=== PATIENT | female | born 1980 | race Hispanic/Latino ===

== ENCOUNTER 2022-03-22 00:36 | Day surgery (SDC) | payer OTHER, SELFPAY ==
[2022-03-19 12:06] VITALS: BMI 30.2
--- NOTE | 2022-03-19 12:12 | PC.NURSE ---
Report to the Outpatient Waiting Room, entrance under the green pavilion located off [facility], at time 1200 on date 03/22/22. OR Time: 1400. - You and your visitor will be asked to self-screen and do not enter if you have any COVID symptoms. - Only one visitor and NO children visitors are allowed at this time. - The patient visitor is requested to leave or wait in car when not with patient due to restrictions. - A mask is required within the hospital. Patients may have clear liquids (water, carbonated beverages, clear teas, apple juice) until 3 hours prior to surgery with a maximum of 20 ounces. - No food from midnight until time of surgery Take the following medications with a SIP of water the morning of surgery: ANTIBIOTIC Medications to discontinue per physician: N/A Date to take last dose: N/A Please no make-up, nail belarusian, hairspray, perfume, deodorant, or body powder the day of surgery. No jewelry (including any body piercings) or valuables the day of surgery, leave them at home. Please take a shower or bath the night before, or the morning of, surgery with an antibacterial soap. Wear comfortable, loose fitting clothing. - Jewelry must be removed prior to entering the operating room. Rings and piercings that are not removed may be cut off. - The hospital will not accept responsibility for valuables. - Please leave all valuables, including medications, at home the day of surgery. If you are going home after surgery, a licensed sales driver must drive you home. - NO public transportation without another adult. - We recommend that an adult stay with you for 24 hours following discharge. - We also recommend that you do not drive, make important decision, drink alcoholic beverages, or take any drugs that were not prescribed by your health care provider for at least 24 hours after your discharge time. Follow any additional instructions given to you from your surgeon. If you or anyone in your household have experienced Covid symptoms in the past week, please notify your surgeon or the nurse liaison at the phone number below for possible testing. Telephone instructions given to CARLOTA NEELY and asked if any additional questions and then verbalized understanding. Patient advised to call surgeon office or pre surgery nurse liaison [phone] if any additional questions.
--- NOTE | 2022-03-21 17:23 | PM.IMHP ---
H&P: HPI History of Present Illness Date/Time: 03/21/22 17:23 Chief Complaint: vaginal abscess Narrative: Rebekah is a 42yo who presents for vaginal abscess. She has had the same abscess incised and drained at least twice. She developed this abscess again on 03/18/22 and has been taking bactrim. She denies fever, chills. Review of Systems Review of Systems: All systems reviewed & are unremarkable except as noted in HPI and below PMFSH Past Medical History Medical History Factor V Leiden mutation affecting Family History Family History Mother Patient's mother is in good health Father Patient's father is in good health Sibling Patient's sister is in good health Patient's brother is in good health Social History Social History Smoking status: Never smoker Second hand tobacco smoke exposure: No Alcohol intake: current Alcohol use details: 2/MONTH Substance use: never Substance use type: does not use Living arrangements: with family Additional living arrangements comments: CHILDREN Spiritual care concerns: No Meds Home Medications and Allergies Home Medications Medication Instructions Recorded Confirmed Type sulfamethoxazole 800 1 tablet PO BID 7 days #14 tabs 03/18/22 03/19/22 Rx mg-trimethoprim 160 mg tablet (Bactrim DS) Allergies Allergy/AdvReac Type Severity Reaction Status Date / Time ciprofloxacin Allergy Unknown Rash Verified 03/19/22 12:04 Exam Const: General: cooperative, healthy appearing, comfortable and no acute distress Resp: Effort & Inspection: normal respiratory effort Cardio: Rate: regular rate GI: Inspection: normal to inspection GI Palp: No abdominal tenderness and Yes Soft to palpation : Other: deferred to OR Skin: General skin exam: normal color Neuro: General: patient oriented x3 Psych: Appearance: grossly normal Affect: normal affect Attitude: cooperative Assessment and Plan Assessment and plan (1) Abscess of vagina: Code(s): N76.0 - Acute vaginitis Status: Acute Plan - Pt has undergo incision and drainage in the office with antibiotic therapy at least twice - proceed with vaginal gland marsupialization, possible gland removal - risks and benefits explained in detail
--- NOTE | 2022-03-22 11:55 | WPDHPUPDATE1 ---
History and Physical Update Update Date/Time: 03/22/22 11:55 History and Physical has been reviewed, including an updated exam of the patient. There are NO changes in the patient's condition. Risks, benefits, and alternatives have been discussed and questions answered. Patient agrees to proceed with procedure.
[2022-03-22 12:00] VITALS: BP 144/84; PULSE 68; RESP 16; TEMP 36.2; O2SAT 100; BMI 29.9
[2022-03-22] MEDS: LACTATED RINGERS 1,000 ML 30 ML IV CONT (12:55)
--- NOTE | 2022-03-22 13:11 | P.PNAN_ITS ---
Anes - Initial Pre Proc Eval Procedure: Operation Date: 03/22/22 14:00 Proposed Procedures p Marsupialization Bartholin's Gland Cyst - Pat Gonsalez MD Date/Time: 03/22/22 13:11 Surgeon: Pat Gonsalez MD Pre Op Diagnosis: Bartholin Gland Cyst Patient Data Age: 42 Gender: F Height: 1.55 m Weight: 71.85 kg Allergies Allergy/AdvReac Type Severity Reaction Status Date / Time ciprofloxacin Allergy Unknown Rash Verified 03/22/22 12:41 Home Medications Medication Instructions Recorded Confirmed Type sulfamethoxazole 800 1 tablet PO BID 7 days #14 tabs 03/18/22 03/22/22 Rx mg-trimethoprim 160 mg tablet (Bactrim DS) Patient hx anesthesia problems: none Family hx anesthesia problems: none Results Review: All pre-operative results and documents have been reviewed as part of the pre- operative evaluation. [facility] Past Medical History Medical History Factor V Leiden mutation affecting Family History Family History Mother Patient's mother is in good health Father Patient's father is in good health Sibling Patient's sister is in good health Patient's brother is in good health Social History Social History Smoking status: Never smoker Second hand tobacco smoke exposure: No Alcohol intake: current Alcohol use details: 2/MONTH Substance use: never Substance use type: does not use Living arrangements: with family Additional living arrangements comments: CHILDREN Spiritual care concerns: No Anes - Eval Final PreProcedure Day of Procedure 03/22/22 13:11 Patient weight: overweight Heart: regular rate and rhythm Lungs: clear to auscultation Airway: Mallampati scale class II Neurological: alert and oriented Last oral intake: >/= 8 hours ASA classification: II Emergent: no Anesthetic plan: proceed Anesthesia type and monitoring: general GIVS and standard monitoring Results Review: All pre-operative results and documents have been reviewed as part of the pre- operative evaluation. Informed Consent: The patient's anesthetic plan and its attendant risks and benefits were discussed with the patient/family/POA. Questions were solicited and answers provided to the satisfaction of the patient/family/POA.
[2022-03-22] MEDS: ceFAZolin 2 GM/D5W 50 ML 2 GM/50 ML BAG IVPB (13:20)
[2022-03-22 14:22] VITALS: BP 106/70; PULSE 65; RESP 16; O2SAT 96
--- NOTE | 2022-03-22 14:23 | W.PM.PROC2 ---
Procedure Note - Detailed Date of Procedure 03/22/22 Pre-op Diagnosis Recurrent Seligman's Gland Abscess Post-op Diagnosis Same Procedure Performed Seligman's gland removal Surgeon Pat Gonsalez MD Anesthesia MAC and Local (8cc of lidocaine w/ epi used) Indications Recurrent skene's gland abscess s/p I&D and even word catheter placement with recurrence. Findings skenes gland abscess almost fully drained; only small punctate area draining a small amount of blood; skene's gland measured ~ 1x1cm; removed in almost entirety. Good hemostasis at end of case. Description of Procedure Rebekah was taken to the operating room where she was placed under MAC sedation. She was then prepped and draped in the usual sterile fashion in the dorsal lithotomy position with her legs in low Dipak stirrups. A time-out was performed and she received 2 g Ancef. Attention was turned down below where a [place]spana catheter was placed under aseptic technique. The left Seligman's gland abscess was noted to be mostly drained, but a small punctate area of bleeding/drainage was noted. The surrounding tissues were infiltrated with lidocaine with epinephrine. Using Metzenbaum scissors that punctate incision was extended to reveal the inside of the Seligman's gland. I attempted to perform a marsupialization, however it was unsuccessful and the opening was too small to allow for proper drainage. I then proceeded to perform a Seligman's gland removal. Using Metzenbaum scissors and the Bovie cautery the gland was almost completely excised without complications. I paid close attention on the urethral side to not damage the urethra (which is also why a Espana catheter was in place.) Pressure was applied to the area to decrease bleeding. A 3-0 Vicryl was used to reapproximate the deeper segment of the tissue and good hemostasis was noted. The overlying mucosa was then reapproximated using 3-0 Vicryl in a running subcuticular fashion. Good hemostasis was noted. The incision site was once again infiltrated with lidocaine for better pain control. The [place] catheter was removed. Sponge, lap, instrument, and needle counts were correct at the end the procedure. Patient was awoken from anesthesia and taken to recovery in a stable condition with plans of same-day discharge home. She will be provided a Zoe bottle. Estimated Blood Loss 20 IV Fluids 800 Packing No Pathology Yes (skene's gland abscess removal) Complications No immediate complications Condition Stable Disposition Same day [facility] Billing Surgery - Charge Forward: Surgery Billing
[2022-03-22] MEDS: LIDO 1%/EPINEPHRINE 1:100,000 50 ML VIAL INFILTRATE (14:25)
[2022-03-22 14:49] VITALS: BP 122/77; PULSE 54; RESP 16
--- NOTE | 2022-03-22 15:08 | SUR.PHASEII ---
1500 - ambulated to bathroom. gait steady. bret rogers on pt.
[2022-03-22 15:14] VITALS: BP 121/86; PULSE 55; RESP 16
[2022-03-22 15:35] VITALS: BP 108/80; PULSE 55; RESP 16
== END 2022-03-22 15:30 | disposition home or self-care (01) ==
PROVIDERS: PCP Internal Medicine; Visit Provider Obstetrics & Gynecology
PROC: (CPT 56440; principal; 2022-03-22 14:00)
DX: N34.0 Urethral abscess (principal); D68.51 Activated protein C resistance
CPT/HCPCS: 53270; 88305; J0690; J2250; J2270; J2704; J7120

== ENCOUNTER 2022-10-29 09:16 | Outpatient (CLI) | payer OTHER, SELFPAY ==
[2022-10-29 19:11] LABS: Basophils Absolute Auto 0.1 K/mm3 (0.0-0.1); Basophils Percent Auto 0.9 % (0.2-1.2); Eosinophils Absolute Auto 0.2 K/mm3 (0-0.3); Eosinophils Percent Auto 2.6 % (0-4.4); Hematocrit 42.3 % (37.0-47.0); Hemoglobin 13.7 g/dL (12.0-15.0); Immature Granulocyte Absolute 0.01 K/mm3 (0.00-0.031); Immature Granulocyte Percent A 0.2 % (0-0.5); Lymphocytes Absolute Auto 2.16 K/mm3 (0.9-3.2); Lymphocytes Percent Auto 33.1 % (18.3-44.2); Mean Corpuscular HGB Conc 32.4 g/dl (32-36); Mean Corpuscular Hemoglobin 31.2 pg (26-34); Mean Corpuscular Volume 96.4 fl (80-100); Mean Platelet Volume 11.5 fl (7.4-10.4); Monocytes Absolute Auto 0.5 K/mm3 (0.1-0.6); Monocytes Percent Auto 7.1 % (2.6-8.5); Neutrophils Absolute Auto 3.7 K/mm3 (1.3-6.7); Neutrophils Percent Auto 56.1 % (45.5-73.1); Platelet Count Result 310 k/mm3 (150-375); Red Blood Count 4.39 M/mm3 (4.2-5.4); Red Cell Distribution Width 13.2 % (11.5-14.5); White Blood Count 6.5 K/mm3 (4.5-10.0)
[2022-10-29 19:17] LABS: Alanine Aminotransferase 21 U/L (6-35); Albumin Level 4.4 g/dL (3.5-5.1); Alkaline Phosphatase 74 U/L (38-126); Anion Gap 4 mmol/L (8-16); Aspartate Amino Transferase 29 U/L (14-36); Bilirubin,Total 0.4 mg/dL (0.2-1.3); Blood Urea Nitrogen 9 mg/dL (7-17); Calcium 8.8 mg/dL (8.4-10.2); Carbon Dioxide 29 mmol/L (22-30); Chloride 105 mmol/L (98-107); Cholesterol 200 mg/dL (0-200); Estimated Glomerular Filt Rate > 60; Glucose 102 mg/dL (65-110); HDL Direct 53 mg/dL; Potassium 4.4 mmol/L (3.4-5.0); Sodium 138 mmol/L (137-145); Triglycerides 107 mg/dL (<150)
[2022-10-29 19:29] LABS: LDL Cholesterol Direct 111 mg/dL
[2022-10-29 19:51] LABS: Vitamin D 25 Hydroxy 33.1 ng/mL
== END 2022-10-29 09:17 | disposition home or self-care (01) ==
LOC: ANHGOSHLAB 09:17
PROVIDERS: PCP Family Medicine; Visit Provider Family Medicine
DX: E78.5 Hyperlipidemia, unspecified (principal); R53.83 Other fatigue; Z13.228 Encounter for screening for other metabolic disorders; Z13.29 Encounter for screening for other suspected endocrine disorder; E55.9 Vitamin D deficiency, unspecified
CPT/HCPCS: 36415; 80053; 80061; 82306; 84443; 85025

== ENCOUNTER 2024-01-30 11:00 | Outpatient (CLI) | payer OTHER, SELFPAY ==
[2024-01-30 14:23] LABS: Basophils Percent Auto 0.6 % (0.2-1.2); Eosinophils Absolute Auto 0.3 K/mm3 (0-0.3); Eosinophils Percent Auto 4.1 % (0-4.4); Hematocrit 42.4 % (37.0-47.0); Hemoglobin 13.9 g/dL (12.0-15.0); Immature Granulocyte Absolute 0.01 K/mm3 (0.00-0.031); Immature Granulocyte Percent A 0.1 % (0-0.5); Lymphocytes Absolute Auto 1.96 K/mm3 (0.9-3.2); Lymphocytes Percent Auto 28.9 % (18.3-44.2); Mean Corpuscular HGB Conc 32.8 g/dl (32-36); Mean Corpuscular Hemoglobin 30.4 pg (26-34); Mean Corpuscular Volume 92.8 fl (80-100); Mean Platelet Volume 10.5 fl (7.4-10.4); Monocytes Absolute Auto 0.5 K/mm3 (0.1-0.6); Monocytes Percent Auto 6.6 % (2.6-8.5); Neutrophils Absolute Auto 4.1 K/mm3 (1.3-6.7); Neutrophils Percent Auto 59.7 % (45.5-73.1); Platelet Count Result 328 k/mm3 (150-375); Red Blood Count 4.57 M/mm3 (4.2-5.4); Red Cell Distribution Width 13.5 % (11.5-14.5); White Blood Count 6.8 K/mm3 (4.5-10.0)
[2024-01-30 14:51] LABS: LDL Cholesterol Direct 131 mg/dL
[2024-01-30 14:55] LABS: Alanine Aminotransferase 19 U/L (6-35); Albumin Level 4.2 g/dL (3.5-5.1); Alkaline Phosphatase 70 U/L (38-126); Anion Gap 9 mmol/L (4-12); Aspartate Amino Transferase 39 U/L (14-36); Bilirubin,Total 0.6 mg/dL (0.2-1.3); Blood Urea Nitrogen 11 mg/dL (7-17); Calcium 8.9 mg/dL (8.4-10.2); Carbon Dioxide 26 mmol/L (22-30); Chloride 104 mmol/L (98-107); Cholesterol 205 mg/dL (0-200); Estimated Glomerular Filt Rate > 60; Glucose 88 mg/dL (65-110); HDL Direct 52 mg/dL; Sodium 139 mmol/L (137-145); Triglycerides 77 mg/dL (<150)
[2024-01-30 15:02] LABS: Free T4 Free Thyroxine 1.38 ng/mL (0.78-2.19)
== END 2024-01-30 11:01 | disposition home or self-care (01) ==
LOC: ANHGOSHLAB 11:01
PROVIDERS: PCP Family Medicine; Visit Provider Family Medicine
DX: Z13.220 Encounter for screening for lipoid disorders (principal); R53.83 Other fatigue; Z13.228 Encounter for screening for other metabolic disorders; Z13.29 Encounter for screening for other suspected endocrine disorder; D68.51 Activated protein C resistance
CPT/HCPCS: 36415; 80053; 80061; 84439; 84443; 85025

== ENCOUNTER 2024-06-08 12:53 | Outpatient (CLI) | payer OTHER, SELFPAY | END 2024-06-08 12:54 | disposition home or self-care (01) | PROVIDERS: PCP Family Medicine; Visit Provider Obstetrics & Gynecology | DX: N93.9 Abnormal uterine and vaginal bleeding, unspecified (principal) | CPT/HCPCS: 36415; 86850; 86900; 86901 ==

== ENCOUNTER 2024-06-14 00:09 | Day surgery (SDC) | payer OTHER, SELFPAY ==
[2024-06-08 08:33] VITALS: BMI 30.1
--- NOTE | 2024-06-08 08:34 | PC.NURSE ---
Report to the Outpatient Waiting Room, entrance under the green pavilion located off [facility], at time _0630_ on date _[id number]_. Planned Procedure Time: _0830_.? Time changes happen often and if your time is changed the preop area will call you the afternoon before. - You and your visitor will be asked to self-screen and do not enter if you have any COVID symptoms. Please call surgeon if you need to reschedule. - A mask is optional within the hospital at this time. Patients may have clear liquids (water, carbonated beverages, clear teas, apple juice) until 3 hours prior to surgery with a maximum of 20 ounces. - No food from midnight until time of surgery and no smoking. This includes no chewing gum, candy or mints. Take only the following medications with a SIP of water on the morning of surgery: ___None___ DO NOT STOP ANY OF YOUR OTHER PRESCRIPTION MEDICATIONS PRIOR TO SURGERY EXCEPT THE FOLLOWING Medications to discontinue per physician __None Please no make-up, nail south african, hairspray, perfume, deodorant, or body powder the day of surgery.? No jewelry (including any body piercings) or valuables the day of surgery, leave them at home.? Please take a shower or bath the night before, or the morning of, surgery with an antibacterial soap.? Wear comfortable, loose fitting clothing.? - Jewelry must be removed prior to entering the operating room.? Rings and piercings that are not removed may be cut off. - The hospital will not accept responsibility for valuables.? - Please leave all valuables, including medications, at home the day of surgery. If you are going home after surgery, a licensed cdl flatbed truck driver must drive you home.? - NO public transportation without another adult if you receive anesthesia. - We recommend that an adult stay with you for 24 hours following discharge. - We also recommend that you do not drive, make important decision, drink alcoholic beverages, or take any drugs that were not prescribed by your health care provider for at least 24 hours after your discharge time. Follow any additional instructions given to you from your surgeon. Telephone instructions given to _Irma_and asked if any additional questions and then verbalized understanding. Patient advised to call surgeon office or pre surgery nurse liaison [phone] if any additional questions.
--- NOTE | 2024-06-13 13:47 | P.HP_ITS ---
H&P: HPI History of Present Illness Date/Time: 06/13/24 13:47 Chief Complaint: AUB, fibroid uterus Narrative: Rebekah is a 44yo [id number] who presents for surgical management for AUB/fibroid uterus. For the last two years, she has reported that her menses now last 7 day but has heavy bleeding and cramping x2 days. She has to use pads and tampons at the same time and change them frequently and is passing large clots those first two days. She had blood work recently with her PCP and had normal blood counts and TSH. She has Factor V Leiden. She had a DOWNSTAIRS MAID US 01/2023 showing 4cm fibroid; possibly type 2 submucosal. She had a normal EMB 04/2024 and normal pap smear 12/2022. She has a h/o s/p skene's gland removal 03/2022 and denies any issues with abscesses anymore. Review of Systems Constitutional: Constitutional: Denies chills, Denies fever(s) and Denies headache(s) Eyes: Eyes: Denies change in vision ENT: Denies dizziness and Denies headache(s) Cardiovascular: Cardiovascular: Denies chest pain and Denies dyspnea Respiratory: Respiratory: Denies cough and Denies dyspnea Gastrointestinal: Gastrointestinal: Denies abdominal pain and Denies change in stool character Genitourinary: Genitourinary: Reports abnormal menses, Reports menorrhagia, Reports dysmenorrhea, Denies pelvic pain, Denies vaginal discharge, Denies vaginal odor and Denies vaginal pruritus Neurologic: Denies dizziness and Denies headache(s) Psychiatric: Psychiatric: Denies anxiety and Denies depression [facility] Past Medical History Medical History Factor V Leiden mutation affecting Gestational diabetes Surgical History Surgical History Delivery by section (01/16/06) repeat c/s Delivery by section (07/21/99) primary c/s failure to dilate H/O abdominoplasty (08/12/19) H/O rhinoplasty (08/12/19) H/O tubal ligation (01/16/06) History of gynecological procedure (01/23/11) cryo History of gynecological procedure (03/22/22) [place]'s gland removal History of hysteroscopy suction D&C missed AB History of hysteroscopy (06/18/21) hysteroscopic D&C , myomectomy / Fibroid Hx of breast implants, bilateral (08/12/19) Family History Family History Mother Patient's mother is in good health Father Patient's father is in good health Hypertension Sibling Patient's sister is in good health Patient's brother is in good health Social History Social History Smoking status: Never smoker Second hand tobacco smoke exposure: No Alcohol intake: current Alcohol use details: social Substance use: never Substance use type: does not use Do You Feel Safe in your Home?: Yes Lack of Transportation: No Lack of Food: Never True Current Housing: I Have Housing Concerned About Future Housing: No Difficulty Paying Gas/Electric Bills: No Difficulty Paying for Meds: No Currently Unemployed: No Education: High School Diploma/GED Difficulty w/ Childcare or Family Care: No Living arrangements: with family Occupation/Education: occupation Gender identity (if verbalized by the patient): Female Sexual Orientation (if Verbalized by the Patient): Straight or Heterosexual Spiritual care concerns: No Agree to blood products: Yes Meds Home Medications and Allergies Home Medications Medication Instructions Recorded Confirmed Type No Home Medications 01/30/24 06/08/24 History Allergies Allergy/AdvReac Type Severity Reaction Status Date / Time ciprofloxacin Allergy Unknown Rash Verified 06/08/24 08:27 Exam Const: General: cooperative, healthy appearing, comfortable and no acute distress Orientation/consciousness: patient oriented x3 Resp: Effort & Inspection: normal respiratory effort Cardio: Rate: regular rate GI: Inspection: normal to inspection GI Palp: No abdominal tenderness and Yes Soft to palpation : Other: deferred to OR Skin: General skin exam: normal color Neuro: General: patient oriented x3 Extrem: General: normal to inspection Psych: Appearance: grossly normal Affect: normal affect Attitude: cooperative Assessment and Plan Assessment and plan (1) Fibroid uterus: Code(s): D25.9 - Leiomyoma of uterus, unspecified Status: Acute (2) Menorrhagia: Code(s): N92.0 - Excessive and frequent menstruation with regular cycle Status: Acute Plan - DOWNSTAIRS MAID US showed 4cm type 2 submucosal fibroid - Pap and EMB UTD and normal - Recommend proceeding with hysterectomy or IUD as she cannot have systemic hormones; would recommend hysterectomy as the Mirena IUD may not work well with the IUD and can continue to grow and if it doesn't work; would potentially need open hysterectomy - Pt desires to proceed with robotic assisted total laparoscopic hysterectomy with bilateral salpingectomy and cystoscopy - Risks and benefits of surgery discussed in detail including but not limited to pain, bleeding, injury to nearby structures (bowel, bladder, ureter, ovary, blood vessels, nerves) or infection (skin, vaginal, pelvic). - I have also discussed the recommended time off and natural course of healing/downtime
[2024-06-14] VITALS (10 sets, daily range): BP systolic 97–134; BP diastolic 60–84; PULSE 71–94; RESP 14–18; TEMP 36.1–36.8; O2SAT 96–100
--- NOTE | 2024-06-14 06:37 | WPDHPUPDATE1 ---
History and Physical Update Update Date/Time: 06/14/24 06:37 History and Physical has been reviewed, including an updated exam of the patient. There are NO changes in the patient's condition. Risks, benefits, and alternatives have been discussed and questions answered. Patient agrees to proceed with robotic assisted total laparoscopic hysterectomy with bilateral salpingectomy and cystoscopy.
[2024-06-14] MEDS: ACETAMINOPHEN 500 MG TABLET 1000 MG PO ×3 (07:00→18:38)
[2024-06-14] MEDS: LACTATED RINGERS 1,000 ML 30 ML IV CONT ×2 (07:00→10:54)
[2024-06-14] MEDS: KETOROLAC 15 MG/ML VIAL (*BKC) IV PUSH (07:05)
[2024-06-14 07:22] LABS: BEDSIDEPREGUCG Negative (Negative)
--- NOTE | 2024-06-14 08:15 | WPDANESEPPF ---
Anes - Initial Pre Proc Eval Procedure: Operation Date: 06/14/24 08:30 Proposed Procedures p Robotic Assisted Total Laparoscopic Hysterectomy, Bilateral Salpingectomy - Pat Gonsalez MD Date/Time: 06/14/24 08:15 Surgeon: Pat Gonsalez MD Pre Op Diagnosis: abn uterine bleeding Patient Data Age: 44 Gender: F Height: 1.55 m Weight: 74.1 kg Last Vital Signs Temp 97.7 F 06/14/24 06:35 Pulse 72 06/14/24 06:35 Resp 16 06/14/24 06:35 BP 114/82 06/14/24 06:35 Pulse Ox 100 06/14/24 06:35 O2 Del Method Room Air 06/14/24 06:35 Allergies Allergy/AdvReac Type Severity Reaction Status Date / Time ciprofloxacin Allergy Unknown Rash Verified 06/14/24 07:27 Home Medications Medication Instructions Recorded Confirmed Type No Home Medications 01/30/24 06/14/24 History Laboratory Tests 06/14/24 07:20 POC Urine HCG, Qual Negative (Negative) Patient hx anesthesia problems: none Family hx anesthesia problems: none Results Review: All pre-operative results and documents have been reviewed as part of the pre-operative evaluation. [facility] Past Medical History Medical History Factor V Leiden mutation affecting Gestational diabetes Surgical History Surgical History Delivery by section (01/16/06) repeat c/s Delivery by section (07/21/99) primary c/s failure to dilate H/O abdominoplasty (08/12/19) H/O rhinoplasty (08/12/19) H/O tubal ligation (01/16/06) History of gynecological procedure (01/23/11) cryo History of gynecological procedure (03/22/22) [place]'s gland removal History of hysteroscopy suction D&C missed AB History of hysteroscopy (06/18/21) hysteroscopic D&C , myomectomy / Fibroid Hx of breast implants, bilateral (08/12/19) Family History Family History Mother Patient's mother is in good health Father Patient's father is in good health Hypertension Sibling Patient's sister is in good health Patient's brother is in good health Social History Social History Smoking status: Never smoker Second hand tobacco smoke exposure: No Alcohol intake: current Alcohol use details: social Substance use: never Substance use type: does not use Do You Feel Safe in your Home?: Yes Lack of Transportation: No Lack of Food: Never True Current Housing: I Have Housing Concerned About Future Housing: No Difficulty Paying Gas/Electric Bills: No Difficulty Paying for Meds: No Currently Unemployed: No Education: High School Diploma/GED Difficulty w/ Childcare or Family Care: No Living arrangements: with family Occupation/Education: occupation Gender identity (if verbalized by the patient): Female Sexual Orientation (if Verbalized by the Patient): Straight or Heterosexual Spiritual care concerns: No Agree to blood products: Yes Anes - Eval Final PreProcedure Day of Procedure 06/14/24 08:15 Patient weight: normal Heart: regular rate and rhythm Lungs: clear to auscultation Airway: Mallampati scale class II Neurological: alert and oriented Last oral intake: >/= 8 hours ASA classification: II Emergent: no Anesthetic plan: proceed Anesthesia type and monitoring: general ETT and standard monitoring Results Review: All pre-operative results and documents have been reviewed as part of the pre-operative evaluation. Informed Consent: The patient's anesthetic plan and its attendant risks and benefits were discussed with the patient/family/POA. Questions were solicited and answers provided to the satisfaction of the patient/family/POA.
[2024-06-14] MEDS: ceFAZolin 2 GM/D5W 50 ML 2 GM/50 ML BAG IVPB (08:46)
[2024-06-14] MEDS: metroNIDAZOLE 500 MG/ISO 100ML 500 MG/100 ML BAG 100 MG IVPB (08:59)
[2024-06-14] MEDS: LIDO 1%/EPINEPHRINE 1:100,000 20 ML VIAL 30 ML INFILTRATE (09:23)
--- NOTE | 2024-06-14 10:35 | W.PM.PROC2 ---
Procedure Note - Detailed Date of Procedure 06/14/24 Pre-op Diagnosis abn uterine bleeding fibroid uterus Post-op Diagnosis Same Procedure Performed Robotic assisted total laparoscopic hysterectomy, bilateral salpingectomy, and cystoscopy Surgeon Pat Gonsalez MD Interlocking Machine Operator Isiah Anesthesia MAC and Local (20cc of 1% lido w/ epi) Findings Uterus sounded to 10cm; cervix 3cm. enlarged, bulky uterus; possible fundal/posterior fibroid. History of tubal ligation; right paratubal cyst ~3cm. Normal bilateral ovaries. Normal bladder w/o defects or masses. Bilateral ureteral efflux noted. Surgicel powder used. Good hemostasis at end of case. Uterus/cervix/bilateral fallopian tubes: 274.5g Description of Procedure Rebekah was taken to the operating room where she was placed under general anesthesia without issues. She received 2 g Ancef and 500mg Metronidazole. She was then prepped and draped in the usual sterile fashion in the dorsal lithotomy position with her legs in low Dipak stirrups, her arms tucked at her side, with a strap over her chest. A time-out was performed. My attention was turned down below where a [place] catheter was placed. A bivalve speculum was placed within the vagina. The cervix was easily identified and the anterior lip of the cervix was grasped with single-tooth tenaculum. The uterus was then sounded to 10cm. The cervix was serially dilated to allow for the MITCH uterine manipulator; which was placed w/o issue (8cm tip with 3cm cervical ring). My gloves were changed and attention was then turned to the abdomen. A 5 mm trocar was placed under direct visualization at [place] point without issue. Once intra-abdominal placement was confirmed, the abdomen was insufflated with carbon dioxide gas. An abdominal survey was performed and the above findings were noted. Two additional ports were placed on the right and left side and the camera port was placed supraumbilical under direct visualization without issues. The 5mm port was switched out for the accessory port under direct visualization. The patient was then placed in deep Trendelenburg, with the legs slightly lowered. The robot was then docked. The instruments were placed intra-abdominally under direct visualization. I then un-scrubbed and went to the robotic console. I then started my hysterectomy on the right side. The ureter was easily identified transperitoneally and well out of the surgical field. The right fallopian tubal stump and paratubal cyst were elevated and the mesosalpinx was coagulated and transected. The round ligament was clamped, coagulated, and transected. The uterine ovarian artery was then serially clamped, coagulated, and transected with good hemostasis. The broad ligament was then dissected anteriorly and posteriorly skeletonizing the uterine artery. The bladder flap was then developed on the right side and carried around the left, anteriorly. The uterine artery was then serially clamped and coagulated. Once the vessel was adequately coagulated, it was then transected with good hemostasis. The same procedure was then performed on the left side without complications. The uterus was noted to be devascularized. The bladder flap was verified out of the surgical field and the colpotomy was started anteriorly and continued in a clockwise fashion until the uterus was released. The uterus was removed from the abdomen via the vagina without complications. The vaginal cuff had small bleeders that were made hemostatic without complications. The vaginal cuff was then reapproximated using a 0 V lock suture. The pelvis was then irrigated and suctioned free of all clots and debris. Surgicel powder was placed over the raw edges; the hemoperitoneum was released and good hemostasis was noted. All instruments were removed from the abdomen and the robot was undocked. I then scrubbed back in and verified that the cuff was intact without any defects. The [place] catheter was then removed. The cystoscope was placed within the bladder, which filled without difficulty. Bilateral ureteral efflux was noted. The bladder was examined and no defects or abnormalities were visualized. The bladder was drained. The cystoscope was removed. The [place] catheter was replaced under aseptic technique. The 4 laparoscopic incisions were reapproximated using 4-0 Monocryl and covered with Dermabond. The laparoscopic incisions were infiltrated with local anesthesia for better pain control. Sponge, lap, instrument, and needle counts were correct at the end the procedure. Patient was awoken from general anesthesia and taken to recovery in a stable conditions with plans of overnight stay. Estimated Blood Loss 20 IV Fluids 1,500 Urine Output 50 Pathology Yes (Uterus, cervix, bilateral fallopian tubes) Complications No immediate complications Condition Stable Disposition Floor [facility] Billing Surgery - Charge Forward: Surgery Billing
[2024-06-14] MEDS: fentaNYL CITRATE INJ (*CRX) 100 MCG/2 ML VIAL 25 MCG IV PUSH ×3 (10:57→11:07)
[2024-06-14] MEDS: diphenhydrAMINE HCl INJ 50 MG/ML VIAL 12.5 MG IV PUSH ×2 (11:10→11:27)
--- NOTE | 2024-06-14 12:13 | PC.NURSE ---
This patient, Rebekah Rae, was received from PACU on 06/14/24 at 1213. Patient/family oriented to unit policies and routines.
[2024-06-14] MEDS: SIMETHICONE 80 MG TAB.CHEW PO ×2 (12:50→16:27)
[2024-06-14] MEDS: KETOROLAC 30 MG/ML VIAL (*BKC) IV PUSH ×2 (12:51→18:38)
[2024-06-14] MEDS: DEXTROSE 5%/LACTATED RINGERS 1,000 ML 125 ML IV CONT (12:51)
[2024-06-14] MEDS: DOCUSATE SODIUM 100 MG CAPSULE PO (16:27)
[2024-06-14] MEDS: oxyCODONE HCL (*CRX) 5 MG TAB IR 10 MG PO (16:27)
--- NOTE | 2024-06-14 17:32 | PC.NURSE ---
1230 Upon assessment, serosanguineous drainage noted on gown from incision above umbilicus, no active drainage seen. RN applied telfa pad and tape to the incision. MD to be called. [address] message [address] Dr[address] Gonsalez voicemail, she is in the OR with another case. 1255 RN checked telfa pad and no drainage seen. [address] Gonsalez advised about the drainage seen prior, she would like steri strips, telfa and tape applied to the incision, she will be up to see the patient later today. 1315 RN applied 2 (1/2 inch) steri strips, telfa pad and paper tape to the incision above the umbilicus. 1505 Dr. Gonsalez @ patient bedside to assess the incision. No further orders.
[2024-06-14] MEDS: ENOXAPARIN 30 MG/0.3 ML SYRINGE SUB-Q (21:03)
[2024-06-15] MEDS: KETOROLAC 30 MG/ML VIAL (*BKC) IV PUSH (01:48)
[2024-06-15] MEDS: ACETAMINOPHEN 500 MG TABLET 1000 MG PO ×2 (01:48→07:07)
[2024-06-15 03:30] VITALS: BP 110/66; PULSE 64; RESP 18; TEMP 36.2; O2SAT 98
[2024-06-15 05:47] LABS: Basophils Percent Auto 0.2 % (0.2-1.2); Eosinophils Percent Auto 0.1 % (0-4.4); Immature Granulocyte Absolute 0.08 K/mm3 (0.00-0.031); Immature Granulocyte Percent A 0.5 % (0-0.5); Lymphocytes Absolute Auto 2.36 K/mm3 (0.9-3.2); Lymphocytes Percent Auto 15.1 % (18.3-44.2); Mean Corpuscular HGB Conc 33.3 g/dl (32-36); Mean Corpuscular Hemoglobin 30.5 pg (26-34); Mean Corpuscular Volume 91.4 fl (80-100); Monocytes Absolute Auto 0.9 K/mm3 (0.1-0.6); Monocytes Percent Auto 5.5 % (2.6-8.5); Neutrophils Absolute Auto 12.3 K/mm3 (1.3-6.7); Neutrophils Percent Auto 78.6 % (45.5-73.1); Platelet Count Result 303 k/mm3 (150-375); Red Blood Count 3.94 M/mm3 (4.2-5.4); Red Cell Distribution Width 13.3 % (11.5-14.5); White Blood Count 15.6 K/mm3 (4.5-10.0)
[2024-06-15 06:03] LABS: Anion Gap 4 mmol/L (4-12); Blood Urea Nitrogen 9 mg/dL (7-17); Calcium 8.1 mg/dL (8.4-10.2); Carbon Dioxide 22 mmol/L (22-30); Chloride 107 mmol/L (98-107); Estimated CRCL calculation 108 ml/min; Estimated Glomerular Filt Rate > 60; Glucose 99 mg/dL (65-110); Potassium 3.8 mmol/L (3.4-5.0); Sodium 133 mmol/L (137-145)
[2024-06-15] MEDS: oxyCODONE HCL (*CRX) 5 MG TAB IR 10 MG PO (07:01)
[2024-06-15] MEDS: DOCUSATE SODIUM 100 MG CAPSULE PO (07:01)
[2024-06-15] MEDS: SIMETHICONE 80 MG TAB.CHEW PO (07:01)
[2024-06-15] MEDS: IBUPROFEN 600 MG TABLET PO (07:07)
--- NOTE | 2024-06-15 07:35 | PM.GYNPNOP ---
INSTITUTION DIRECTOR - A/P Assessment and plan (1) S/P laparoscopic hysterectomy: Code(s): Z90.710 - Acquired absence of both cervix and uterus Status: Acute Postoperative Procedures: Procedures Operation Date: 06/14/24 08:30 Actual Procedure Side Surgeon p Robotic Assisted Total Laparoscopic Hysterectomy, Bilateral Salpingectomy Bilateral Pat Gonsalez MD Postoperative day: 1 Postoperative status: doing well Postoperative plan: routine post-op care, discharge and other (awaiting flatus; if nothing after breakfast, will do suppository) Time Spent With Patient Time: Total time spent is greater than 50% in coordination of care (as documented) at patient's floor/unit and/or counseling patient: Time with patient: less than 15 minutes INSTITUTION DIRECTOR- PN:Subj Post-Op Subjective Date/time seen: 06/15/24 07:35 Interval history: POD#1 Rebekah reports doing well today. No issues overnight. Her pain is controlled with PO meds. She has tolerated regular diet. She denies any vaginal bleeding. She has voided. But she has not passed flatus-- feels a lot of movement in her bowels though. She has ambulated and denies any symptoms of anemia. Review of Systems Review of Systems: All systems reviewed & are unremarkable except as noted in HPI and below (HPI) Constitutional: Constitutional: Denies chills, Denies fever(s) and Denies headache(s) Eyes: Eyes: Denies change in vision ENT: Denies dizziness and Denies headache(s) Cardiovascular: Cardiovascular: Denies chest pain and Denies rapid heart rate Respiratory: Respiratory: Denies cough Genitourinary: Genitourinary: Denies abnormal vaginal bleeding Neurologic: Denies dizziness and Denies headache(s) Exam Const: General: cooperative, healthy appearing, comfortable and no acute distress Orientation/consciousness: patient oriented x3 Resp: Effort & Inspection: normal respiratory effort Auscultation: clear to auscultation bilaterally Cardio: Rate: regular rate GI: Inspection: normal to inspection and incision ( LSC incisions c/d/i) GI Palp: Yes abdominal tenderness (appropriate) and Yes Soft to palpation Auscultation: normal bowel sounds : Other: normal bleeding on pad Skin: General skin exam: normal color Neuro: General: patient oriented x3 Psych: Appearance: grossly normal Affect: normal affect Attitude: cooperative INSTITUTION DIRECTOR - PN: Obj Data Vital Signs Vital Signs: Vital Signs - 24 hr 06/14/24 06:35 06/14/24 10:46 06/14/24 11:00 Temperature 97.7 F 98.2 F Pulse Rate 72 94 85 Respiratory Rate 16 14 15 Blood Pressure 114/82 134/84 97/60 L Pulse Oximetry 100 100 100 Oxygen Delivery Room Air Trach Collar Simple Face Mask Oxygen Flow Rate 8 8 06/14/24 11:15 06/14/24 11:30 06/14/24 11:45 Temperature Pulse Rate 72 74 73 Respiratory Rate 14 16 14 Blood Pressure 104/72 100/60 105/63 Pulse Oximetry 100 100 100 Oxygen Delivery Simple Face Mask Room Air Room Air Oxygen Flow Rate 8 06/14/24 11:58 06/14/24 12:30 06/14/24 16:40 Temperature 97.6 F 98.0 F Pulse Rate 74 77 73 Respiratory Rate 14 16 16 Blood Pressure 111/70 118/74 110/63 Pulse Oximetry 98 96 97 Oxygen Delivery Room Air Oxygen Flow Rate 06/14/24 18:35 Temperature 97 F L Pulse Rate 71 Respiratory Rate 18 Blood Pressure 116/69 Pulse Oximetry 100 Oxygen Delivery Oxygen Flow Rate Intake/Output Intake/Output: Intake & Output 06/11/24 06/12/24 06/13/24 06/14/24 23:59 23:59 23:59 23:59 Intake Total 3820 Output Total 1030 Balance 2790 Meds/Results Medications: Active Medications Generic Name Dose Route Start Last Admin Trade Name Freq PRN Reason Stop Dose Admin Acetaminophen 1,000 mg 06/14/24 12:06 06/14/24 18:38 Acetaminophen 500 Mg Tablet PO 1,000 mg Q6HR RAHUL Administration Docusate Sodium 100 mg 06/14/24 17:00 06/14/24 16:27 Docusate Sodium 100 Mg Capsule PO 100 mg BID RAHUL Administration Hydromorphone HCl 0.5 mg 06/14/24 12:06 Hydromorphone Hcl Inj (*Crx) 1 Mg/Ml Syr IV PUSH Q2H PRN Breakthrough Pain Rated 4-6 or NPO Dextrose/Lactated Ringer's 1,000 mls @ 125 mls/hr 06/14/24 12:06 06/14/24 16:30 Dextrose 5%/Lactated Ringers IV CONT Infused .Q8H RAHUL Infusion Ibuprofen 600 mg 06/15/24 06:00 Ibuprofen 600 Mg Tablet PO Q6HR RAHUL Ketorolac Tromethamine 30 mg 06/14/24 12:06 06/14/24 18:38 Ketorolac 30 Mg/Ml Vial (*Bkc) IV PUSH 06/15/24 00:01 30 mg Q6HR RAHUL Administration Naloxone HCl 0.1 mg 06/14/24 12:06 Naloxone Hcl 0.4 Mg/Ml Vial IV PUSH Q2M PRN Respiratory rate less than 10 Ondansetron HCl 4 mg 06/14/24 12:06 Ondansetron Inj 4 Mg/2 Ml Vial IV PUSH Q6H PRN Nausea And Vomiting Oxycodone HCl 5 mg 06/14/24 12:06 Oxycodone Hcl (*Crx) 5 Mg Tab Ir PO Q4H PRN Pain Rated 4-6 Oxycodone HCl 10 mg 06/14/24 12:06 06/14/24 16:27 Oxycodone Hcl (*Crx) 5 Mg Tab Ir PO 10 mg Q6H PRN Administration Pain Rated 7-10 Simethicone 80 mg 06/14/24 12:06 06/14/24 16:27 Simethicone 80 Mg Tab.Chew PO 80 mg TIDWM RAHUL Administration Labs 06/15/24 03:26 06/15/24 03:26 Labs: Laboratory Results - last 24 hr 06/14/24 07:20 POC Urine HCG, Qual Negative
[2024-06-15 08:23] VITALS: BP 109/70; PULSE 68; RESP 18; TEMP 36.9; O2SAT 99
--- NOTE | 2024-06-15 08:55 | WPDANESPN ---
Anes - Prog Note Post-Op Date/Time: 06/15/24 08:55 Cardiovascular status: normal Respiratory status: normal Airway patency: baseline Mental status: baseline Post-Op hydration status: normal Vital Signs: Last Vital Signs Temp 36.9 C 06/15/24 08:23 Pulse 68 06/15/24 08:23 Resp 18 06/15/24 08:23 BP 109/70 06/15/24 08:23 Pulse Ox 99 06/15/24 08:23 O2 Del Method Room Air 06/15/24 08:00 O2 Flow Rate 8 06/14/24 11:15 Pain Score (VAS): 09/27 I/O: Intake & Output 06/14/24 06/15/24 06/15/24 23:59 07:59 15:59 Intake Total 1470 100 Output Total 700 Balance 770 100 Laboratory Tests 06/15/24 03:26 06/15/24 03:26 06/15/24 03:26 WBC 15.6 H RBC 3.94 L Hgb 12.0 Hct 36.0 L MCV 91.4 MCH 30.5 MCHC 33.3 RDW 13.3 Plt Count 303 MPV 11.0 H Immature Gran % (Auto) 0.5 Neut % (Auto) 78.6 H Lymph % (Auto) 15.1 L [place] % (Auto) 5.5 Eos % (Auto) 0.1 Baso % (Auto) 0.2 Lymph # (Auto) 2.36 [place] # (Auto) 0.9 H Eos # (Auto) 0.0 Baso # (Auto) 0.0 Abs Immat Gran (auto) 0.08 H Absolute Neuts (auto) 12.3 H Absolute Nucleated RBC 0.000 Nucleated RBC % 0.0 Sodium 133 L Potassium 3.8 Chloride 107 Carbon Dioxide 22 Anion Gap 4 BUN 9 Creatinine 0.50 L Estim Creat Clear Calc 108 Estimated GFR > 60 Glucose 99 Calcium 8.1 L Post-procedural complaints: none Patient Feedback: Patient satisfied with anesthetic care.
== END 2024-06-15 09:02 | disposition home or self-care (01) ==
LOC: ANHSURGERY 06:28 → ANHOB2 12:10
PROVIDERS: PCP Family Medicine; Visit Provider Obstetrics & Gynecology
PROC: (CPT 58571; principal; 2024-06-14 08:30)
DX: D25.0 Submucous leiomyoma of uterus (principal); N83.8 Other noninflammatory disorders of ovary, fallopian tube and broad ligament; D68.51 Activated protein C resistance; Z98.890 Other specified postprocedural states; Z98.51 Tubal ligation status
CPT/HCPCS: 58571; S2900; 36415; 80048; 85025; 88307; 99199; A9270; J0690; J1100; J1171; J1200; J1650; J1836; J1885; J2003; J2004; J2250; J2405; J2704; J3010; J7120; J7121

== ENCOUNTER 2024-07-02 13:33 | Observation (INO) | payer OTHER, SELFPAY ==
--- NOTE | ~2024-07-02 | CT_ITS ---
EXAMINATION: CT abdomen pelvis w con DATE: 07/02/2024 17:08 INDICATION: Left lower quadrant abdominal pain. Left flank pain. TECHNIQUE: Computed tomography (CT) of the abdomen and pelvis was performed with 100 mL Omnipaque 350 intravenous contrast. Automated exposure control and iterative reconstruction technique were employe d. The dose-length product was 356.18 mGy-cm. COMPARISON: None. FINDINGS: The visualized portions of the lung bases demonstrate mild atelectasis. No pleural effusion . The heart size is normal. No pericardial effusion. There are bilateral breast implants. The liver, gallbladder, spleen, pancreas, adrenal glands, and kidneys are normal. There is a 4.6 x 2.3 x 2.1 cm rim-enhancing fluid collection in the hysterectomy bed. There are no dilated loops of bowel. The appe ndix is normal. There are no pathologically enlarged lymph nodes. There is widespread subcutaneous fa t stranding, likely changes of abdominoplasty. There is mild thoracic and lumbar spondylosis. IMPRESSION: 1. 4.6 x 2.3 x 2.1 cm rim-enhancing fluid collection in the hysterectomy bed, likely a subacute hemat brayden. Reviewed, dictated and finalized at location A. [employer] WORK[employer] HELPER IMPRESSION: 1. 4.6 x 2.3 x 2.1 cm rim-enhancing fluid collection in the hysterectomy bed, l ikely a subacute hematoma.
[2024-07-02 14:11] VITALS: BP 125/79; PULSE 85; RESP 18; TEMP 36.2; O2SAT 100
--- NOTE | 2024-07-02 15:10 | ED_ITS ---
HPI - General Adult General Chief complaint: Recheck/Abnormal Lab/Rx <Victor Hugo Leon PA-C - Last Filed: 07/02/24 16:07> Stated complaint: post op complaints <Victor Hugo Leon PA-C - Last Filed: 07/02/24 16:07> Time Seen by Provider: 07/02/24 15:09 <Victor Hugo Leon PA-C - Last Filed: 07/02/24 16:07> Focused HPI: This is a 44-year-old female who presents to the ED with chief complaint of left flank and left abdominal pain over last couple of days. She had hysterectomy a couple weeks ago with Dr. Gonsalez recommended coming to the ER. GENERAL: Well-appearing, well-nourished, and in no acute distress. HEAD: Normocephalic, atraumatic. CHEST: Clear to auscultation. No respiratory distress. HEART: Regular rate and rhythm. NEURO: Alert and oriented x3. Patient screened in triage and initial orders placed. Additional care and disposition to be based upon diagnostic testing and treatment. <Victor Hugo Leon PA-C - Last Filed: 07/02/24 16:07> Source: patient <Victor Hugo Leon PA-C - Last Filed: 07/02/24 16:07> Mode of arrival: ambulatory <Victor Hugo Leon PA-C - Last Filed: 07/02/24 16:07> Limitations: no limitations <Victor Hugo Leon PA-C - Last Filed: 07/02/24 16:07> History of Present Illness HPI narrative: Agree with HPI <Malvin Robert MD - Last Filed: 07/02/24 22:47> Related Data Home medications: Home Medications ?Medication ?Instructions ?Recorded ?Confirmed ?Last Taken ?Type oxycodone 5 mg tablet 5 mg PO Q6H PRN pain 07/02/24 07/02/24 07/01/24 21:00 History <Victor Hugo Leon PA-C - Last Filed: 07/02/24 16:07> Allergies/adverse reactions: Allergies Allergy/AdvReac Type Severity Reaction Status Date / Time ciprofloxacin Allergy Unknown Rash Verified 07/02/24 16:03 <Victor Hugo Leon PA-C - Last Filed: 07/02/24 16:07> Review of Systems 2 Review of Systems: All systems reviewed & are unremarkable except as noted in HPI and below <Malvin Robert MD - Last Filed: 07/02/24 22:47> Constitutional: Constitutional: Reports no additional constitutional complaints <Malvin Robert MD - Last Filed: 07/02/24 22:47> ENT: Reports system reviewed and no additional complaints, except as documented <Malvin Robert MD - Last Filed: 07/02/24 22:47> Cardiovascular: Cardiovascular: Reports no additional cardiovascular complaints <Malvin Robert MD - Last Filed: 07/02/24 22:47> Respiratory: Respiratory: Reports no additional respiratory complaints < Malvin Robert MD - Last Filed: 07/02/24 22:47> Gastrointestinal: Gastrointestinal: Reports abdominal pain, Denies nausea and Denies vomiting <Malvin Robert MD - Last Filed: 07/02/24 22:47> Genitourinary: Genitourinary: Reports abnormal vaginal bleeding and Reports vaginal discharge <Malvin Robert MD - Last Filed: 07/02/24 22:47> COUNTS INCLUDE 234 BEDS AT THE [facility] Past Medical History Medical History: Medical History Gestational diabetes Factor V Leiden mutation affecting <Victor Hugo Leon PA-C - Last Filed: 07/02/24 16:07> Surgical History Surgical History: Surgical History History of robot-assisted laparoscopic hysterectomy (06/14/24) Robotic assisted total laparoscopic hysterectomy, bilateral salpingectomy, and cystoscopy History of gynecological procedure (03/22/22) [place] gland removal H/O tubal ligation (01/16/06) Delivery by section (07/21/99) primary c/s failure to dilate Delivery by section (01/16/06) repeat c/s History of gynecological procedure (01/23/11) cryo Hx of breast implants, bilateral (08/12/19) H/O abdominoplasty (08/12/19) H/O rhinoplasty (08/12/19) History of hysteroscopy (06/18/21) hysteroscopic D&C , myomectomy / Fibroid History of hysteroscopy suction D&C missed AB <Victor Hugo Leon PA-C - Last Filed: 07/02/24 16:07> Family History Family History: Family History Mother Patient's mother is in good health Father Patient's father is in good health Hypertension Sibling Patient's sister is in good health Patient's brother is in good health <Victor Hugo Leon PA-C - Last Filed: 07/02/24 16:07> Social History Social History: Social History Smoking status: Never smoker Second hand tobacco smoke exposure: No Alcohol intake: current Alcohol use details: social Substance use: never Substance use type: does not use Do You Feel Safe in your Home?: Yes Lack of Transportation: No Lack of Food: Never True Current Housing: I Have Housing Concerned About Future Housing: No Difficulty Paying Gas/Electric Bills: No Difficulty Paying for Meds: No Currently Unemployed: No Education: High School Diploma/GED Difficulty w/ Childcare or Family Care: No Living arrangements: with family Occupation/Education: occupation Gender identity (if verbalized by the patient): Female Sexual Orientation (if Verbalized by the Patient): Straight or Heterosexual Spiritual care concerns: No Agree to blood products: Yes <Victor Hugo Leon PA-C - Last Filed: 07/02/24 16:07> Exam 2 Narrative: GENERAL: Well-appearing, well-nourished, and in no acute distress. HEAD: Normocephalic, atraumatic. ENT: Mucous membranes moist. NECK: Supple. CHEST: Clear to auscultation. No respiratory distress. HEART: Regular rate and rhythm. Normal peripheral pulses. ABDOMEN: Soft, mild left lower quadrant and suprapubic discomfort, nondistended. EXTREMITIES: Normal range of motion. No edema. SKIN: Warm, dry, no rash. NEURO: Alert and oriented x3. PSYCH: Normal mood and affect. <Malvin Robert MD - Last Filed: 07/02/24 22:47> Course Course Emergency Course: Discussed with Dr. Gonsalez. Admit to her service. She will order abx. < Malvin Robert MD - Last Filed: 07/02/24 22:47> Vital Signs Vital signs: Vital Signs Temperature 97.1 F L 07/02/24 14:11 Pulse Rate 85 07/02/24 14:11 Respiratory Rate 18 07/02/24 14:11 Blood Pressure 125/79 07/02/24 14:11 Pulse Oximetry 100 07/02/24 14:11 Temperature 97.1 F L 07/02/24 14:11 Pulse Rate 80 07/02/24 18:40 Respiratory Rate 16 07/02/24 18:40 Blood Pressure 143/90 H 07/02/24 18:40 Pulse Oximetry 100 07/02/24 18:40 <Victor Hugo Leon PA-C - Last Filed: 07/02/24 16:07> Vital Signs Temperature 97.1 F L 07/02/24 14:11 Pulse Rate 85 07/02/24 14:11 Respiratory Rate 18 07/02/24 14:11 Blood Pressure 125/79 07/02/24 14:11 Pulse Oximetry 100 07/02/24 14:11 Temperature 97.1 F L 07/02/24 14:11 Pulse Rate 80 07/02/24 18:40 Respiratory Rate 16 07/02/24 18:40 Blood Pressure 143/90 H 07/02/24 18:40 Pulse Oximetry 100 07/02/24 18:40 <Malvin Robert MD - Last Filed: 07/02/24 22:47> Medical Decision Making Vital Signs Vital Signs: Vital Signs Temperature 97.1 F L 07/02/24 14:11 Pulse Rate 85 07/02/24 14:11 Respiratory Rate 18 07/02/24 14:11 Blood Pressure 125/79 07/02/24 14:11 Pulse Oximetry 100 07/02/24 14:11 Temperature 97.1 F L 07/02/24 14:11 Pulse Rate 80 07/02/24 18:40 Respiratory Rate 16 07/02/24 18:40 Blood Pressure 143/90 H 07/02/24 18:40 Pulse Oximetry 100 07/02/24 18:40 <Victor Hugo Leon PA-C - Last Filed: 07/02/24 16:07> Vital Signs Temperature 97.1 F L 07/02/24 14:11 Pulse Rate 85 07/02/24 14:11 Respiratory Rate 18 07/02/24 14:11 Blood Pressure 125/79 07/02/24 14:11 Pulse Oximetry 100 07/02/24 14:11 Temperature 97.1 F L 07/02/24 14:11 Pulse Rate 80 07/02/24 18:40 Respiratory Rate 16 07/02/24 18:40 Blood Pressure 143/90 H 07/02/24 18:40 Pulse Oximetry 100 07/02/24 18:40 <Malvin Robert MD - Last Filed: 07/02/24 22:47> Lab Data Result diagrams: 07/02/24 16:07 07/02/24 16:07 <Victor Hugo Leon PA-C - Last Filed: 07/02/24 16:07> Labs: Lab Results 07/02/24 07/02/24 07/02/24 Range/Units 16:07 16:07 17:17 WBC 10.6 H (4.5-10.0) K/mm3 RBC 4.25 (4.2-5.4) M/mm3 Hgb 12.9 (12.0-15.0) g/dL Hct 38.0 (37.0-47.0) % MCV 89.4 (80-100) fl MCH 30.4 (26-34) pg MCHC 33.9 (32-36) g/dl RDW 12.4 (11.5-14.5) % Plt Count 449 H (150-375) k/mm3 MPV 9.8 (7.4-10.4) fl Immature Gran % (Auto) 0.5 (0-0.5) % Neut % (Auto) 62.7 (45.5-73.1) % Lymph % (Auto) 29.8 (18.3-44.2) % [place] % (Auto) 5.3 (2.6-8.5) % Eos % (Auto) 1.2 (0-4.4) % Baso % (Auto) 0.5 (0.2-1.2) % Lymph # (Auto) 3.16 (0.9-3.2) K/mm3 [place] # (Auto) 0.6 (0.1-0.6) K/mm3 Eos # (Auto) 0.1 (0-0.3) K/mm3 Baso # (Auto) 0.1 (0.0-0.1) K/mm3 Abs Immat Gran (auto) 0.05 H (0.00-0.031) K/mm3 Absolute Neuts (auto) 6.6 (1.3-6.7) K/mm3 Absolute Nucleated RBC 0.000 (0.0-0.012) K/mm3 Nucleated RBC % 0.0 (0.0-0.2) % Sodium 136 L (137-145) mmol/L Potassium 3.8 (3.4-5.0) mmol/L Chloride 103 (98-107) mmol/L Carbon Dioxide 27 (22-30) mmol/L Anion Gap 6 (4-12) mmol/L BUN 12 (7-17) mg/dL Creatinine 0.60 L (0.7-1.0) mg/dL Estim Creat Clear Calc 90 ml/min Estimated GFR > 60 (59 - ) Glucose 92 (65-110) mg/dL Calcium 9.1 (8.4-10.2) mg/dL Total Bilirubin 0.4 (0.2-1.3) mg/dL AST 21 (14-36) U/L ALT 21 (6-35) U/L Alkaline Phosphatase 88 (38-126) U/L C-Reactive Protein 2.7 H (<1.0) mg/dL Total Protein 8.0 (6.3-8.2) g/dL Albumin 4.0 (3.5-5.1) g/dL Lipase 40 Cancelled (23-300) U/L Urine Color Yellow (Yellow) Urine Appearance Clear (Clear) Urine pH 6.5 (5.0-9.0) Ur Specific [place] 1.002 (1.001-1.035) Urine Protein Negative (Negative) mg/dL Urine Glucose (UA) Negative (Negative) mg/dL Urine Ketones Negative (Negative) mg/dL Ur Blood (Man) Trace (Negative) Urine Nitrate Negative (Negative) Urine Bilirubin Negative (Negative) Urine Urobilinogen 0.2 (<2.0) mg/dL Add Ur Microanalysis Reviewed Leukocyte Esterase Rfl Trace H (Negative) [place]/UL Urine RBC 0-2 (0-2) /hpf Urine WBC 0-5 (0-3) /hpf Ur Squamous Epith Cells None seen (Few) /hpf Urine Bacteria None seen /hpf Urine Casts 0-2 <Victor Hugo Leon PA-C - Last Filed: 07/02/24 16:07> Lab Results 07/02/24 07/02/24 07/02/24 Range/Units 16:07 16:07 17:17 WBC 10.6 H (4.5-10.0) K/mm3 RBC 4.25 (4.2-5.4) M/mm3 Hgb 12.9 (12.0-15.0) g/dL Hct 38.0 (37.0-47.0) % MCV 89.4 (80-100) fl MCH 30.4 (26-34) pg MCHC 33.9 (32-36) g/dl RDW 12.4 (11.5-14.5) % Plt Count 449 H (150-375) k/mm3 MPV 9.8 (7.4-10.4) fl Immature Gran % (Auto) 0.5 (0-0.5) % Neut % (Auto) 62.7 (45.5-73.1) % Lymph % (Auto) 29.8 (18.3-44.2) % [place] % (Auto) 5.3 (2.6-8.5) % Eos % (Auto) 1.2 (0-4.4) % Baso % (Auto) 0.5 (0.2-1.2) % Lymph # (Auto) 3.16 (0.9-3.2) K/mm3 [place] # (Auto) 0.6 (0.1-0.6) K/mm3 Eos # (Auto) 0.1 (0-0.3) K/mm3 Baso # (Auto) 0.1 (0.0-0.1) K/mm3 Abs Immat Gran (auto) 0.05 H (0.00-0.031) K/mm3 Absolute Neuts (auto) 6.6 (1.3-6.7) K/mm3 Absolute Nucleated RBC 0.000 (0.0-0.012) K/mm3 Nucleated RBC % 0.0 (0.0-0.2) % Sodium 136 L (137-145) mmol/L Potassium 3.8 (3.4-5.0) mmol/L Chloride 103 (98-107) mmol/L Carbon Dioxide 27 (22-30) mmol/L Anion Gap 6 (4-12) mmol/L BUN 12 (7-17) mg/dL Creatinine 0.60 L (0.7-1.0) mg/dL Estim Creat Clear Calc 90 ml/min Estimated GFR > 60 (59 - ) Glucose 92 (65-110) mg/dL Calcium 9.1 (8.4-10.2) mg/dL Total Bilirubin 0.4 (0.2-1.3) mg/dL AST 21 (14-36) U/L ALT 21 (6-35) U/L Alkaline Phosphatase 88 (38-126) U/L C-Reactive Protein 2.7 H (<1.0) mg/dL Total Protein 8.0 (6.3-8.2) g/dL Albumin 4.0 (3.5-5.1) g/dL Lipase 40 Cancelled (23-300) U/L Urine Color Yellow (Yellow) Urine Appearance Clear (Clear) Urine pH 6.5 (5.0-9.0) Ur Specific [place] 1.002 (1.001-1.035) Urine Protein Negative (Negative) mg/dL Urine Glucose (UA) Negative (Negative) mg/dL Urine Ketones Negative (Negative) mg/dL Ur Blood (Man) Trace (Negative) Urine Nitrate Negative (Negative) Urine Bilirubin Negative (Negative) Urine Urobilinogen 0.2 (<2.0) mg/dL Add Ur Microanalysis Reviewed Leukocyte Esterase Rfl Trace H (Negative) [place]/UL Urine RBC 0-2 (0-2) /hpf Urine WBC 0-5 (0-3) /hpf Ur Squamous Epith Cells None seen (Few) /hpf Urine Bacteria None seen /hpf Urine Casts 0-2 <Malvin Robert MD - Last Filed: 07/02/24 22:47> Imaging Data Radiologist's impression: ITS Impressions Abdomen/Pelvis CT 07/02/24 17:12 IMPRESSION: 1. 4.6 x 2.3 x 2.1 cm rim-enhancing fluid collection in the hysterectomy bed, likely a subacute hematoma. <Malvin Robert MD - Last Filed: 07/02/24 22:47> Discharge Plan Discharge Clinical Impression: Postoperative complication <Victor Hugo Leon PA-C - Last Filed: 07/02/24 16:07> Patient Disposition: Still a Patient <Victor Hugo Leon PA-C - Last Filed: 07/02/24 16:07> Condition: Stable <Victor Hugo Leon PA-C - Last Filed: 07/02/24 16:07>
[2024-07-02 16:00] VITALS: BP 121/82; PULSE 74; RESP 18; O2SAT 98
[2024-07-02 16:14] LABS: Basophils Absolute Auto 0.1 K/mm3 (0.0-0.1); Basophils Percent Auto 0.5 % (0.2-1.2); Eosinophils Absolute Auto 0.1 K/mm3 (0-0.3); Eosinophils Percent Auto 1.2 % (0-4.4); Hemoglobin 12.9 g/dL (12.0-15.0); Immature Granulocyte Absolute 0.05 K/mm3 (0.00-0.031); Immature Granulocyte Percent A 0.5 % (0-0.5); Lymphocytes Absolute Auto 3.16 K/mm3 (0.9-3.2); Lymphocytes Percent Auto 29.8 % (18.3-44.2); Mean Corpuscular HGB Conc 33.9 g/dl (32-36); Mean Corpuscular Hemoglobin 30.4 pg (26-34); Mean Corpuscular Volume 89.4 fl (80-100); Mean Platelet Volume 9.8 fl (7.4-10.4); Monocytes Absolute Auto 0.6 K/mm3 (0.1-0.6); Monocytes Percent Auto 5.3 % (2.6-8.5); Neutrophils Absolute Auto 6.6 K/mm3 (1.3-6.7); Neutrophils Percent Auto 62.7 % (45.5-73.1); Platelet Count Result 449 k/mm3 (150-375); Red Blood Count 4.25 M/mm3 (4.2-5.4); Red Cell Distribution Width 12.4 % (11.5-14.5); White Blood Count 10.6 K/mm3 (4.5-10.0)
[2024-07-02 16:28] LABS: Alanine Aminotransferase 21 U/L (6-35); Alkaline Phosphatase 88 U/L (38-126); Anion Gap 6 mmol/L (4-12); Aspartate Amino Transferase 21 U/L (14-36); Bilirubin,Total 0.4 mg/dL (0.2-1.3); Blood Urea Nitrogen 12 mg/dL (7-17); CRP 2.7 mg/dL (<1.0); Calcium 9.1 mg/dL (8.4-10.2); Carbon Dioxide 27 mmol/L (22-30); Chloride 103 mmol/L (98-107); Estimated CRCL calculation 90 ml/min; Estimated Glomerular Filt Rate > 60; Glucose 92 mg/dL (65-110); Lipase 40 U/L (23-300); Potassium 3.8 mmol/L (3.4-5.0); Sodium 136 mmol/L (137-145)
[2024-07-02 17:37] LABS: Add Urine Microscopic? YES; Appearance Urine Clear (Clear); Bacteria Urine None Seen /hpf; Bilirubin Urine Negative (Negative); Blood Urine Trace (Negative); Color Urine Yellow (Yellow); Glucose Urine UA Negative (Negative); Ketones Urine Negative (Negative); Leukocyte Esterase Ur Trace LEU/UL (Negative); Need Manual Microscopic Reviewed; Nitrate Urine Negative (Negative); Non Pathogenic Casts 0-2; Protein Urine Negative (Negative); RBC Urine 0-2 /hpf (0-2); Specific Grav Ur 1.002 (1.001-1.035); Squamous Epithelial Cell Urine None Seen /hpf (Few); Urobilinogen Urine 0.2 mg/dL (<2.0); WBC Urine 0-5 /hpf (0-3); pH Urine 6.5 (5.0-9.0)
[2024-07-02 18:40] VITALS: BP 143/90; PULSE 80; RESP 16; O2SAT 100
[2024-07-02] MEDS: cefTRIAXone 2 GM/NS 100 ML 2 GM/100 ML BAG IVPB (18:40)
[2024-07-02 19:36] VITALS: BMI 29.9
--- NOTE | 2024-07-02 19:38 | ADMGEN ---
This patient, Rebekah Rae, was admitted to 3 [facility] Surg Room 320-01. Patient/family oriented to hospital policies and general routines including ID bracelet, bed and alarms, visiting hours, pain management, procedures, bathroom and other care routines, personal items, smoking policy, room service/diet, and visiting hours. Information on how to activate the Rapid Response Team has been discussed. Patient/Family are encouraged to report perceived risks to care and to ask questions if they do not understand what they are told or what they should do.
[2024-07-02 20:45] VITALS: BP 135/88; PULSE 75; RESP 20; TEMP 36.9; O2SAT 100
[2024-07-02] MEDS: oxyCODONE HCL (*CRX) 5 MG TAB IR PO (23:31)
[2024-07-02] MEDS: metroNIDAZOLE 500 MG/ISO 100ML 500 MG/100 ML BAG 100 MG IVPB (23:32)
[2024-07-03 04:40] VITALS: BP 90/60; PULSE 61; RESP 20; TEMP 35.8; O2SAT 99
[2024-07-03] MEDS: metroNIDAZOLE 500 MG/ISO 100ML 500 MG/100 ML BAG 100 MG IVPB ×3 (04:53→21:05)
[2024-07-03] MEDS: LACTATED RINGERS 500 ML 999 ML IV CONT (05:49)
[2024-07-03 06:26] LABS: Basophils Absolute Auto 0.1 K/mm3 (0.0-0.1); Basophils Percent Auto 0.7 % (0.2-1.2); Eosinophils Absolute Auto 0.2 K/mm3 (0-0.3); Hematocrit 35.6 % (37.0-47.0); Hemoglobin 11.7 g/dL (12.0-15.0); Immature Granulocyte Absolute 0.03 K/mm3 (0.00-0.031); Immature Granulocyte Percent A 0.4 % (0-0.5); Lymphocytes Absolute Auto 2.91 K/mm3 (0.9-3.2); Lymphocytes Percent Auto 35.7 % (18.3-44.2); Mean Corpuscular HGB Conc 32.9 g/dl (32-36); Mean Corpuscular Hemoglobin 29.7 pg (26-34); Mean Corpuscular Volume 90.4 fl (80-100); Monocytes Absolute Auto 0.6 K/mm3 (0.1-0.6); Monocytes Percent Auto 7.7 % (2.6-8.5); Neutrophils Absolute Auto 4.4 K/mm3 (1.3-6.7); Neutrophils Percent Auto 53.5 % (45.5-73.1); Platelet Count Result 391 k/mm3 (150-375); Red Blood Count 3.94 M/mm3 (4.2-5.4); Red Cell Distribution Width 12.4 % (11.5-14.5); White Blood Count 8.1 K/mm3 (4.5-10.0)
[2024-07-03 06:37] LABS: Alanine Aminotransferase 18 U/L (6-35); Albumin Level 3.4 g/dL (3.5-5.1); Alkaline Phosphatase 85 U/L (38-126); Anion Gap 4 mmol/L (4-12); Aspartate Amino Transferase 17 U/L (14-36); Bilirubin,Total 0.2 mg/dL (0.2-1.3); Blood Urea Nitrogen 11 mg/dL (7-17); Calcium 8.4 mg/dL (8.4-10.2); Carbon Dioxide 25 mmol/L (22-30); Chloride 107 mmol/L (98-107); Estimated CRCL calculation 106 ml/min; Estimated Glomerular Filt Rate > 60; Glucose 96 mg/dL (65-110); Sodium 136 mmol/L (137-145)
--- NOTE | 2024-07-03 07:49 | PM.IMHP ---
H&P: HPI History of Present Illness Date/Time: 07/03/24 07:49 Chief Complaint: vaginal bleeding Narrative: Rebekah is a 44yo [id number] who presented to the ER with increase in vaginal bleeding. She is s/p RA-TLH/BS/cysto on 06/14/24. She was seen in office recently and had endorsed watery discharge with a small amount of blood mixed in. She denied any odor. She reports her pain was very sharp yesterday (new symptom) and that's what worried her and made her come to the ER. The pain meds in the ER helped. She does endorse some constipation/hard stools. She is tolerating regular diet, slightly decreased appetite. She denies any fever, chills. No issues with her incision. At her post op visit 06/29/24, her significant other reported that she is getting stir crazy and had been quite active (noticed discharge after being active). CT scan in the ER shows a sub-acute pelvic hematoma, [id number]. No major issues overnight. Her pain is doing better. She reports her discharge has decreased significantly; has had the same pad on all night and it's dry (has gotten up to pee a couple times). Review of Systems Constitutional: Constitutional: Denies chills, Denies fever(s) and Denies headache(s) Eyes: Eyes: Denies change in vision ENT: Denies dizziness and Denies headache(s) Cardiovascular: Cardiovascular: Denies chest pain, Denies palpitations and Denies dyspnea Respiratory: Respiratory: Denies cough and Denies dyspnea Gastrointestinal: Gastrointestinal: Denies abdominal pain, Reports constipation, Denies nausea and Denies vomiting Genitourinary: Genitourinary: Reports abnormal vaginal bleeding, Reports pelvic pain, Reports vaginal discharge, Denies vaginal odor and Denies vaginal pruritus Neurologic: Denies dizziness and Denies headache(s) Endocrine: Endocrine: Denies palpitations PMFSH Past Medical History Medical History Gestational diabetes Factor V Leiden mutation affecting Surgical History Surgical History History of robot-assisted laparoscopic hysterectomy (06/14/24) Robotic assisted total laparoscopic hysterectomy, bilateral salpingectomy, and cystoscopy History of gynecological procedure (03/22/22) [place]'s gland removal H/O tubal ligation (01/16/06) Delivery by section (07/21/99) primary c/s failure to dilate Delivery by section (01/16/06) repeat c/s History of gynecological procedure (01/23/11) cryo Hx of breast implants, bilateral (08/12/19) H/O abdominoplasty (08/12/19) H/O rhinoplasty (08/12/19) History of hysteroscopy (06/18/21) hysteroscopic D&C , myomectomy / Fibroid History of hysteroscopy suction D&C missed AB Family History Family History Mother Patient's mother is in good health Father Patient's father is in good health Hypertension Sibling Patient's sister is in good health Patient's brother is in good health Social History Social History Smoking status: Never smoker Second hand tobacco smoke exposure: No Alcohol intake: current Alcohol use details: social Substance use: never Substance use type: does not use Do You Feel Safe in your Home?: Yes Lack of Transportation: No Lack of Food: Never True Current Housing: I Have Housing Concerned About Future Housing: No Difficulty Paying Gas/Electric Bills: No Difficulty Paying for Meds: No Currently Unemployed: No Education: High School Diploma/GED Difficulty w/ Childcare or Family Care: No Living arrangements: with family Occupation/Education: occupation Gender identity (if verbalized by the patient): Female Sexual Orientation (if Verbalized by the Patient): Straight or Heterosexual Spiritual care concerns: No Agree to blood products: Yes Meds Home Medications and Allergies Home Medications ?Medication ?Instructions ?Recorded ?Confirmed ?Type acetaminophen 500 mg tablet 1,000 mg (2 x 500 mg) PO Q6HR #90 06/14/24 07/02/24 Rx tabs docusate sodium 100 mg capsule 100 mg PO BID #90 caps 06/14/24 07/02/24 Rx ibuprofen 600 mg tablet 600 mg PO Q6HR #40 tabs 06/14/24 07/02/24 Rx amoxicillin 875 mg-potassium 1 tablet PO BID 14 days #28 tabs 06/29/24 07/02/24 Rx clavulanate 125 mg tablet fluconazole 150 mg tablet 150 mg PO Q72H #2 tabs 06/29/24 07/02/24 Rx oxycodone 5 mg tablet 5 mg PO Q6H PRN pain 07/02/24 07/02/24 History Allergies Allergy/AdvReac Type Severity Reaction Status Date / Time ciprofloxacin Allergy Unknown Rash Verified 07/02/24 16:03 Vital Signs Vital Signs - 24 hr 07/02/24 14:11 07/02/24 16:00 07/02/24 18:40 Temperature 97.1 F L Pulse Rate 85 74 80 Respiratory Rate 18 18 16 Blood Pressure 125/79 121/82 143/90 H Pulse Oximetry 100 98 100 Oxygen Delivery 07/02/24 20:00 07/02/24 20:45 07/03/24 04:40 Temperature 98.4 F 96.5 F L Pulse Rate 75 61 Respiratory Rate 20 20 Blood Pressure 135/88 90/60 L Pulse Oximetry 100 99 Oxygen Delivery Room Air Exam Const: General: cooperative, healthy appearing, comfortable and no acute distress Orientation/consciousness: oriented to person, oriented to place and oriented to time Resp: Effort & Inspection: normal respiratory effort Auscultation: clear to auscultation bilaterally Cardio: Rate: regular rate GI: Inspection: incision (healed) GI Palp: Yes Soft to palpation and Yes Tenderness to palpation present (GI) (appropriately) Auscultation: normal bowel sounds : Other: no blood on pad Neuro: General: oriented to person, oriented to place and oriented to time H&P: Results Labs Labs: Short CBC 07/02/24 07/03/24 Range/Units 16:07 06:01 WBC 10.6 H 8.1 (4.5-10.0) K/mm3 Hgb 12.9 11.7 L (12.0-15.0) g/dL Hct 38.0 35.6 L (37.0-47.0) % Plt Count 449 H 391 H (150-375) k/mm3 BMP 07/02/24 07/03/24 16:07 06:01 Sodium 136 L 136 L Potassium 3.8 4.0 Chloride 103 107 Carbon Dioxide 27 25 BUN 12 11 Creatinine 0.60 L 0.50 L Glucose 92 96 Calcium 9.1 8.4 Liver Function 07/02/24 07/03/24 Range/Units 16:07 06:01 Total Bilirubin 0.4 0.2 (0.2-1.3) mg/dL AST 21 17 (14-36) U/L ALT 21 18 (6-35) U/L Alkaline Phosphatase 88 85 (38-126) U/L Albumin 4.0 3.4 L (3.5-5.1) g/dL Urine 07/02/24 Range/Units 17:17 Urine Color Yellow (Yellow) Urine Appearance Clear (Clear) Urine pH 6.5 (5.0-9.0) Ur Specific [place] 1.002 (1.001-1.035) Urine Protein Negative (Negative) mg/dL Urine Glucose (UA) Negative (Negative) mg/dL Assessment and Plan Assessment and plan (1) Pelvic haematoma: Status: Acute (2) S/P laparoscopic hysterectomy: Code(s): Z90.710 - Acquired absence of both cervix and uterus Status: Acute Plan - Admitted over night for IV antibiotics - Small hematoma on the cuff, but draining vaginally - Labs/vitals stable this AM - Continue ceftriaxone 2g IV q24h + metronidazole 500mg q8h; plan for 48 hours of IV antibiotics - Regular diet, IV fluids until adequate PO intake - PO pain meds, stool softeners, nausea meds PRN - Plan for possible discharge home 07/04 or 07/05 on PO antibiotics
[2024-07-03] MEDS: DOCUSATE SODIUM 100 MG CAPSULE PO ×2 (10:25→21:04)
[2024-07-03 14:00] VITALS: BP 119/79; PULSE 72; RESP 18; TEMP 36.5; O2SAT 100
--- NOTE | 2024-07-03 14:39 | PC.NURSE ---
On 07/03/24, the AEROGRAPHER, [Estella Weiss ], provided care and completed [facility] documentation on this patient. I have reviewed the AEROGRAPHER's documentation and agree with the findings.
[2024-07-03] MEDS: cefTRIAXone 2 GM/NS 100 ML 2 GM/100 ML BAG IVPB (17:49)
[2024-07-03 22:00] VITALS: BP 135/81; PULSE 78; RESP 20; TEMP 36.2; O2SAT 100
[2024-07-04] MEDS: metroNIDAZOLE 500 MG/ISO 100ML 500 MG/100 ML BAG 100 MG IVPB (04:15)
[2024-07-04 06:00] VITALS: BP 113/71; PULSE 65; RESP 20; TEMP 36.9; O2SAT 98
[2024-07-04 06:13] LABS: Hematocrit 35.6 % (37.0-47.0); Hemoglobin 11.7 g/dL (12.0-15.0); Mean Corpuscular HGB Conc 32.9 g/dl (32-36); Mean Corpuscular Hemoglobin 29.8 pg (26-34); Mean Corpuscular Volume 90.6 fl (80-100); Mean Platelet Volume 9.9 fl (7.4-10.4); Platelet Count Result 394 k/mm3 (150-375); Red Blood Count 3.93 M/mm3 (4.2-5.4); Red Cell Distribution Width 12.4 % (11.5-14.5); White Blood Count 8.5 K/mm3 (4.5-10.0)
[2024-07-04 06:33] LABS: Alanine Aminotransferase 28 U/L (6-35); Albumin Level 3.5 g/dL (3.5-5.1); Alkaline Phosphatase 111 U/L (38-126); Anion Gap 3 mmol/L (4-12); Aspartate Amino Transferase 26 U/L (14-36); Bilirubin,Total 0.2 mg/dL (0.2-1.3); Blood Urea Nitrogen 13 mg/dL (7-17); Calcium 8.5 mg/dL (8.4-10.2); Carbon Dioxide 23 mmol/L (22-30); Chloride 109 mmol/L (98-107); Estimated CRCL calculation 90 ml/min; Estimated Glomerular Filt Rate > 60; Glucose 102 mg/dL (65-110); Potassium 4.1 mmol/L (3.4-5.0); Sodium 135 mmol/L (137-145)
[2024-07-04] MEDS: DOCUSATE SODIUM 100 MG CAPSULE PO (08:32)
[2024-07-04 08:57] VITALS: O2SAT 99
--- NOTE | 2024-07-04 09:14 | PM.GYNPNOP ---
PROCESS CONTROLS TECHNICIAN - A/P Assessment and plan (1) Pelvic haematoma: Status: Acute (2) S/P laparoscopic hysterectomy: Code(s): Z90.710 - Acquired absence of both cervix and uterus Status: Acute Plan - Admitted for IV antibiotics, has had 48 hours - Small hematoma on the cuff, but draining vaginally - Labs/vitals stable --> WBC down trended, afebrile - S/p ceftriaxone 2g IV q24h (s/p 2 doses) + metronidazole 500mg q8h (s/p 5 doses)-- will transition to PO antibiotics (metronidazole 500mg q12h PO + bactrim DS q12h PO) - Regular diet - PO pain meds, stool softeners, nausea meds PRN - Plan for discharge home this afternoon Time Spent With Patient Time: Total time spent is greater than 50% in coordination of care (as documented) at patient's floor/unit and/or counseling patient: Time with patient: less than 15 minutes PROCESS CONTROLS TECHNICIAN- PN:Subj Post-Op Subjective Date/time seen: 07/04/24 09:14 Interval history: HD#3 Rebekah reports no major issues overnight. She reports her pelvic pain has mostly resolved; occasional mild pains. She has had a very small amount of vaginal bleeding; but this pad has been on since last night. She denies abnormal discharge/odor. She had a bowel movement, urinating without issue. She has been tolerating regular diet. She has been ambulating without issue. Review of Systems Constitutional: Constitutional: Denies chills, Denies fever(s) and Denies headache(s) Eyes: Eyes: Denies change in vision ENT: Denies dizziness and Denies headache(s) Cardiovascular: Cardiovascular: Denies chest pain, Denies palpitations and Denies dyspnea Respiratory: Respiratory: Denies cough and Denies dyspnea Gastrointestinal: Gastrointestinal: Denies abdominal pain, Denies change in bowel habits, Denies constipation, Denies nausea and Denies vomiting Genitourinary: Genitourinary: Denies abnormal vaginal bleeding, Denies pelvic pain, Denies vaginal discharge, Denies vaginal odor and Denies vaginal pruritus Neurologic: Denies dizziness and Denies headache(s) Endocrine: Endocrine: Denies palpitations Exam Const: General: cooperative, healthy appearing, comfortable and no acute distress Orientation/consciousness: oriented to person, oriented to place and oriented to time Resp: Effort & Inspection: normal respiratory effort Auscultation: clear to auscultation bilaterally Cardio: Rate: regular rate GI: Inspection: incision (healed) Auscultation: normal bowel sounds : Other: ~3cc of brown/red (not bright red) blood on pad Neuro: General: oriented to person, oriented to place and oriented to time PROCESS CONTROLS TECHNICIAN - PN: Obj Data Vital Signs Vital Signs: Vital Signs - 24 hr 07/03/24 10:20 07/03/24 14:00 07/03/24 20:00 Temperature 97.7 F Pulse Rate 72 Respiratory Rate 18 Blood Pressure 119/79 Pulse Oximetry 100 Oxygen Delivery Room Air Room Air Fraction of Inspired Oxygen 07/03/24 22:00 07/04/24 06:00 07/04/24 08:57 Temperature 97.1 F L 98.5 F Pulse Rate 78 65 Respiratory Rate 20 20 Blood Pressure 135/81 113/71 Pulse Oximetry 100 98 99 Oxygen Delivery Room Air Fraction of Inspired Oxygen 21 Intake/Output Intake/Output: Intake & Output 07/01/24 07/02/24 07/03/24 07/04/24 23:59 23:59 23:59 23:59 Intake Total 100 2370 600 Output Total 1 Balance 100 2370 599 Meds/Results Medications: Active Medications Generic Name Dose Route Start Last Admin Trade Name Freq PRN Reason Stop Dose Admin Acetaminophen 1,000 mg 07/02/24 18:08 Acetaminophen 500 Mg Tablet PO Q8H PRN fever or mild pain 1-3 Diphenhydramine HCl 25 mg 07/02/24 18:02 Diphenhydramine Hcl Cap 25 Mg Capsule PO Q6H PRN Itching or for sleep Docusate Sodium 100 mg 07/03/24 09:00 07/04/24 08:32 Docusate Sodium 100 Mg Capsule PO 100 mg Q12HR RAHUL Administration Metronidazole 500 mg in 100 mls @ 100 mls/hr 07/02/24 20:00 07/04/24 05:15 Flagyl 500 Mg/Iso Soln 100 Ml IVPB Infused Q8H RAHUL Infusion Ceftriaxone Sodium 2 gm in 100 mls @ 200 mls/hr 07/02/24 18:00 07/03/24 18:19 Rocephin 2 Gm/Ns 100 Ml IVPB Infused Q24H RAHUL Infusion Ibuprofen 800 mg 07/02/24 18:02 Ibuprofen 400 Mg Tablet PO Q8H PRN cramping Ondansetron HCl 4 mg 07/02/24 18:02 Ondansetron Inj 4 Mg/2 Ml Vial IV PUSH Q4H PRN nausea Oxycodone HCl 5 mg 07/02/24 18:02 07/02/24 23:31 Oxycodone Hcl (*Crx) 5 Mg Tab Ir PO 5 mg Q4H PRN Administration Pain Rated 7-10 Radiology Results: ITS Impressions Abdomen/Pelvis CT 07/02/24 17:12 IMPRESSION: 1. 4.6 x 2.3 x 2.1 cm rim-enhancing fluid collection in the hysterectomy bed, likely a subacute hematoma. Labs 07/04/24 06:04 07/04/24 06:04 Labs: Laboratory Results - last 24 hr 07/04/24 06:04 WBC 8.5 RBC 3.93 L Hgb 11.7 L Hct 35.6 L MCV 90.6 MCH 29.8 MCHC 32.9 RDW 12.4 Plt Count 394 H MPV 9.9 Sodium 135 L Potassium 4.1 Chloride 109 H Carbon Dioxide 23 Anion Gap 3 L BUN 13 Creatinine 0.60 L Estim Creat Clear Calc 90 Estimated GFR > 60 Glucose 102 Calcium 8.5 Total Bilirubin 0.2 AST 26 ALT 28 Alkaline Phosphatase 111 Total Protein 7.0 Albumin 3.5
[2024-07-04] MEDS: SULFAMETHOXAZOLE/TRIMETHOPRIM 800/160 MG DS TABLET 1 TAB PO (11:57)
[2024-07-04] MEDS: metroNIDAZOLE 500 MG TABLET PO (11:57)
--- OUTSIDE RECORDS SUMMARY | 2024-07-06 04:51 | XMS_ITS | Encounter Summary ---
Author Organization [facility] Address [address] [place] [address] Care Team Providers Care Family Counselor Name Role Phone Dudley Anne MD Primary Care Provider [phone] Josias Pedersen MD Unavailable [phone] Reason for Referral * Diagnostic Imaging (Routine) - Closed Specialty Diagnoses / Procedures Referred By Contac t Referred To Contact Diagnoses Screening mammogram, encounter for Procedures Screening Mammogram Bilateral W Kiran W Implants Screening Mammogram, [address] [address] Referral ID Status Reason Start Date Expiration Date Visits Re quested Visits Authorized [id number] Closed 05/23/2023 06/21/2024 1 1 DRESSER * Diagnostic Imaging (Routine) - Closed Specialty Diagnoses / Procedures Referred By Contac t Referred To Contact Diagnoses Screening mammogram, encounter for Procedures Screening Mammogram Bilateral W Kiran W Implants Screening Mammogram, [address] [address] Referral ID Status Reason Start Date Expiration Date Visits Re quested Visits Authorized [id number] Closed 05/23/2023 06/21/2024 1 1 Reason for Visit * Diagnostic Imaging (Routine) - Closed Specialty Diagnoses / Procedures Referred By Contac t Referred To Contact Diagnoses Screening mammogram, encounter for Procedures Screening Mammogram Bilateral W Kiran W Implants Screening Mammogram, [address] [address] Referral ID Status Reason Start Date Expiration Date Visits Re quested Visits Authorized [id number] Closed 05/23/2023 06/21/2024 1 1 Encounter Details Date Type Department Care Team (Latest Contact Info) Description 08/04/2023 1:47 PM FUR DRESSER - 08/04/2023 11:59 PM FUR DRESSER Hospital Encounter [facility] [address] [place] [address] Screening mammogram, encounter for Discharge Disposition: Discharge to home or self care Social History Tobacco Use Types Packs/Day Years Used Date Smoking Tobacco: Never Smokeless Tobacco: Never Alcohol Use Standard Drinks/Week Comments Yes 4 (1 standard drink = 0.6 oz pur e alcohol) Comments No Sex and Gender Information Value Date Recorded Sex Assigned at Not on file Legal Sex Female 1:29 PM CDT Gender Identity Not on file Sexual Orientation Not on file documented as of this encounter Medications at Time of Discharge CALCIUM ORALIndications:O TC Take 1 tablet by mouth every morning cefuroxime (CEFTIN) 250 mg tablet 08/04/2019 oxyCODONE-acetami nophen (PERCOCET) 5-325 mg per tabletIndications :Pain Take 1 tablet by mouth every 6 (six) hours as needed for pain 30 tablet 08/13/2019 vitamin b complex tabletIndications :Vitamin Deficiency Prevention Take 2 tablets by mouth every morning documented as of this encounter Discharge Disposition Disposition Code Departure Means Destination Discharge to home or self care documented in this encounter Plan of Treatment Not on file documented as of this encounter Procedures Procedure Name Priority Date/Time Associated Diagnosis Comments SCREENING MAMMOGRAM BILATERAL W KIRAN W IMPLANTS Schedule Routine, Read Routine (OP Routine) 08/04/2023 1:57 PM FUR DRESSER Screening mammogram, encounter for documented in this encounter Results * Screening Mammogram Bilateral W Kiran W Implants (08/04/2023 1:57 PM FUR DRESSER) Anatomical Region Laterality Modality Breast Bilateral Mammography Impressions 08/04/2023 3:12 PM FUR DRESSER BI-RADS?? ATLAS category (overall): 2 - Benign There is no mammographic evidence of malignancy. A 1 year screening mammogram is recommended. The patient has been or will be contacted. We recommend annual screening mammography for women at average risk of breast cancer beginning at age 40, based on guidelines of the [employer] [employer] (ACR Practice Parameter for the Performance of Screening and Diagnostic Mammography) and [place]. For women with and elevated risk of breast cancer, please refer to the ACR Practice Parameter for specific screening recommendations. The patient will be entered into a reminder system with a target due date of 1 year for her next screening exam. Narrative 08/04/2023 3:12 PM FUR DRESSER Screening Mammogram Bilateral W Kiran W Implants: 08/04/23 The study was acquired using full field digital technology and interpreted from soft copy. 2D digital mammographic views, as well as 3D digital tomosynthesis were performed in the CC and MLO projections. CLINICAL: ??Screening mammogram, encounter for. ??No relevant medical history has been documented for this patient. ??No known family history of breast cancer. COMPARISONS: 11/07/2020 Screening Mammogram Bilateral W Kiran 02/05/2019 Screening Mammogram Bilateral W Kiran BREAST TISSUE: The breasts are extremely dense, which lowers the sensitivity of mammography. FINDINGS: There are bilateral subpectoral silicone breast implants. The presence of implants limits the sensitivity of mammography. No suspicious masses, suspicious calcifications, or other suspicious findings are seen within either breast. There has been no suspicious change. us Self Screening Mammogram IMG MAMMO PROCEDURES Fi nal Result documented in this encounter Visit Diagnoses Diagnosis Screening mammogram, encounter for documented in this encounter Care Teams Family Counselor Relationship Specialty Start Date End Date Dudley Anne MD [address] [place] [address] PCP - General 02/02/19 [place] [address] [place] [address] Surgeon Plastic Surgery 08/13/19 documented as of this encounter
--- OUTSIDE RECORDS SUMMARY | 2024-07-06 04:51 | XMS_ITS | Referral Summary ---
Author Organization [facility] Address [address] [address] Care Team Providers Care Safety Deposit Clerk Name Role Phone Dudley nAne MD Primary Care Provider [phone] Josias Pedersen MD Unavailable [phone] Encounters Date Type Department Care Team Description 04/20/2024 10:45 AM CDT Office Visit [facility] Dermatology [address] [place] [address] [address] [place] [address] Hardy Tompkins MD PhD Melasma (Primary Dx) from Last 3 Months Allergies Active Allergy Reactions Criticality Noted Date Comments Ciprofloxacin Rash Medium 07/27/2019 Medications CALCIUM ORALIndications :OTC Take 1 tablet by mouth every morning Active vitamin b complex tabletIndicatio ns:Vitamin Deficiency Prevention Take 2 tablets by mouth every morning Active cefuroxime (CEFTIN) 250 mg tablet 08/04/2019 Active oxyCODONE-aceta minophen (PERCOCET) 5-325 mg per tabletIndicatio ns:Pain Take 1 tablet by mouth every 6 (six) hours as needed for pain 30 tablet 08/13/2019 Active diazePAM (VALIUM) 5 mg tablet Take 1 tablet (5 mg total) by mouth every 6 (six) hours as needed for muscle spasms for up to 7 days 08/13/2019 Active Active Problems No known active problems Social History Tobacco Use Types Packs/Day Years Used Date Smoking Tobacco: Never Smokeless Tobacco: Never Alcohol Use Standard Drinks/Week Comments Yes 4 (1 standard drink = 0.6 oz pur e alcohol) Comments No Sex and Gender Information Value Date Recorded Sex Assigned at Not on file Legal Sex Female 1:29 PM CDT Gender Identity Not on file Sexual Orientation Not on file Last Filed Vital Signs Vital Sign Reading Time Taken Comments Blood Pressure 131/96 08/13/2019 4:05 AM EARLY BREASTFEEDING CARE SPECIALIST Pulse 90 08/13/2019 4:05 AM EARLY BREASTFEEDING CARE SPECIALIST Temperature 37.1 ??C (98.8 ??F) 08/13/2019 4:05 AM CS T Respiratory Rate 18 08/13/2019 4:05 AM EARLY BREASTFEEDING CARE SPECIALIST Oxygen Saturation 97% 08/13/2019 4:05 AM EARLY BREASTFEEDING CARE SPECIALIST Inhaled Oxygen Concentration - - Weight 68 kg (150 lb) 08/12/2019 10:36 AM EARLY BREASTFEEDING CARE SPECIALIST Height 154.9 cm (5' 1 ) 08/12/2019 10:36 AM EARLY BREASTFEEDING CARE SPECIALIST Body Mass Index 28.34 08/12/2019 10:36 AM EARLY BREASTFEEDING CARE SPECIALIST Plan of Treatment Not on file Medical Devices Implanted Type [facility] Director Device Identifier Shelf Expiration Date Model / Serial / Lot [employer] Ssf-520 Natrelle Inspira Smooth Shell Surface Soft Touch Implant 520cc Latex Free - [id number] - [id number] Implanted:Qty : 1 on 08/12/2019 by Josias Pedersen MD at [facility] Breast Right: Breast [employer] [id number] 01/18/2024 SSF-520 / [id number] / [id number] Description:*NO CHARGE IMPLA NT PROVIDED BY THE SURGEON HAYLEY* [employer] Ssf-485 Natrelle Inspira Smooth Shell Surface Soft Touch Implant 485cc Latex Free - [id number] - [id number] Implanted:Qty : 1 on 08/12/2019 by Josias Pedersen MD at [facility] Breast Left: Breast [employer] [id number] 09/22/2023 SSF-485 / [id number] / [id number] Description:*NO CHARGE IMPLA NT PROVIDED BY THE SURGEON KV* Procedures Procedure Name Priority Date/Time Associated Diagnosis Comments SCREENING MAMMOGRAM BILATERAL W KIRAN W IMPLANTS Schedule Routine, Read Routine (OP Routine) 08/04/2023 1:57 PM EARLY BREASTFEEDING CARE SPECIALIST Screening mammogram, encounter for from Last 3 Months or Most Recently Relevant to Health Maintenance Results * Screening Mammogram Bilateral W Kiran W Implants (08/04/2023 1:57 PM EARLY BREASTFEEDING CARE SPECIALIST) Anatomical Region Laterality Modality Breast Bilateral Mammography Impressions 08/04/2023 3:12 PM EARLY BREASTFEEDING CARE SPECIALIST BI-RADS?? ATLAS category (overall): 2 - Benign There is no mammographic evidence of malignancy. A 1 year screening mammogram is recommended. The patient has been or will be contacted. We recommend annual screening mammography for women at average risk of breast cancer beginning at age 40, based on guidelines of the [employer] (ACR Practice Parameter for the Performance of Screening and Diagnostic Mammography) and [employer]. For women with and elevated risk of breast cancer, please refer to the ACR Practice Parameter for specific screening recommendations. The patient will be entered into a reminder system with a target due date of 1 year for her next screening exam. Narrative 08/04/2023 3:12 PM EARLY BREASTFEEDING CARE SPECIALIST Screening Mammogram Bilateral W Kiran W Implants: [...] Mammogram IMG MAMMO PROCEDURES Fi nal Result from Last 3 Months or Most Recently Relevant to Health Maintenance Insurance [employer] [facility] Advance Directives For more information, please contact: [phone] * Full Code (Latest Code Status on File) Date Activated Date Inactivated Comments 08/12/2019 4:59 PM 08/13/2019 6:23 PM Care Teams Safety Deposit Clerk Relationship Specialty Start Date End Date Dudley Anne MD [address] [place] [address] PCP - General 02/02/19 [place] [address] [place] [address] Surgeon Plastic Surgery 08/13/19
--- OUTSIDE RECORDS SUMMARY | 2024-07-06 04:51 | XMS_ITS | Encounter Summary ---
Author Organization [facility] Healthcare Address [address] [place] [address] Care Team Providers Care Tipple Mechanic Name Role Phone Dudley Anne MD Primary Care Provider [phone] Josias Pedersen MD Unavailable [phone] Encounter Details Date Type Department Care Team (Late st Contact Info) Description 11/07/2020 12:49 PM CDT Hospital Encounter [facility] Dudley Anne MD [address] [place] [address] Allen Drake MD [address] [facility] [address] [place] [address] Social History Tobacco Use Types Packs/Day Years [...] every morning documented as of this encounter Plan of Treatment Not on file documented as of this encounter Procedures Procedure Name Priority Date/Time Associated Diagnosis Comments SCREENING MAMMOGRAM BILATERAL W MANSOOR 11/07/2020 12:51 PM CDT GENERAL RADIOLOGY REPORT 11/07/2020 12:00 AM CDT documented in this encounter Results * Screening Mammogram Bilateral W Mansoor (11/07/2020 12:51 PM CDT) Anatomical Region Laterality Modality Breast Bilateral Mammography 11/07/2020 12:5 9 PM CDT Narrative 11/07/2020 2:14 PM CDT Patient Name: REBEKAH RAE ?Ordering Dr: Allen Drake MD ?? D.O.B: 1980 ? Exam Date: 11/07/20 ?? 1251 ?? Age: 40 ?Sex: Female ? MR#: [id number] ?? Loc: ? RADIOLOGY REPORT ?? Order #[id number] ?? [facility] ? Elvira Bilat Screening 3D ? Signed ?- MG ?? BILATERAL DIGITAL SCREENING MAMMOGRAM 3D/2D WITH MEDIOLATERAL OBLIQUE ?? CRANIOCAUDAL: 11/07/2020 ?? The study was acquired using full field digital technology and interpreted from ?soft copy. ?2D digital mammographic views, as well as 3D digital tomosynthesis were ?? performed in the CC and MLO projections. ? CLINICAL: Routine mammogram. Denies any problems today. No personal history of ?? breast cancer. No family history of breast cancer. ? COMPARISONS: Comparison is made to exam dated: ??02/05/2019 mammogram - [facility] ?? [facility]. ? BREAST TISSUE: The tissue of both breasts is extremely dense, which lowers the ?? sensitivity of mammography. ? FINDINGS: ?? There are bilateral subpectoral silicone breast implants. ??There ?? are no suspicious findings in either breast. ??There has been no suspicious ?? interval change. ? IMPRESSION: BI-RAD 1 ??NEGATIVE ?? There is no mammographic evidence of malignancy. A 1 year screening mammogram ?? is recommended. ? The patient has been or will be contacted. ? We recommend annual screening mammography for women at average risk of breast ?? cancer beginning at age 40, based on guidelines of the [employer] ?? [employer] (ACR Practice Parameter for the Performance of Screening and ?? Diagnostic Mammography) and [employer] and ?? Gynecologists. For women with an elevated risk of breast cancer, please refer ?? to the ACR Practice Parameter for specific screening recommendations. ? The patient will be entered into a reminder system with a target due date of 1 ?? year for her next screening exam. ? Electronically signed by: ?Malvin Browning M.D. ? ab/:11/07/2020 14:14:55 ? Mathematician Research: Leilani Dotson)(Marguerite), [facility] ?? letter sent: Normal Exam ? Reading location: ?? BI-RADS: 1 Negative ? REPORT ELECTRONICALLY SIGNED IN OTHER VENDOR SYSTEM ?? Resulting Agency Comment O Procedure Note Malvin Browning MD - 11/07/2020 Patient Name: Allan RAE Dr: Allen Drake MD D.O.B: 1980 Exam Date: 11/07/20 1251 Age: 40 Sex: Female MR#: [id number] Loc: RADIOLOGY REPORT Order #[id number] [facility] Elvira Bilat Screening 3D Signed - MG BILATERAL DIGITAL SCREENING MAMMOGRAM 3D/2D WITH MEDIOLATERAL OBLIQUE CRANIOCAUDAL: 11/07/2020 The study was acquired using full field digital technology andinterpreted from soft copy. 2D digital mammographic views, as well as 3D digital tomosynthesis were performed in the CC and MLO projections. CLINICAL: Routine mammogram. Denies any problems today. No personalhistory of breast cancer. No family history of breast cancer. COMPARISONS: Comparison is made to exam dated: 02/05/2019 mammogram -[facility]. BREAST TISSUE: The tissue of both breasts is extremely dense, whichlowers the sensitivity of mammography. FINDINGS: There are bilateral subpectoral silicone breast implants.There are no suspicious findings in either breast. There has been nosuspicious interval change. IMPRESSION: BI-RAD 1 NEGATIVE There is no mammographic evidence of malignancy. A 1 year screeningmammogram is recommended. The patient has been or will be contacted. We recommend annual screening mammography for women at average risk ofbreast cancer beginning at age 40, based on guidelines of the [employer] [employer] (ACR Practice Parameter for the Performance of Screening and Diagnostic Mammography) and [employer]. For women with an elevated risk of breast cancer, pleaserefer to the ACR Practice Parameter for specific screening recommendations. The patient will be entered into a reminder system with a target due dateof 1 year for her next screening exam. Electronically signed by: Malvin Browning M.D. ab/:11/07/2020 14:14:55 Mathematician Research: Leilani Galan RT (R)(M), [facility] letter sent: Normal Exam Reading location: BI-RADS: 1 Negative REPORT ELECTRONICALLY SIGNED IN OTHER VENDOR SYSTEM Allen Drake MD IMG MAMMO PROCEDURES Final Result * GENERAL RADIOLOGY REPORT (11/07/2020 12:00 AM CDT) Anatomical Region Laterality Modality Radiographic Alisa ging Narrative 11/07/2020 12:00 AM CDT Ordered by an unspecified provider. Historical Provider MD CEJA XR PROCEDURES Final R esult documented in this encounter Visit Diagnoses Not on filedocumented in this encounter Care Teams Tipple Mechanic Relationship Specialty Start Date End Date Dudley Anne MD [address] [place] [address] PCP - General 02/02/19 [place] [address] [place] [address] Surgeon Plastic Surgery 08/13/19 documented as of this encounter
--- OUTSIDE RECORDS SUMMARY | 2024-07-06 04:51 | XMS_ITS | Encounter Summary ---
Author Organization [facility] Address [address] [place] [address] Phone Care Team Providers Care Foam Caster Name Role Phone Dudley Anne MD Primary Care Provider [phone] Josias Pedersen MD Unavailable [phone] Encounter Details Date Type Department Care Team (Late st Contact Info) Description 04/20/2024 10:45 AM CDT Office Visit [facility] Dermatology [address] [place] [address] Hardy Tompkins MD PhD [address] [address] Melasma (Primary Dx) Social History Tobacco Use Types Packs/Day Years [...] on file documented as of this encounter Progress Notes * Hardy Tompkins MD PhD - 04/20/2024 10:45 AM CDT Rebekah Rae [id number] 04/20/24 CHIEF COMPLAINT: Melasma HISTORY OF PRESENT ILLNESS Rebekah Rae is a 44 y.o. female new to clinic, here today for evaluation and to establish care. Pt states today, Concerns with melasma on face, has tried laser treatment, topical cream. No improvement. Worsens inthe Summer. Would apply SPF 50 or 30 daily. Has used Hydroquinone based cream earlier this year. No other associated symptoms, exacerbating or alleviating factors. No other painful, bleeding or pruritic areas. No other new, changing or otherwise suspicious lesions. HISTORY Medications and allergies reviewed in chart Past medical, family and social history reviewed and noncontributory unless noted in HPI. Past Medical History: Diagnosis Date Factor V Leiden (HCC) REVIEW OF SYSTEMS Constitutional: [ ] lack of energy, [ ] unexplained weight gain/loss, [ ] appetite loss, [ ] fever,[ ] night sweats, [ ] pain with mastication, [ ] scalp tenderness, [ ] prior cancer diagnosis, [ ] other ___ ENT: [ ] difficulty hearing, [ ] sinus problems, [ ] runny nose, [ ] post-nasal drip, [ ] ringing in ears, [ ] mouth sores, [ ] loose teeth, [ ] ear pain, [ ] nosebleeds, [ ] sore throat, [ ] facial pain/numbness, [ ] other ___ CV: [ ] irregular heartbeat, [ ] racing heart, [ ] chest pains, [ ] swelling of feet/legs, [ ] painin legs while walking, [ ] other ___ Resp: [ ] shortness of breath, [ ] night sweats, [ ] prolonged cough, [ ] wheezing, [ ] sputum production, [ ] prior tuberculosis, [ ] pleurisy, [ ] oxygen at home, [ ] coughing up blood, [ ] abnormal CXR, [ ] other ___ GI: [ ] heartburn, [ ] constipation, [ ] food intolerance, [ ] diarrhea, [ ] abdominal pain, [ ] difficulty swallowing, [ ] nausea, [ ] vomiting, [ ] bloody stool, [ ] unexplained change in bowel habits, [ ] incontinence, [ ] other ___ : [ ] painful urination, [ ] frequent urination, [ ] urgency, [ ] prostate problems, [ ] bladder problems, [ ] impotence, [ ] other ___ MSK: [ ] joint pain, [ ] muscle aches, [ ] shoulder pain, [ ] joint swelling, [ ] joint deformity, [ ] back pain, [ ] other ___ Integ: [ ] persistent rash, [ ] itching, [ ] new skin lesions, [ ] change in existing skin lesions,[ ] hair loss/increase, [ ] breast changes, [ ] other ___ Neuro: [ ] frequent headaches, [ ] double vision, [ ] weakness, [ ] change in sensation, [ ] problems with walking/balance, [ ] dizziness, [ ] tremor, [ ] loss of consciousness, [ ] uncontrolled motions, [ ] episodes of visual loss, [ ] other ___ Psych: [ ] insomnia, [ ] irritability, [ ] depression, [ ] anxiety, [ ] recurrent bad thoughts, [ ]mood swings, [ ] hallucinations, [ ] compulsions, [ ] other ___ Endocrine: [ ] heat/cold intolerance, [ ] menstrual irregularities, [ ] frequent hunger/urination/thirst, [ ] changes in sex drive, [ ] other ___ Heme: [ ] easy bleeding, [ ] easy bruising, [ ] anemia, [ ] abnormal blood tests, [ ] leukemia, [ ]unexplained swollen areas, [ ] other ___ Allergy/Immunology: [ ] seasonal allergies, [ ] hay fever symptoms, [ ] frequent infections, [ ] HIV exposure, [ ] other ___ Positive if X present, negative if no X present Patient advised to discuss non-dermatologic ROS concerns with a primary care physician PHYSICAL EXAM Gen and Cardio: Well-developed and well-nourished in no acute distress. Alert oriented and interacts appropriately. Normal conjunctiva. Normal skin sensation. No lower extremity edema. Head and neck and upper limbs exam: Well developed and well-nourished in no acute distress. Alert oriented and interacts appropriately. Normal conjunctiva. Normal skin sensation. A waist-up examination was performed with close inspection and palpation where indicated and as allowed by the patient of the hair, scalp, face, lips, neck, right upper and left upper extremities, hands, nails and digits. The exam was notable for the following findings: Well-demarcated hyperpigmented patches on face ASSESSMENT AND PLAN Melasma: Face Discussed nature of condition. Benign. Pt has already used Hydroquinone based topical earlier this year Discussed Azelaic acid and Tranexamic acid based creams (also taking oral tranexamic acid temporarily), Pt defers at this time; Was written down for Pt and they can message for prescription if desired Can send to [facility] for cosmetic procedures (lasers, etc.) Return visit: PRN Patient was instructed to return sooner should they develop any new, changing and/or worsening lesions, side effects of any recommended treatments, or as needed. SCRIBE ATTESTATION By signing my name, I, PAOLA Short, scribe, attest that this documentation has been preparedunder the direction and in the presence of Dr. Tompkins 04/20/2024 11:13 AM ATTENDING ATTESTATION I personally performed the services described in this documentation, reviewed and edited the documentation which was dictated to the scribe in my presence, and it accurately records my words and actions. Electronically Signed: Hardy Tompkins MD, PhD documented in this encounter Plan of Treatment Not on file documented as of this encounter Visit Diagnoses Diagnosis Melasma- Primary Other dyschromia documented in this encounter Care Teams Foam Caster Relationship Specialty Start Date End Date Dudley Anne MD [address] [place] [address] PCP - General 02/02/19 [place] [address] [place] [address] Surgeon Plastic Surgery 08/13/19 documented as of this encounter
--- OUTSIDE RECORDS SUMMARY | 2024-07-06 04:51 | XMS_ITS | Clinical Summary ---
Author Organization [facility] Address [address] [place] [address] Care Team Providers Care Abrasive Band Winder Name Role Phone Dudley Anne MD Primary Care Provider [phone] Josias Pedersen MD Unavailable [phone] Allergies Active Allergy Reactions Criticality Noted Date [...] Active Active Problems No known active problems Encounters Date Type Department Care Team Description 04/20/2024 10:45 AM CDT Office Visit [facility] Dermatology [address] [place] [address] Hardy Tompkins MD PhD Sonali (Primary Dx) from Last 3 Months Surgical History Surgery Date Site/Laterality Comments SECTION 1999, 2005 AUGMENTATION MAMMAPLASTY Bilateral Medical History Medical History Date Comments Factor V Leiden (HCC) Social History Tobacco Use Types Packs/Day Years Used Date Smoking Tobacco: Never Smokeless Tobacco: Never Alcohol Use Standard Drinks/Week Comments Yes 4 (1 standard drink = 0.6 oz pur e alcohol) Comments No Sex and Gender Information Value Date Recorded Sex Assigned at Not on file Legal Sex Female 1:29 PM CDT Gender Identity Not on file Sexual Orientation Not on file Obstetrics History Para Term AB IAB SAB Ectopic Multiple Livin g Live Births 5 Date Outcome GA Total Labor Labor/2nd/3rd Weight Sex Type Anes PTL Lorie A1 A5 Name Clin Last Filed Vital Signs Vital Sign Reading Time Taken Comments Blood Pressure 131/96 08/13/2019 4:05 AM HANGING FLAGS DECORATOR Pulse 90 08/13/2019 4:05 AM HANGING FLAGS DECORATOR Temperature 37.1 ??C (98.8 ??F) 08/13/2019 4:05 AM CS T Respiratory Rate 18 08/13/2019 4:05 AM HANGING FLAGS DECORATOR Oxygen Saturation 97% 08/13/2019 4:05 AM HANGING FLAGS DECORATOR Inhaled Oxygen Concentration - - Weight 68 kg (150 lb) 08/12/2019 10:36 AM HANGING FLAGS DECORATOR Height 154.9 cm (5' 1 ) 08/12/2019 10:36 AM HANGING FLAGS DECORATOR Body Mass Index 28.34 08/12/2019 10:36 AM HANGING FLAGS DECORATOR Plan of Treatment Health Maintenance Due Date Last Done Comments Cervical Cancer Screening 1978 Colon Cancer Screening-Colonoscopy 1978 Depression Screening 1978 Hepatitis C Screening 1978 DTaP/Tdap/Td Vaccine (1 - Tdap) 1989 Hepatitis B Screening 02/14/1996 Regular Well Visit/Exam 18-64 02/14/1996 Covid-19 Vaccine (3 - 2023-2 5 season) 2024 11/28/2020, 10/29/2020 Influenza Vaccine (#1) 2024 Breast Cancer Screening-Mammogram 08/04/2024 08/04/2023, 11/07/2020, 02/05/2019 HPV Vaccines Aged Out No longer eligi ble based on patient's age to complete this topic Pneumococcal vaccine <65 Aged Out No longer eligible based on patient's age to complete this topic Medical Devices Implanted Type Area Coating Technician Device Identifier Shelf Expiration Date Model / Serial / Lot [employer] Ssf-520 Natrelle Inspira Smooth Shell Surface Soft Touch Implant 520cc Latex Free - [id number] - [id number] Implanted:Qty : 1 on 08/12/2019 by Josias Pedersen MD at [facility] Breast Right: Breast [employer] [id number] 01/18/2024 SSF-520 / [id number] / [id number] Description:*NO CHARGE IMPLA NT PROVIDED BY THE SURGEON KV* [employer] Ssf-485 Natrelle Inspira Smooth Shell Surface Soft Touch Implant 485cc Latex Free - [id number] - [id number] Implanted:Qty : 1 on 08/12/2019 by Josias Pedersen MD at [facility] Breast Left: Breast [employer] [id number] 09/22/2023 SS-485 / [id number] / [id number] Description:*NO CHARGE IMPLA NT PROVIDED BY THE SURGEON KV* Procedures Procedure Name Priority Date/Time Associated Diagnosis Comments SCREENING MAMMOGRAM BILATERAL W KIRAN W IMPLANTS Schedule Routine, Read Routine (OP Routine) 08/04/2023 1:57 PM HANGING FLAGS DECORATOR Screening mammogram, encounter for from Last 3 Months or Most Recently Relevant to Health Maintenance Results * Screening Mammogram Bilateral W Kiran W Implants (08/04/2023 1:57 PM HANGING FLAGS DECORATOR) Anatomical Region Laterality Modality Breast Bilateral Mammography Impressions 08/04/2023 3:12 PM HANGING FLAGS DECORATOR BI-RADS?? ATLAS category (overall): 2 - Benign [...] next screening exam. Narrative 08/04/2023 3:12 PM HANGING FLAGS DECORATOR Screening Mammogram Bilateral W Kiran W Implants: [...] Most Recently Relevant to Health Maintenance Insurance [employer] [facility] Address: [address] [address] [employer] [facility] [employer] Address: [address] [address] [place] [address] Advance Directives For more information, please contact: [phone] * Full Code (Latest Code Status on File) Date Activated Date Inactivated Comments 08/12/2019 4:59 PM 08/13/2019 6:23 PM Care Teams Abrasive Band Winder Relationship Specialty Start Date End Date Dudley Anne MD [address] [place] [address] PCP - General 02/02/19 [place] [address] [place] [address] Surgeon Plastic Surgery 08/13/19
--- OUTSIDE RECORDS SUMMARY | 2024-07-06 04:52 | XMS_ITS | Encounter Summary ---
Author Organization [facility] Healthcare Address [address] [place] [address] Care Team Providers Care Commercial Photographer Name Role Phone Dudley Anne MD Primary Care Provider + [phone] Josias Pedersen MD Unavailable [phone] Encounter Details Date Type Department Care Team (Late st Contact Info) Description 08/12/2019 9:36 AM RELIEF DRILLER - 08/13/2019 2:10 PM RELIEF DRILLER Hospital Encounter [facility] [id number] [place] [address] [place] [address] [place] [address] Discharge Disposition: Discharge to home or self [...] on file documented as of this encounter Last Filed Vital Signs Vital Sign Reading Time Taken Comments Blood Pressure 131/96 08/13/2019 4:05 AM RELIEF DRILLER Pulse 90 08/13/2019 4:05 AM RELIEF DRILLER Temperature 37.1 ??C (98.8 ??F) 08/13/2019 4:05 AM CS T Respiratory Rate 18 08/13/2019 4:05 AM RELIEF DRILLER Oxygen Saturation 97% 08/13/2019 4:05 AM RELIEF DRILLER Inhaled Oxygen Concentration - - Weight 68 kg (150 lb) 08/12/2019 10:36 AM RELIEF DRILLER Height 154.9 cm (5' 1 ) 08/12/2019 10:36 AM RELIEF DRILLER Body Mass Index 28.34 08/12/2019 10:36 AM RELIEF DRILLER documented in this encounter Discharge Diagnoses Diagnosis Encounter for cosmetic surgery - ENCOUNTER FOR COSMETIC SURGERY 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 RESISTANCE Primary hypercoagulable state Unspecified lump in the right breast, unspecified quadrant - UNSPECIFIED LUMP IN THE RIGHT BREAST, UNSPECIFIED QUADRANT Mastodynia - MASTODYNIA Obesity, unspecified - OBESITY, UNSPECIFIED Body mass index (bmi) 30.0-30.9, adult - BODY MASS INDEX (BMI) 30.0-30.9, ADULT Allergy status to other antibiotic agents status - ALLERGY STATUS TO OTHER ANTIBIOTIC AGENTS STATUS documented in this encounter Medications at Time of Discharge CALCIUM ORALIndications:O TC Take 1 tablet by mouth every morning cefuroxime (CEFTIN) 250 mg tablet 08/04/2019 diazePAM (VALIUM) 5 mg tablet Take 1 tablet (5 mg total) by mouth every 6 (six) hours as needed for muscle spasms for up to 7 days 08/13/2019 oxyCODONE-acetami nophen (PERCOCET) 5-325 mg per tabletIndications :Pain Take 1 tablet by mouth every 6 (six) hours as needed for pain 30 tablet 08/13/2019 vitamin b complex tabletIndications :Vitamin Deficiency Prevention Take 2 tablets by mouth every morning documented as of this encounter Ordered Prescriptions Prescription Sig Dispense Quantity Refills Last Filled Start Date End Date diazePAM (VALIUM) 5 mg tablet Take 1 tablet (5 mg total) by mouth every 6 (six) hours as needed for muscle spasms for up to 7 days 08/13/2019 oxyCODONE-acetamino phen (PERCOCET) 5-325 mg per tabletIndications:P ain Take 1 tablet by mouth every 6 (six) hours as needed for pain 30 tablet 08/13/2019 documented in this encounter Discharge Disposition Disposition Code Departure Means Destination Discharge to home or self care documented in this encounter Progress Notes * Josias Pedersen MD - 08/13/2019 7:59 AM CST Plastic Surgery Daily Progress 08/13/2019 Subjective Chief complaint of post op day 1 from cosmetic procedure. Interval History: Doing well. Pain much improved. Ambulating, tolerating PO, no SOB or CP or leg pain. Current Facility-Administered Medications: ??? bupivacaine preservative free 0.25 % in On-Q reservoir 270 mL, 4 mL/hr, infiltration, Continuous, Josias Pedersen MD ??? bupivacaine preservative free 0.25 % in On-Q reservoir 270 mL, 4 mL/hr, infiltration, Continuous, Josias Pedersen MD ??? dextrose 5% and sodium chloride 0.45% infusion (premix), 100 mL/hr, intravenous, Continuous, Josias Pedersen MD, Last Rate: 100 mL/hr at 08/12/19 173, 100 mL/hr at 08/12/19 173 ??? diazePAM (VALIUM) tablet 5 mg, 5 mg, oral, Q6H PRN, Josias Pedersen MD, 5 mg at 08/13/19 0405 ??? diphenhydrAMINE (BENADRYL) tab/cap 25 mg, 25 mg, oral, Q6H PRN, Josias Pedersen MD ??? docusate sodium (COLACE) capsule 100 mg, 100 mg, oral, BID, Josias Pedersen MD, 100 mg at 08/12/192015 ??? fondaparinux (ARIXTRA) injection 2.5 mg, 2.5 mg, subcutaneous, Daily, Josias Pedersen MD, 2.5 mg at 08/13/19 0517 ??? HYDROmorphone (DILAUDID) injection 0.2 mg, 0.2 mg, intravenous, Q4H PRN, Josias Pedersen MD ??? Lactated Ringer's (LR) infusion, 30 mL/hr, intravenous, Continuous, Meme Whittington MD, Last Rate: 30 mL/hr at 08/12/19 1048, 30 mL/hr at 08/12/19 1048 ??? Lactated Ringer's (LR) infusion, 125 mL/hr, intravenous, Continuous, Meme Whittington MD ??? oxyCODONE-acetaminophen (PERCOCET) 5-325 mg per tablet 1 tablet, 1 tablet, oral, Q4H PRN, Josias Pedersen MD, 1 tablet at 08/13/19 0110 ??? prochlorperazine (COMPAZINE) tablet 5 mg, 5 mg, oral, Q6H PRN, 5 mg at 08/12/192026 OR prochlorperazine (COMPAZINE) injection 10 mg, 10 mg, intravenous, Q6H PRN, Josias Pedersen MD ??? scopolamine patch 72 hour 1 patch, 1 patch, transdermal, Once, Meme Whittington MD, 1 patch at 08/12/19 1043 ??? sodium chloride 0.9% flush 0.5-20 mL, 0.5-20 mL, intra-catheter, Q8H RAHUL, Josias Pedersen MD, 10 mL at 08/12/192019 ??? sodium chloride 0.9% flush 0.5-20 mL, 0.5-20 mL, intra-catheter, PRN, Josias Pedersen MD Objective Physical Exam: Face: Breast: Soft, no hematomas. Abdomen: Soft, flaps viable, no hematomas. Extremities: Soft, no tenderness to calfs. Lab/Radiology/Diagnostic Review: Laboratory review: Lab results in the last 24 hours: Recent Results (from the past 24 hour(s)) POCT hCG, urine Collection Time: 08/12/19 10:34 AM Result Value Ref Range HCG, ur, POC Negative Lot Number [id number] QC Backgroud Clear Acceptable QC Control Line Acceptable POCT cotinine Collection Time: 08/12/19 10:35 AM Result Value Ref Range Cotinine, POC Negative Lot Number [id number] QC Negative Control Acceptable QC Positive Control Acceptable Vitals: 24hr Min/Max: Temp Min: 35.8 ??C (96.4 ??F) Max: 37.1 ??C (98.8 ??F) Pulse Min: 59 Max: 90 BP Min: 110/81 Max: 174/91 Resp Min: 11 Max: 21 SpO2 Min: 96 % Max: 100 % Most Recent : Vitals: 08/13/19 0405 BP: 131/96 Pulse: 90 Resp: 18 Temp: 37.1 ??C (98.8 ??F) SpO2: 97% I/O last 2 completed shifts: In: 4056 [P.O.:1000; I.V.:3056] Out: 1617 [Urine:1387; Drains:130; Blood:100] I/O this shift: In: - Out: 800 [Urine:800] Assessment /Plan Active Problems: No Active Problems: There are no active problems currently on the Problem List. Please update the Problem List and refresh. OK to discharge home. Instructions reviewed in detail. Josias Pedersen MD EF DRILLER * Josias Pedersen MD - 08/12/2019 7:54 PM CST Plastic Surgery Daily Progress 08/12/2019 Subjective Chief complaint of swelling to right breast and pain after breast augmenation. Interval History: Called because of increased swelling to right breast and pain. Current Facility-Administered Medications: ??? bupivacaine preservative free 0.25 % in On-Q reservoir 270 mL, 4 mL/hr, infiltration, Continuous, Josias Pedersen MD ??? bupivacaine preservative free 0.25 % in On-Q reservoir 270 mL, 4 mL/hr, infiltration, Continuous, Josias Pedersen MD ??? ceFAZolin (ANCEF) 2,000 mg/20 mL in sterile water (premix) 2,000 mg, 2,000 mg, intravenous, Q8H, Josias Pedersen MD ??? dextrose 5% and sodium chloride 0.45% infusion (premix), 100 mL/hr, intravenous, Continuous, Josias Pedersen MD, Last Rate: 100 mL/hr at 08/12/19 173, 100 mL/hr at 08/12/19 173 ??? diazePAM (VALIUM) tablet 5 mg, 5 mg, oral, Q6H PRN, Josias Pedersen MD ??? diphenhydrAMINE (BENADRYL) tab/cap 25 mg, 25 mg, oral, Q6H PRN, Josias Pedersen MD ??? docusate sodium (COLACE) capsule 100 mg, 100 mg, oral, BID, Josias Pedersen MD ??? [START ON 08/13/2019] fondaparinux (ARIXTRA) injection 2.5 mg, 2.5 mg, subcutaneous, Daily, Josias Pedersen MD ??? HYDROmorphone (DILAUDID) injection 0.2 mg, 0.2 mg, intravenous, Q4H PRN, Josias Pedersen MD ??? Lactated Ringer's (LR) infusion, 30 mL/hr, intravenous, Continuous, Meme Whittington MD, Last Rate: 30 mL/hr at 08/12/19 1048, 30 mL/hr at 08/12/19 1048 ??? Lactated Ringer's (LR) infusion, 125 mL/hr, intravenous, Continuous, Meme Whittington MD ??? oxyCODONE-acetaminophen (PERCOCET) 5-325 mg per tablet 1 tablet, 1 tablet, oral, Q4H PRN, Josias Pedersen MD, 1 tablet at 08/12/19 1734 ??? prochlorperazine (COMPAZINE) tablet 5 mg, 5 mg, oral, Q6H PRN OR prochlorperazine (COMPAZINE) injection 10 mg, 10 mg, intravenous, Q6H PRN, Josias Pedersen MD ??? scopolamine patch 72 hour 1 patch, 1 patch, transdermal, Once, Meme Whittington MD, 1 patch at 08/12/19 1043 ??? sodium chloride 0.9% bolus 500 mL, 500 mL, intravenous, Once, Josias Pedersen MD ??? sodium chloride 0.9% flush 0.5-20 mL, 0.5-20 mL, intra-catheter, Q8H RAHUL, Jsoias Pedersen MD ??? sodium chloride 0.9% flush 0.5-20 mL, 0.5-20 mL, intra-catheter, PRN, Josias Pedersen MD Objective Physical Exam: Face: Breast: Both breasts are soft with equal swelling. No bleeds noted after dressing removed. Abdomen: Abdomen soft, flaps viable. Extremities: Lab/Radiology/Diagnostic Review: Laboratory review: Lab results in the last 24 hours: Recent Results (from the past 24 hour(s)) POCT hCG, urine Collection Time: 08/12/19 10:34 AM Result Value Ref Range HCG, ur, POC Negative Lot Number [id number] QC Backgroud Clear Acceptable QC Control Line Acceptable POCT cotinine Collection Time: 08/12/19 10:35 AM Result Value Ref Range Cotinine, POC Negative Lot Number [id number] QC Negative Control Acceptable QC Positive Control Acceptable Vitals: 24hr Min/Max: Temp Min: 35.8 ??C (96.4 ??F) Max: 37.1 ??C (98.8 ??F) Pulse Min: 59 Max: 88 BP Min: 110/81 Max: 174/91 Resp Min: 11 Max: 21 SpO2 Min: 96 % Max: 100 % Most Recent : Vitals: 08/12/191914 BP: 116/78 Pulse: 86 Resp: 21 Temp: 36.3 ??C (97.3 ??F) SpO2: 100% I/O last 2 completed shifts: In: 2130 [I.V.:2130] Out: 417 [Urine:262; Drains:55; Blood:100] I/O this shift: In: - Out: 25 [Drains:25] Assessment /Plan Active Problems: No Active Problems: There are no active problems currently on the Problem List. Please update the Problem List and refresh. Patient doing well and discharge planned for AM. Josias Pedersen MD EF DRILLER documented in this encounter H&P Notes * Josias Pedersen MD - 08/12/2019 10:42 AM CST Plastic Surgery History and Physical 08/12/2019 Subjective Sasha Rae is a 39 y.o. female, who presents for Cosmetic procedure. HPI: Patient here for a breast augmentation and abdominoplasty. Past Medical History: Diagnosis Date ??? Factor V Leiden (CMS/HCC) Past Surgical History: Procedure Laterality Date ??? SECTION 1999, 2005 Medications Prior to Admission Medication Sig Dispense Refill Last Dose ??? CALCIUM ORAL Take 1 tablet by mouth every morning Past Week at Unknown time ??? cefuroxime (CEFTIN) 250 mg tablet 08/12/2019 at 0815 ??? docosahexanoic acid/epa (FISH OIL ORAL) Take 1 tablet by mouth every morning Past Week at Unknown time ??? ibuprofen (ADVIL,MOTRIN) 200 mg tab/cap Take 200 mg by mouth every 6 (six) hours as needed for pain Past Week at Unknown time ??? vitamin b complex tablet Take 2 tablets by mouth every morning Past Week at Unknown time Allergies Allergen Reactions ??? Ciprofloxacin Rash Social History Tobacco Use ??? Smoking status: Never Smoker ??? Smokeless tobacco: Never Used Substance Use Topics ??? Alcohol use: Yes Alcohol/week: 4.0 standard drinks Types: 4 Standard drinks or equivalent per week History reviewed. No pertinent family history. Review of Systems Review of systems per HPI and otherwise all systems are negative Objective Vitals: Vitals: 08/12/19 1035 BP: 121/74 Pulse: Resp: Temp: SpO2: I&O No intake/output data recorded. Physical exam: Physical Exam Constitutional: Appearance: Normal appearance. Cardiovascular: Rate and Rhythm: Normal rate and regular rhythm. Pulmonary: Effort: Pulmonary effort is normal. Breath sounds: Normal breath sounds. Abdominal: General: Abdomen is flat. Bowel sounds are normal. Palpations: Abdomen is soft. Neurological: Mental Status: She is alert. Psychiatric: Mood and Affect: Mood normal. Behavior: Behavior normal. Thought Content: Thought content normal. Judgment: Judgment normal. Lab/Radiology/Diagnostic Review: Laboratory review: Lab results in the last 24 hours: Recent Results (from the past 24 hour(s)) POCT hCG, urine Collection Time: 08/12/19 10:34 AM Result Value Ref Range HCG, ur, POC Negative Lot Number [id number] QC Backgroud Clear Acceptable QC Control Line Acceptable POCT cotinine Collection Time: 08/12/19 10:35 AM Result Value Ref Range Cotinine, POC Negative Lot Number [id number] QC Negative Control Acceptable QC Positive Control Acceptable Assessment /Plan Active Problems: No Active Problems: There are no active problems currently on the Problem List. Please update the Problem List and refresh. Abdominoplasty and breast augmentation. Admission to follow. Josias Pedersen MD EF DRILLER documented in this encounter Nursing Notes * Keli Zamarripa, REUBEN - 08/12/2019 7:52 PM CST Right breast increased in size and a bit firm when compared to left. Dr. Pedersen notified and said take down maribell wrap. Dr. Pedersen showed up at bedside and examined patient. He states pt is fine and no abnormalities. Will continue to minitor EF DRILLER * Keli Zamarripa, REUBEN - 08/12/2019 6:48 PM CST Low berkowitz output only 30ml over [address] Pedersen aware and new orders obtained. 500ml NSbolus and if berkowitz out picks up may remove berkowitz at 10pm EF DRILLER documented in this encounter Miscellaneous Notes * Plan of Care - Loan Choudhary RN - 08/13/2019 9:31 AM CST Goals: Clinical Goals for the Shift: pain control, IS, ankle pumps, ambulate, DC Summary: Problem: Health Behavior: Goal: Understanding of discharge needs will improve Outcome: Adequate for Discharge Problem: Activity: Goal: Ability to tolerate increased activity will improve Outcome: Adequate for Discharge Problem: Bowel/Gastric: Goal: Gastrointestinal status for postoperative course will improve Outcome: Adequate for Discharge Problem: Lack of Knowledge: Goal: Understanding of discharge needs will improve Outcome: Adequate for Discharge Problem: Coping: Goal: Level of anxiety will decrease Outcome: Adequate for Discharge Problem: Fluid Volume: Goal: Will show no signs or symptoms of fluid imbalance Outcome: Adequate for Discharge Problem: Nutritional: Goal: Will attain and maintain optimal nutritional status will improve Outcome: Adequate for Discharge Problem: Physical Regulation: Goal: Postoperative complications will be avoided or minimized Outcome: Adequate for Discharge Problem: Respiratory: Goal: Will remain free from respiratory infection Outcome: Adequate for Discharge Problem: Safety: Goal: Ability to remain free from injury will improve Outcome: Adequate for Discharge Problem: Sensory: Goal: Pain level will decrease Outcome: Adequate for Discharge Problem: Skin Integrity: Goal: Will remain free from wound infection Outcome: Adequate for Discharge Problem: Urinary Elimination: Goal: Ability to reestablish a normal urinary elimination pattern will improve Outcome: Adequate for Discharge Problem: Activity: Goal: Ability to return to normal activity level will improve Outcome: Adequate for Discharge Problem: Bowel/Gastric: Goal: Gastrointestinal status for postoperative course will improve Outcome: Adequate for Discharge Problem: Lack of Knowledge: Goal: Understanding of discharge needs will improve Outcome: Adequate for Discharge Problem: Fluid Volume: Goal: Ability to maintain a balanced intake and output will improve Outcome: Adequate for Discharge Problem: Health Behavior: Goal: Identification of resources available to assist in meeting health care needs will improve Outcome: Adequate for Discharge Problem: Nutritional: Goal: Ability to attain and maintain optimal nutritional status will improve Outcome: Adequate for Discharge Problem: Physical Regulation: Goal: Postoperative complications will be avoided or minimized Outcome: Adequate for Discharge Problem: Respiratory: Goal: Ability to maintain adequate ventilation will improve Outcome: Adequate for Discharge Goal: Respiratory status will improve Outcome: Adequate for Discharge Problem: Safety: Goal: Ability to remain free from injury will improve Outcome: Adequate for Discharge Problem: Sensory: Goal: Pain level will decrease Outcome: Adequate for Discharge Problem: Skin Integrity: Goal: Evidence of wound healing without infection will improve Outcome: Adequate for Discharge Problem: Urinary Elimination: Goal: Will remain free from infection Outcome: Adequate for Discharge Goal: Ability to achieve and maintain adequate urine output will improve Outcome: Adequate for Discharge EF DRILLER * Plan of Elizabeth - Cheryl Arevalo RN - 08/13/2019 5:52 AM CST Problem: Health Behavior: Goal: Understanding of discharge needs will improve Outcome: Progressing Problem: Activity: Goal: Ability to tolerate increased activity will improve Outcome: Progressing Problem: Bowel/Gastric: Goal: Gastrointestinal status for postoperative course will improve Outcome: Progressing Problem: Lack of Knowledge: Goal: Understanding of discharge needs will improve Outcome: Progressing Problem: Coping: Goal: Level of anxiety will decrease Outcome: Progressing Problem: Fluid Volume: Goal: Will show no signs or symptoms of fluid imbalance Outcome: Progressing Problem: Nutritional: Goal: Will attain and maintain optimal nutritional status will improve Outcome: Progressing Problem: Physical Regulation: Goal: Postoperative complications will be avoided or minimized Outcome: Progressing Problem: Respiratory: Goal: Will remain free from respiratory infection Outcome: Progressing Problem: Safety: Goal: Ability to remain free from injury will improve Outcome: Progressing Problem: Sensory: Goal: Pain level will decrease Outcome: Progressing Problem: Skin Integrity: Goal: Will remain free from wound infection Outcome: Progressing Problem: Urinary Elimination: Goal: Ability to reestablish a normal urinary elimination pattern will improve Outcome: Progressing Problem: Activity: Goal: Ability to return to normal activity level will improve Outcome: Progressing Problem: Bowel/Gastric: Goal: Gastrointestinal status for postoperative course will improve Outcome: Progressing Problem: Lack of Knowledge: Goal: Understanding of discharge needs will improve Outcome: Progressing Problem: Fluid Volume: Goal: Ability to maintain a balanced intake and output will improve Outcome: Progressing Problem: Health Behavior: Goal: Identification of resources available to assist in meeting health care needs will improve Outcome: Progressing Problem: Nutritional: Goal: Ability to attain and maintain optimal nutritional status will improve Outcome: Progressing Problem: Physical Regulation: Goal: Postoperative complications will be avoided or minimized Outcome: Progressing Problem: Respiratory: Goal: Ability to maintain adequate ventilation will improve Outcome: Progressing Goal: Respiratory status will improve Outcome: Progressing Problem: Safety: Goal: Ability to remain free from injury will improve Outcome: Progressing Problem: Sensory: Goal: Pain level will decrease Outcome: Progressing Problem: Skin Integrity: Goal: Evidence of wound healing without infection will improve Outcome: Progressing Problem: Urinary Elimination: Goal: Will remain free from infection Outcome: Progressing Goal: Ability to achieve and maintain adequate urine output will improve Outcome: Progressing Goals: Clinical Goals for the Shift: Pain control, IS, Ankle Pumps, Rest, Berkowitz Removal, Void, Ambulate Summary: Pt well rested through night. Pt experienced nausea early on overnight, compazine given. Incision clean, dry, & intact. Surgical bra/ABD in place. Ab binder in place. VSS. Diazepam and Percocet given for pain. Pain is currently at a 3 and gradually improving. GRETA drains kit provided w/ teaching. GRETA drains w/ serosanguinous colored output. Arixtra teaching provided. Berkowitz D/C. Pt has vo ided and ambulating w/ no difficulties. Call light placed within reach, will continue to monitor. EF DRILLER * Plan of Care - Clubb, Keli Mendenhall RN - 08/12/2019 5:28 PM CST Goals: Clinical Goals for the Shift: (pain control, IS, ankle pumps) Summary: EF DRILLER * Perioperative Nursing Note - Di Paredes RN - 08/12/2019 2:46 PM RELIEF DRILLER Abdominal tissue removed-773 grams EF DRILLER * Brief Op Note - Josias Pedersen MD - 08/12/2019 1:08 PM CST Operative Progress Note Surgical Team: Surgeon(s) and Role: * Josias Pedersen MD - Primary Anesthesiologist: Aure Mccauley MD EVENTS ASSOCIATE: Dionne Chaves CRNA Wire Loop Machine Operator: Di Paredes RN; Sarah Kearns RN Scrub: ST Bill Technologist: ST Michelle BULK INTAKE WORKER: KM Anaya DATE OF SURGERY : 08/12/2019 Preoperative Diagnosis: Pre-op Diagnosis * Encounter for cosmetic surgery [Z41.1] Postoperative Diagnosis: Post-op Diagnosis * Encounter for cosmetic surgery [Z41.1] Procedure(s): Procedure(s) (LRB): EXTENDED ABDOMINOPLASTY (N/A) Bilateral breast augmentation, SOFT TOUCH IMPLANTS (Bilateral) Bilateral ELIPSE MASTOPEXY (Bilateral) Operative Findings: As expected. Estimated Blood Loss: No blood loss documented. Intraoperative Fluids: mls Specimens: No specimen collected in procedure Implants: Implant Name Type Inv. Item Serial No. Lead Front End Developer Lot No. LRB No. Used [employer] SSF-520 NATRELLE INSPIRA SMOOTH SHELL SURFACE SOFT TOUCH IMPLANT 520CC LATEX FREE - [id number] - [id number] Breast [employer] SSF- 520 Natrelle Inspira Smooth Shell Surface Soft Touch Implant 520cc Latex Free [id number] [employer] [id number] Right 1 [employer] SSF-485 NATRELLE INSPIRA SMOOTH SHELL SURFACE SOFT TOUCH IMPLANT 485CC LATEX FREE - [id number] - [id number] Breast [employer] SSF- 485 Natrelle Inspira Smooth Shell Surface Soft Touch Implant 485cc Latex Free [id number] [employer] [id number] Left 1 Blood/Blood Products Transfused: mls Complications: None Condition on Discharge from the operating room was stable Josias Pedersen MD Date: 08/12/2019 Time: 3:18 PM No Resident involved on case EF DRILLER * Op Note - Josias Pedersen MD - 08/12/2019 12:00 AM CST Attending Physician Josias Pedersen MD Oracle Programmer Analyst PAT Oneal Preoperative Diagnosis Cosmetic procedure. Postoperative Diagnosis Cosmetic procedure. Procedures Performed 1. Bilateral augmentation mammoplasty with placement of smooth round silicone gel implants. 2. Bilateral ellipse mastopexy. 3. Extended abdominoplasty. Complications None. EBL 100 mL. Indication This is a 39-year-old female seen in the office interested in being a larger bra cup size and also having her excess skin to her abdomen removed. She was noted to have a right breast that sat slightly lower than the left breast. She was not known to have any dramatic asymmetries preoperatively in terms of size of her breasts. The patient was deemed an excellent candidate for the procedure and was cleared by her primary doctor prior to the procedure secondary to having a history of Factor V Leiden deficiency. Findings The patient underwent the augmentation mammoplasty. She had the Natrelle Inspira SSF implants placed bilaterally with the ellipse mastopexy. Serial number for the left device which was a 485 mL device was [id number], serial number for the right device which was a 520 mL device was [id number]. The patient was noted to have very nice symmetry on the table. Her abdominoplasty flaps appeared viable throughout the entire procedure. She appeared intraoperatively in her abdomen to have an old seromatous-type capsule possibly secondary to her and/or secondary to liposuction. It appeared to be more traumatic from a liposuction procedure, however. Procedure Patient was brought into the operating room, placed in supine position. She was intubated and administered general anesthesia. Berkowitz catheter was placed. Sequential compression devices were applied to the lower extremities. Her abdomen and chest were prepped and draped in standard sterile fashion. A 4 cm inframammary incision was carried out along the inframammary crease. Dissection was carried down to the level of the chest wall. Small subglandular pocket was elevated, lateral edge of pectoralis muscle identified. Subpectoral pocket was elevated. The muscle was disinserted from the inferior and inferomedial attachments, creating a dual plane procedure. After appropriate pocket elevation, a500 mL high-profile sizer was placed in the right pocket and filled to 520 mL. Similar procedure onthe contralateral side. In upright position, she was noted to have improved symmetry with 485 on the left, 520 on the right. She was also noted to have an improved appearance with a bilateral crescent mastopexy procedure performed bilaterally. Closure of these incisions was performed using 3-0 Monocryl suture for the dermis and skin edges in a running subcuticular fashion. She was placed back down in supine position. Her sizers were removed. The pockets were irrigated with a triple antibiotic solution containing 1 g Ancef, 50,000 units of bacitracin, 80 mg of gentamicin, and 500 mL normal saline. After copious amounts of irrigation. Hemostasis was obtained with electrocautery. The pocket was irrigated with Betadine solution. The surgeon's gloves were changed and the implant funnel was used to carefully insert the 520 mL SSF device in the right pocket, 485 into the left. 2-0 PDS suture was used to approximate the breast tissue in interrupted fashion, 3-0 Monocryl sutures were used to approximate the dermis in interrupted fashion, skin edges in a running subcuticular fashion. Sterile dressings were placed on top. Attention was turned towards the abdomen. The umbilicus was cut to 15 mm in circumference. The lower abdominoplasty incision was carried out with a 15 blade knife. Dissection was carried down to the level of the abdominal wall fascia. The flap was elevated off the fascia through the scar tissue that was fairly extensive around the region. 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 The flap was elevated around the umbilicus up to thelevel of the xiphoid. After appropriate flap elevation, the midline of the abdomen was marked and amark was placed 2 cm off the midline. Several 2-0 PDS sutures were placed in a jowygd-[id number]-souyo fashion to plicate the abdominal musculature. A looped 0 Prolene suture was placed above the umbilicus and 1 below the umbilicus in running horizontal mattress fashion. Four 3-0 Vicryl sutures were placedat the 12 o'clock, 3 o'clock, 6 o'clock and 9 o'clock positions of the umbilicus, tacked down to their identical points on the abdominal wall fascia. Two pain catheters were placed through the upper abdominal wall flap and secured to the lower abdominal fascia using 3-0 Monocryl suture. After appropriate flap elevation, the patient was then placed in a flexed position at the hip and a tailor tacking method was used to excise the redundant skin. Inverted U-incision was carried out on the abdominal flap above the level of the umbilicus. A core of subcutaneous fat was excised below this. The Vicryl sutures around the umbilicus were then attached to identical points on the abdominal wall flap. The pocket was irrigated with saline solution and triple antibiotic solution. Hemostasis was carefully obtained with electrocautery. Two 15-Thai round drains were placed on top of the fascia exitedthrough stab incisions at the lateral hip, secured to the skin using 2-0 silk suture. 2-0 PDS sutures were used to approximate Mark's fascia layer in interrupted fashion. 3-0 Monocryl sutures were used to approximate the dermis in interrupted fashion. Skin in running subcuticular fashion. She wasplaced in compression garments, awakened, extubated, and brought to recovery room in stable condition. Sponge count and needle counts were accurate. Job ID/VF Job ID: [id number] EF DRILLER * Pre-Procedure Instructions - Carlie Porter NP - 08/02/2019 11:11 AM [facility] Location: [facility] The night before your surgery: * Do not eat or drink anything after midnight. This includes candy, mint, gums, chewable antacids (TUMS, Rolaids) and cough drops * Do not smoke after midnight the night before surgery. It is best to stop smoking now to improve your health. The morning of your surgery: * You may brush your teeth and rinse your mouth out. * Do not glue your dentures. * Do not wear jewelry, body piercings, makeup, hairpins, false eyelashes or contact lenses to the hospital. * Leave any valuables at home or with your family. You may want to bring a credit card if you want to use our Mobile Pharmacy for your discharge medications. Instructions For Your Medications: Pre-Surgery Instructions: Medication Instructions ??? CALCIUM ORAL Stop taking 1 week prior to surgery ??? docosahexanoic acid/epa (FISH OIL ORAL) Stop taking 1 week prior to surgery ??? ibuprofen (ADVIL,MOTRIN) 200 mg tab/cap Stop taking 5 days prior to surgery ??? vitamin b complex tablet Stop taking 5 days prior to surgery General Instructions For Medications: ?? Stop all of these medications 5 days prior to your surgery: excedrin, motrin, advil, ibuprofen, aleve, naproxen, celebrex, celecoxib, meloxicam ?? Stop all of these medications 7-14 days prior to your surgery: Vitamin E, Herbal medicines, DietPills ?? If you take aspirin, do not stop taking it unless you were instructed to do so. ?? If you take Lovenox (enoxaparin), please do the following: On the DAY BEFORE your surgery, take your regular morning dose by 7AM even if you usually take this dose later in the morning. After thisdose, do not take any further doses before your surgery. ?? If you use inhalers, please bring them with you on the day of your procedure. ?? If you take medicines for Parkinson's disease, please bring them with you on the day of your procedure. ?? If you have pain, you may take tylenol (acetaminophen). Do not take more than 6 tablets or 3000 mg (3 g) within a 24 period. Call your surgeon and the CPAP clinic if any of the following happens before surgery: ?? Any changes in your health ?? You have a fever ?? You have any signs of an infection (chest, urinary tract or tooth) ?? You have been to the Emergency Room or were in the hospital ?? You have started taking any new medications ?? You have questions about a bowel prep or special diet before surgery EF DRILLER * Perioperative Nursing Note - Rula Mayer RN - 07/27/2019 4:45 PM CST [facility] Perioperative Nursing Note Telephone Preoperative Evaluation ([facility]) - TELEPHONE ONLY, NO PHYSICAL EXAM Date: 07/27/19 Vitals: 07/27/19 1639 Weight: 73.9 kg (163 lb) Height: 154.9 cm (5' 1 ) CHEST CIRCUMFERENCE: N/A Social History Tobacco Use Smoking Status Never Smoker Smokeless Tobacco Never Used Substance and Sexual Activity Alcohol Use Yes ??? Alcohol/week: 4.0 standard drinks ??? Types: 4 Standard drinks or equivalent per week Substance and Sexual Activity Drug Use Never Outpatient Medications Marked as Taking for the 08/12/19 encounter (Hospital Encounter) with Josias Pedersen MD Medication Sig Dispense Refill ??? CALCIUM ORAL Take 1 tablet by mouth every morning ??? docosahexanoic acid/epa (FISH OIL ORAL) Take 1 tablet by mouth every morning ??? ibuprofen (ADVIL,MOTRIN) 200 mg tab/cap Take 200 mg by mouth every 6 (six) hours as needed for pain ??? vitamin b complex tablet Take 2 tablets by mouth every morning Implants No active implants to display in this view. SKIN Piercings Remaining: Yes Wound (LDAs) Type of Wound (LDA): (None) SCREENINGS Dangelo Fall Risk Score: 15 Jumana index score: 100 Is someone currently physically or emotionally hurting you or your family?: Denies NUTRITION PATIENT CARE PLANNING Advance Directives (For Healthcare) Advance Directive: Patient does not have advance directive Communication/Community Relations Assistant Needs Communication Needs: Glasses Patient's Preferred Language: Uzbek Assistive Devices/DME: None Discharge Planning Type of Residence: Private residence Living Arrangements: Spouse/significant other Support Systems: Spouse/significant other Patient expects to be discharged to:: Private residence(Civil Transportation Engineer and Caregiver: ) ADDITIONAL COMMENTS/ FOLLOW UP EF DRILLER * Pre-Procedure Instructions - Rula Mayer RN - 07/27/2019 4:41 PM CST PRE-SURGICAL INSTRUCTIONS ?? Surgery location provided to patient ?? Arrival time and surgical time will be provided by your surgeon. ?? Bring a current list of all medications. ?? Bring your photo ID and insurance card with you. ?? Bring a method of payment for any deductible that may be due. Antiseptic/antibacterial soap will decrease the amount of germs on your skin. The chance of gettingan infection will reduce so it is important to minimize risk for infection by doing the following: ?? Change bed linens the night before surgery so you are sleeping in clean sheets . ?? Shower the evening before and the morning of surgery with an antibacterial soap such as dial or chlorhexidine. ?? Wash your hair and face with your regular shampoo ( no conditioners) and facial cleanser. Do notuse the antiseptic soap on your face or hair. ?? Do not shave the area where surgery is to be performed 24 hours prior to surgery. ?? No lotions, powders, creams, make-up, deodorant, hair products or Vaseline the morning of surgery ?? Wear clean loose comfortable clothes the morning of surgery. If your surgeon's office has not notified you of your surgery time within 2 days of your surgery, please call [phone] and ask for your surgeon's office Dr. Pederesn. EF DRILLER documented in this encounter Plan of Treatment Not on file documented as of this encounter Procedures Procedure Name Priority Date/Time Associated Diagnosis Comments MASTOPEXY 08/12/2019 12:40 PM RELIEF DRILLER Encounter for cosmetic surgery Case Notes *ALLERGAN IMPLANTS WILL BE PROVIDED BY THE SURGEON.VENDOR WILL SHIP TO [facility]. REMOVE CHARGE FLAG BEFORE POSTING CHARGES. KV AUGMENTATION MAMMOPLASTY 08/12/2019 12:40 PM RELIEF DRILLER Encounter for cosmetic surgery Case Notes *ALLERGAN IMPLANTS WILL BE PROVIDED BY THE SURGEON.VENDOR WILL SHIP TO [facility] [employer]. REMOVE CHARGE FLAG BEFORE POSTING CHARGES. KV ABDOMINOPLASTY 08/12/2019 12:40 PM RELIEF DRILLER Encounter for cosmetic surgery Case Notes *ALLERGAN IMPLANTS WILL BE PROVIDED BY THE SURGEON.VENDOR WILL SHIP TO [employer]. REMOVE CHARGE FLAG BEFORE POSTING CHARGES. KV POCT COTININE Routine 08/12/2019 10:35 AM RELIEF DRILLER POCT HCG, URINE Routine 08/12/2019 10:34 AM RELIEF DRILLER documented in this encounter Results * POCT cotinine (08/12/2019 10:35 AM RELIEF DRILLER) Cotinine, POC Negative Lot Number [id number] QC Negative Control Acceptable QC Positive Control Acceptable Urine 08/12/2019 10:3 5 AM RELIEF DRILLER [facility] Provider POINT OF CARE TEST ORDERA BLES Final Result * POCT hCG, urine (08/12/2019 10:34 AM RELIEF DRILLER) HCG, ur, POC Negative Lot Number [id number] QC Backgroud Clear Acceptable QC Control Line Acceptable Urine 08/12/2019 10:3 4 AM RELIEF DRILLER Historical Provider POINT OF CARE TEST ORDERA BLES Final Result documented in this encounter Visit Diagnoses Not on filedocumented in this encounter Administered Medications Inactive Administered Medications - up to 3 most recent administrations Medication Order MAR Action Action Date Dose Rate Site bupivacaine preservative free 0.25 % in On-Q reservoir 270 mL 4 mL/hr, infiltration, Continuous, Starting on Tawny 08/12/19 at 1115, Pre-Op, Dual: 2 mL/hr per site. Do NOT squeeze the On-Q pump. Make sure tubing clamp is open. If the tubing appears kinked/crimped, massage area of tubing to facilitate flow. Make sure the dressing over the catheter site remains clean and dry. Do NOT remove remove dressing as this may dislodge the catheter. If wound drainage is present and/or dressing is not secure, reinforce and call MD. To ensure flow rate accuracy, do not tape over the in-line filter or expose to heat or cold therapy in close proximity to the flow controller. Notify provider for signs of intravascular local anesthetic toxicity: metallic taste in mouth, ringing in ears, mouth/lip numbness or tingling. To be started during procedure., Indications: Postoperative PainIndications:Postoperative Pain bupivacaine preservative free 0.25 % in On-Q reservoir 270 mL 4 mL/hr, infiltration, Continuous, Starting on Tawny 08/12/19 at 1115, Pre-Op, Dual: 2 mL/hr per site. Do NOT squeeze the On-Q pump. Make sure tubing clamp is open. If the tubing appears kinked/crimped, massage area of tubing to facilitate flow. Make sure the dressing over the catheter site remains clean and dry. Do NOT remove remove dressing as this may dislodge the catheter. If wound drainage is present and/or dressing is not secure, reinforce and call MD. To ensure flow rate accuracy, do not tape over the in-line filter or expose to heat or cold therapy in close proximity to the flow controller. Notify provider for signs of intravascular local anesthetic toxicity: metallic taste in mouth, ringing in ears, mouth/lip numbness or tingling. To be started during procedure., Indications: Postoperative PainIndications:Postoperative Pain ceFAZolin (ANCEF) 2,000 mg/20 mL in sterile water (premix) 2,000 mg 2,000 mg, intravenous, at 400 mL/hr, Administer over 3 Minutes, Every 8 hours, First dose on Tawny 08/12/19 at 2000, For 2 doses, Start 8 hours after pre-op dose., Indications: Prophylaxis, SurgicalIndications:Prophylax is, Surgical New Bag 08/13/2019 4:05 AM RELIEF DRILLER 2,000 mg 400 mL/hr New Bag 08/12/2019 8:15 PM RELIEF DRILLER 2,000 mg 400 mL/hr dextrose 5% and sodium chloride 0.45% infusion (premix) 100 mL/hr, intravenous, Continuous, Starting on Tawny 08/12/19 at 1730, May discontinue when tolerating PO. New Bag 08/12/2019 5:32 PM RELIEF DRILLER 100 mL/hr 100 mL/hr diazePAM (VALIUM) tablet 5 mg 5 mg, oral, Every 6 hours PRN, muscle spasms, Starting on Tawny 08/12/19 at 1659, Indications: Muscle SpasmIndications:Muscle Spasm Given 08/13/2019 4:05 AM RELIEF DRILLER 5 mg Given 08/12/2019 9:10 PM RELIEF DRILLER 5 mg diphenhydrAMINE (BENADRYL) tab/cap 25 mg 25 mg, oral, Every 6 hours PRN, itching, Starting on Tawny 08/12/19 at 1659, Indications: ItchingIndications:Itching docusate sodium (COLACE) capsule 100 mg 100 mg, oral, 2 times daily, First dose on Fri08/12/19 at 2100, Indications: constipationIndications:constipation Given 08/13/2019 8:29 AM RELIEF DRILLER 100 mg Given 08/12/2019 8:16 PM RELIEF DRILLER 100 mg fondaparinux (ARIXTRA) injection 2.5 mg 2.5 mg, subcutaneous, Daily, First dose on Fri08/13/19 at 0600, Indications: VTE ProphylaxisIndications:VTE Prophylaxis Given 08/13/2019 5:17 AM RELIEF DRILLER 2.5 mg Right Outer Thigh HYDROmorphone (DILAUDID) injection 0.2 mg 0.2 mg, intravenous, Administer over 2 Minutes, Every 5 min PRN, 2nd line for pain, Use as 1st line pain med for patients at [facility]. Use as 2nd line at after consulting with anesthesiologist., Starting on Tawny 08/12/19 at 1544, Phase I, Notify Anesthesiologist if total PACU dose reaches 2 mg for inpatients and 1 mg total for outpatients, and pain score 5/10 or more., Indications: PainIndications:Pain Given 08/12/2019 4:12 PM RELIEF DRILLER 0.2 mg Given 08/12/2019 4:06 PM RELIEF DRILLER 0.2 mg Given 08/12/2019 4:01 PM RELIEF DRILLER 0.2 mg HYDROmorphone (DILAUDID) injection 0.2 mg 0.2 mg, intravenous, Administer over 2 Minutes, Every 4 hours PRN, 2nd line for pain, Starting on Tawny 08/12/19 at 1659, May administer 1 hour after second dose of 1st line analgesic agent for uncontrolled or increasing pain., Indications: PainIndications:Pain Lactated Ringer's (LR) infusion 30 mL/hr, intravenous, Continuous, Starting on Tawny 08/12/19 at 1115, Pre-Op, Use a 500 ml bag for End Stage Renal Disease Patients New Bag 08/12/2019 10:48 AM RELIEF DRILLER 30 mL/hr 30 mL/hr oxyCODONE-acetaminophen (PERCOCET) 5-325 mg per tablet 1 tablet 1 tablet, oral, Every 4 hours PRN, 1st line for pain, Starting on Tawny 08/12/19 at 1659, May repeat in 1 hour if pain is uncontrolled or increasing. Max 2 doses within 1 dosing interval., Indications: PainIndications:Pain Given 08/13/2019 1:42 PM RELIEF DRILLER 1 tablet Given 08/13/2019 9:08 AM RELIEF DRILLER 1 tablet Given 08/13/2019 1:10 AM RELIEF DRILLER 1 tablet prochlorperazine (COMPAZINE) injection 10 mg 10 mg, intravenous, Every 6 hours PRN, nausea, vomiting, Use if unable to tolerate PO, Starting on Tawny 08/12/19 at 1659, Indications: Nausea and VomitingIndications:Nausea and Vomiting prochlorperazine (COMPAZINE) tablet 5 mg 5 mg, oral, Every 6 hours PRN, nausea, vomiting, Starting on Tawny 08/12/19 at 1659, Indications: Nausea and VomitingIndications:Nausea and Vomiting Given 08/12/2019 8:27 PM RELIEF DRILLER 5 mg scopolamine patch 72 hour 1 patch 1 patch, transdermal, Administer over 72 Hours, Once, On Tawny 08/12/19 at 1115, For 1 dose, Pre-Op, Apply to Dr. Monzon's patients, as well as to beach-chair position shoulder surgery patients, and to patients with a history of PONV and/or Motion Sickness. Do NOT administer to patients with a history of BPH or Glaucoma. Consult Anesthesiologist with any questions., Indications: Motion Sickness, Prevention of Motion Sickness, Prevention of Post-Operative Nausea and VomitingIndications:Motion Sickness,Prevention of Motion Sickness,Prevention of Post-Operative Nausea and Vomiting Medication Applied 08/12/2019 10:43 AM RELIEF DRILLER 1 patch Behind Left Ear sodium chloride 0.9% bolus 500 mL 500 mL, intravenous, Once, On Tawny 08/12/19 at 1930, For 1 dose New Bag 08/12/2019 8:16 PM RELIEF DRILLER 500 mL sodium chloride 0.9% flush 0.5-20 mL 0.5-20 mL, intra-catheter, Every 8 hours scheduled, First dose on Tawny 08/12/19 at 1730, Flush volume based on line type and size. , Indications: FlushingIndications:Flushin g Given 08/12/2019 8:20 PM RELIEF DRILLER 10 mL sodium chloride 0.9% flush 0.5-20 mL 0.5-20 mL, intra-catheter, As needed, line care, Starting on Tawny 08/12/19 at 1659, Flush volume based on line type and size. Flush before and after each use. , Indications: FlushingIndications:Flushin g documented in this encounter Discontinued Medications Medication Sig Discontinue Reason Start Date End Da te ibuprofen (ADVIL,MOTRIN) 200 mg tab/cap Take 200 mg by mouth every 6 (six) hours as needed for pain Stop Taking at Discharge 08/13/2019 docosahexanoic acid/epa (FISH OIL ORAL)Indications:OTC Take 1 tablet by mouth every morning Stop Taking at Discharge 08/13/2019 documented as of this encounter Historical Medications * This list may reflect changes made after this encounter. cefuroxime (CEFTIN) 250 mg tablet 08/04/2019 vitamin b complex tabletIndications :Vitamin Deficiency Prevention Take 2 tablets by mouth every morning CALCIUM ORALIndications:O TC Take 1 tablet by mouth every morning docosahexanoic acid/epa (FISH OIL ORAL)Indications: OTC Take 1 tablet by mouth every morning 08/13/2019 ibuprofen (ADVIL,MOTRIN) 200 mg tab/cap Take 200 mg by mouth every 6 (six) hours as needed for pain 08/13/2019 added in this encounter Active and Recently Administered Medications Times are shown in RELIEF DRILLER. Scheduled Medication Order 08/11/2019 08/12/2019 08/13/2019 ceFAZolin (ANCEF) 1 gram/10 mL in sterile water (premix) 2,000 mg (COMPLETED) 2,000 mg, intravenous, at 400 mL/hr, Administer over 3 Minutes, Once, On Tawny 08/12/19 at 1130, For 1 dose, Pre-Op, Administer within 60 minutes of incision., Indications: Prophylaxis, Surgical 1236 (Given - Provider: Dionne Chaves CRNA) ceFAZolin (ANCEF) 2,000 mg/20 mL in sterile water (premix) 2,000 mg (COMPLETED) 2,000 mg, intravenous, at 400 mL/hr, Administer over 3 Minutes, Every 8 hours, First dose on Tawny 08/12/19 at 2000, For 2 doses, Start 8 hours after pre-op dose., Indications: Prophylaxis, Surgical 2014 (New Bag - Provider: Cheryl Arevalo RN) 0405 (New Bag - Provider: Cheryl Arevalo RN)0415 (Stopped - Provider: Cheryl Arevalo RN) docusate sodium (COLACE) capsule 100 mg 100 mg, oral, 2 times daily, First dose on Tawny 08/12/19 at 2100, Indications: constipation 2016 (Given - Provider: Cheryl Arevalo RN) 0829 (Given - Provider: Loan Choudhary RN) fondaparinux (ARIXTRA) injection 2.5 mg 2.5 mg, subcutaneous, Daily, First dose on Fri08/13/19 at 0600, Indications: VTE Prophylaxis 0517 (Given - Provid er: Cheryl Arevalo RN) scopolamine patch 72 hour 1 patch 1 patch, transdermal, Administer over 72 Hours, Once, On Tawny 08/12/19 at 1115, For 1 dose, Pre-Op, Apply to Dr. Monzon's patients, as well as to beach-chair position shoulder surgery patients, and to patients with a history of PONV and/or Motion Sickness. Do NOT administer to patients with a history of BPH or Glaucoma. Consult Anesthesiologist with any questions., Indications: Motion Sickness, Prevention of Motion Sickness, Prevention of Post-Operative Nausea and Vomiting 1043 (Medication Applied - Provider: Kalyani Pride RN) 1410 (Due: Medication Removed - Provider: Automatic Discharge Provider - Comment: Time automatically adjusted from order being discontinued) sodium chloride 0.9% bolus 500 mL (COMPLETED) 500 mL, intravenous, Once, On Tawny 08/12/19 at 1930, For 1 dose 2015 (New Bag - Provider: Cheryl Arevalo RN)2130 (Stopped - Provider: Cheryl Arevalo RN) sodium chloride 0.9% flush 0.5-20 mL 0.5-20 mL, intra-catheter, Every 8 hours scheduled, First dose on Tawny 08/12/19 at 1730, Flush volume based on line type and size. , Indications: Flushing 185 (Not Given - Provider: Keli Zamarripa RN - Reason: IV Infusing)2019 (Given - Provider: Cheryl Arevalo RN) 0518 (Not Given - Provider: Cheryl Arevalo RN - Reason: IV Infusing)1400 (Due) Continuous Medication Order 08/11/2019 08/12/2019 08/13/2019 bupivacaine preservative free 0.25 % in On-Q reservoir 270 mL 4 mL/hr, infiltration, Continuous, Starting on Tawny 08/12/19 at 1115, Pre-Op, Dual: 2 mL/hr per site. Do NOT squeeze the On-Q pump. Make sure tubing clamp is open. If the tubing appears kinked/crimped, massage area of tubing to facilitate flow. Make sure the dressing over the catheter site remains clean and dry. Do NOT remove remove dressing as this may dislodge the catheter. If wound drainage is present and/or dressing is not secure, reinforce and call MD. To ensure flow rate accuracy, do not tape over the in-line filter or expose to heat or cold therapy in close proximity to the flow controller. Notify provider for signs of intravascular local anesthetic toxicity: metallic taste in mouth, ringing in ears, mouth/lip numbness or tingling. To be started during procedure., Indications: Postoperative Pain 1115 (Due) bupivacaine preservative free 0.25 % in On-Q reservoir 270 mL 4 mL/hr, infiltration, Continuous, Starting on Tawny 08/12/19 at 1115, Pre-Op, Dual: 2 mL/hr per site. Do NOT squeeze the On-Q pump. Make sure tubing clamp is open. If the tubing appears kinked/crimped, massage area of tubing to facilitate flow. Make sure the dressing over the catheter site remains clean and dry. Do NOT remove remove dressing as this may dislodge the catheter. If wound drainage is present and/or dressing is not secure, reinforce and call MD. To ensure flow rate accuracy, do not tape over the in-line filter or expose to heat or cold therapy in close proximity to the flow controller. Notify provider for signs of intravascular local anesthetic toxicity: metallic taste in mouth, ringing in ears, mouth/lip numbness or tingling. To be started during procedure., Indications: Postoperative Pain 1115 (Due) dextrose 5% and sodium chloride 0.45% infusion (premix) 100 mL/hr, intravenous, Continuous, Starting on Tawny 08/12/19 at 1730, May discontinue when tolerating PO. 1732 (New Bag - Provider: Keli Zamarripa RN) Lactated Ringer's (LR) infusion 30 mL/hr, intravenous, Continuous, Starting on Tawny 08/12/19 at 1115, Pre-Op, Use a 500 ml bag for End Stage Renal Disease Patients 1048 (New Bag - Provider: Kalyani Pride RN)1353 (Anesthesia Volume Adjustment - Provider: Dionne Chaves CRNA)1513 (Anesthesia Volume Adjustment - Provider: Dionne Chaves CRNA) Lactated Ringer's (LR) infusion 125 mL/hr, intravenous, Continuous, Starting on Tawny 08/12/19 at 1615, Phase I 1615 (Due) PRN Medication Order 08/11/2019 08/12/2019 08/13/2019 bacitracin 50,000 Units, ceFAZolin (ANCEF) 1,000 mg, gentamicin (GARAMYCIN) 80 mg in sodium chloride 0.9 % 1,000 mL irrigation solution (bottle) (CANCELED) As needed, Starting on Tawny 08/12/19 at 1335, Intra-Op 1335 (Given - Provider: Josias Pedersen MD - Comment: 1000cc to breast / 1000cc to abdomen) bupivacaine (MARCAINE) 0.25 % (2.5 mg/mL) preservative free injection (CANCELED) As needed, Starting on Tawny 08/12/19 at 1407, Intra-Op 1407 (Given - Provider: Josias Pedersen MD - Comment: filled with 270cc infusing 4ml/Hr (2ml/Hr per site)) diazePAM (VALIUM) tablet 5 mg 5 mg, oral, Every 6 hours PRN, muscle spasms, Starting on Tawny 08/12/19 at 1659, Indications: Muscle Spasm 2110 (Given - Provider: Cheryl Arevalo RN) 0405 (Given - Provider: Cheryl Arevalo RN) diphenhydrAMINE (BENADRYL) tab/cap 25 mg 25 mg, oral, Every 6 hours PRN, itching, Starting on Tawny 08/12/19 at 1659, Indications: Itching HYDROmorphone (DILAUDID) injection 0.2 mg (CANCELED) 0.2 mg, intravenous, Administer over 2 Minutes, Every 5 min PRN, 2nd line for pain, Use as 1st line pain med for patients at [facility]. Use as 2nd line at after consulting with anesthesiologist., Starting on Tawny 08/12/19 at 1544, Phase I, Notify Anesthesiologist if total PACU dose reaches 2 mg for inpatients and 1 mg total for outpatients, and pain score 5/10 or more., Indications: Pain 1551 (Given - Provider: Aliya Stiles RN)1556 (Given - Provider: Aliya Stiles RN)1601 (Given - Provider: Aliya Stiles RN)1606 (Given - Provider: Aliya Stiles RN)1612 (Given - Provider: Aliya Stiles RN) HYDROmorphone (DILAUDID) injection 0.2 mg 0.2 mg, intravenous, Administer over 2 Minutes, Every 4 hours PRN, 2nd line for pain, Starting on Tawny 08/12/19 at 1659, May administer 1 hour after second dose of 1st line analgesic agent for uncontrolled or increasing pain., Indications: Pain oxyCODONE-acetaminophen (PERCOCET) 5-325 mg per tablet 1 tablet 1 tablet, oral, Every 4 hours PRN, 1st line for pain, Starting on Tawny 08/12/19 at 1659, May repeat in 1 hour if pain is uncontrolled or increasing. Max 2 doses within 1 dosing interval., Indications: Pain 1734 (Given - Provider: Keli Zamarripa RN)2110 (Given - Provider: Cheryl Arevalo RN) 0110 (Given - Provider: Cheryl Arevlao RN)0517 (Not Given - Provider: Cheryl Arevalo RN - Reason: Patient/family refused - Comment: Pt would like to wait. Med returned to [facility].)0908 (Given - Provider: Loan Choudhary, REUBEN)1342 (Given - Provider: Loan Choudhary, REUBEN) povidone-iodine (BETADINE) 10 % external solution (CANCELED) As needed, Starting on Tawny 08/12/19 at 1409, Intra-Op 1409 (Given - Provider: Josias Pedersen MD - Comment: used in implant irrigation) prochlorperazine (COMPAZINE) injection 10 mg(Linked Group 1) 10 mg, intravenous, Every 6 hours PRN, nausea, vomiting, Use if unable to tolerate PO, Starting on Tawny 08/12/19 at 1659, Indications: Nausea and Vomiting 2026 (See Alternative - Provider: Cheryl Arevalo RN) prochlorperazine (COMPAZINE) tablet 5 mg(Linked Group 1) 5 mg, oral, Every 6 hours PRN, nausea, vomiting, Starting on Tawny 08/12/19 at 1659, Indications: Nausea and Vomiting 2026 (Given - Provider: Cheryl Arevalo RN) sodium chloride 0.9% flush 0.5-20 mL 0.5-20 mL, intra-catheter, As needed, line care, Starting on Tawny 08/12/19 at 1659, Flush volume based on line type and size. Flush before and after each use. , Indications: Flushing Linked Groups Order Group 1: prochlorperazine (COMPAZINE) tablet 5 mgJump to med 5 mg, oral, Every 6 hours PRN, nausea, vomiting, Starting on Tawny 08/12/19 at 1659, Indications: Nausea and Vomiting Or prochlorperazine (COMPAZINE) injection 10 mgJump to med 10 mg, intravenous, Every 6 hours PRN, nausea, vomiting, Use if unable to tolerate PO, Starting on Tawny 08/12/19 at 1659, Indications: Nausea and Vomiting documented in this encounter Orders Medications Ordered That Eleuterio ht Not Have Been Administered Count Last Ordered Date First Ordered Date acetaminophen (TYLENOL) tablet 500 mg bacitracin 50,000 Units, ceF AZolin (ANCEF) 1,000 mg, gentamicin (GARAMYCIN) 80 mg in sodium chloride 0.9 % 1,000 mL irrigation solution (bottle) 08/12/2019 bupivacaine (MARCAINE) 0.25 % (2.5 mg/mL) preservative free injection 2 08/12/2019 bupivacaine preservative alex e 0.25 % in On-Q reservoir 270 mL 2 08/12/2019 ceFAZolin (ANCEF) 1 gram/10 mL in sterile water (premix) 2,000 mg 1 08/12/2019 diphenhydrAMINE (BENADRYL) i njection 12.5 mg 1 08/12/2019 diphenhydrAMINE (BENADRYL) tab/cap 25 mg 1 08/12/2019 fentaNYL (SUBLIMAZE) preserv ative free injection 25 mcg 1 08/12/2019 hydrALAZINE (APRESOLINE) injection 5 mg 1 0 08/12/2019 HYDROcodone-acetaminophen (N ORCO) 5-325 mg per tablet 1 tablet 1 08/12/2019 HYDROmorphone (DILAUDID) injection 0.2 mg 1 08/12/2019 labetalol (NORMODYNE,TRANDAT E) injection 5 mg 1 08/12/2019 Lactated Ringer's (LR) infusion 1 0 meperidine (DEMEROL) preserv ative free injection 12.5 mg 1 08/12/2019 ondansetron (ZOFRAN) injection 4 mg 1 08/12 povidone-iodine (BETADINE) 1 0 % external solution 1 08/12/2019 prochlorperazine (COMPAZINE) injection 10 mg 1 08/12/2019 prochlorperazine (COMPAZINE) injection 5 mg 1 08/12/2019 scopolamine patch 72 hour 1 patch 1 020 sodium chloride 0.9% flush 0.5-20 mL 3 07/22 Diet Count Last Ordered Date First Orde red Date ADULT DISCHARGE DIET 1 08/13/2019 Nursing Count Last Ordered Date First Orde red Date DISCHARGE ACTIVITY 3 08/13/2019 DISCHARGE CALL PROVIDER 5 08/13/2019 DISCHARGE DRESSING 2 08/13/2019 FOLLOW UP WITH ESTABLISHED PROVIDER 1 08/13 WEIGHT RESTRICTIONS 1 08/13/2019 CORE MEASURES Count Last Ordered Date First Ord ered Date REASON FOR NO VTE PROPHYLAXIS AT ADMISSION 1 08/12/2019 documented in this encounter Care Teams Commercial Photographer Relationship Specialty Start Date End Date Dudley Anne MD [address] [place] [address] PCP - General 02/02/19 [place] [id number] [facility] [address] [place] [address] Surgeon Plastic Surgery 08/13/19 documented as of this encounter
--- OUTSIDE RECORDS SUMMARY | 2024-07-06 04:52 | XMS_ITS | Encounter Summary ---
Author Organization [facility] Facility Care Team Providers Care Early Childhood Specialist Name Role Phone Dudley Anne MD Primary Care Provider [phone] Encounter Details Date Type Department Care Team (Latest Contact Info) Description 07/27/2019 Travel Social History Tobacco Use Types Packs/Day Years Used Date Smoking Tobacco: Never Smokeless Tobacco: Never Alcohol Use Standard Drinks/Week Comments Yes 4 (1 standard drink = 0.6 oz pur e alcohol) Comments Unknown Sex and Gender Information Value Date Recorded Sex Assigned at Not on file Legal Sex Female 1:29 PM CDT Gender Identity Not on file Sexual Orientation Not on file documented as of this encounter Plan of Treatment Not on file documented as of this encounter Visit Diagnoses Not on filedocumented in this encounter Care Teams Early Childhood Specialist Relationship Specialty Start Date End Date Dudley Anne MD [address] [place] [address] PCP - General 02/02/19 documented as of this encounter
--- OUTSIDE RECORDS SUMMARY | 2024-07-06 04:52 | XMS_ITS | Encounter Summary ---
Author Organization [facility] Facility Care Team Providers Care Cylinder Sander Operator Name Role Phone Dudley Anne MD Primary Care Provider [phone] Encounter Details Date Type Department Care Team (Latest Contact Info) Description 08/12/2019 Travel Social History Tobacco Use Types Packs/Day [...] on filedocumented in this encounter Care Teams Cylinder Sander Operator Relationship Specialty Start Date End Date Dudley Anne MD [address] [place] [address] PCP - General 02/02/19 documented as of this encounter
--- OUTSIDE RECORDS SUMMARY | 2024-07-06 04:52 | XMS_ITS | Encounter Summary ---
Author Organization [facility] Healthcare Address [address] [place] [address] Care Team Providers Care Custodial Maintenance Worker Name Role Phone Dudley Anne MD Primary Care Provider [phone] Encounter Details Date Type Department Care Team (Late st Contact Info) Description 02/05/2019 8:13 AM CDT Hospital Encounter [facility]IM Selena Ferrell, CAMP HOUSEKEEPER [address] [facility] [address] [place] [address] Social History Tobacco Use Types Packs/Day Years Used Date Smoking Tobacco: Never Assessed Comments Unknown Sex and Gender Information Value Date Recorded Sex Assigned at Not on file Legal Sex Female 1:29 PM CDT Gender Identity Not on file Sexual Orientation Not on file documented as of this encounter Plan of Treatment Not on file documented as of this encounter Procedures Procedure Name Priority Date/Time Associated Diagnosis Comments SCREENING MAMMOGRAM BILATERAL W KIRAN 02/05/2019 8:16 AM CDT GENERAL RADIOLOGY REPORT 02/05/2019 12:00 AM CDT documented in this encounter Results * Screening Mammogram Bilateral W Kiran (02/05/2019 8:16 AM CDT) Anatomical Region Laterality Modality Breast Bilateral Mammography 02/05/2019 8:19 AM CDT Narrative 02/05/2019 8:27 AM CDT Patient Name: REBEKAH RAE ?Ordering Dr: Selena Ferrell ?? D.O.B: 1980 ? Exam Date: 02/05/19 ?? 0816 ?? Age: 38 ?Sex: Female ? MR#: [id number] ?? Loc: ? RADIOLOGY REPORT ?? Order #[id number] ?? [facility] ? Elvira Bilat Screening 3D ? Signed ?- MG ?? BILATERAL DIGITAL SCREENING MAMMOGRAM 3D/2D WITH MEDIOLATERAL OBLIQUE ?? CRANIOCAUDAL: 02/05/2019 ?? The study was acquired using full field digital technology and interpreted from ?soft copy. ?2D digital mammographic views, as well as 3D digital tomosynthesis were ?? performed in the CC and MLO projections. ? CLINICAL: Baseline mammogram. Denies any problems today. No personal history of ?breast cancer. No family history of breast cancer. ? COMPARISONS: No prior exams were available for comparison. ? BREAST TISSUE: The tissue of both breasts is extremely dense, which lowers the ?? sensitivity of mammography. ? FINDINGS: No significant masses, calcifications, or other findings are seen in ?? either breast. ? IMPRESSION: BI-RAD 1 ??NEGATIVE ?? There is no mammographic evidence of malignancy. A 1 year screening mammogram ?? is recommended. ? The patient has been or will be contacted. ? We recommend annual screening mammography for women at average risk of breast ?? cancer beginning at age 40, based on guidelines of the [employer] ?? [employer] (ACR Practice Parameter for the Performance of Screening and ?? Diagnostic Mammography) and [employer] ?? [employer]nec[employer]. For women with an elevated risk of breast cancer, please refer ?? to the ACR Practice Parameter for specific screening recommendations. ? The patient will be entered into a reminder system with a target due date of 1 ?? year for her next screening exam. ? Electronically signed by: ?Ja Charles M.D. ? /[email or web address]:02/05/2019 08:27:03 ? Lidar Analyst: Greta Asher, [facility] ?? letter sent: Normal Exam ? Reading location: [facility] ?? BI-RADS: 1 Negative ? REPORT ELECTRONICALLY SIGNED IN OTHER VENDOR SYSTEM ?? Resulting Agency Comment O Procedure Note Ja Charles MD - 02/05/2019 Patient Name: Allan RAE Dr: Selena Ferrell D.O.B: 1980 Exam Date: 02/05/19815 Age: 38 Sex: Female MR#: [id number] Loc: RADIOLOGY REPORT Order #[id number] [facility] Elvira Bilat Screening 3D Signed - MG BILATERAL DIGITAL SCREENING MAMMOGRAM 3D/2D WITH MEDIOLATERAL OBLIQUE CRANIOCAUDAL: 02/05/2019 The study was acquired using full field digital technology andinterpreted from soft copy. 2D digital mammographic views, as well as 3D digital tomosynthesis were performed in the CC and MLO projections. CLINICAL: Baseline mammogram. Denies any problems today. No personalhistory of breast cancer. No family history of breast cancer. COMPARISONS: No prior exams were available for comparison. BREAST TISSUE: The tissue of both breasts is extremely dense, whichlowers the sensitivity of mammography. FINDINGS: No significant masses, calcifications, or other findings areseen in either breast. IMPRESSION: BI-RAD 1 NEGATIVE There is no mammographic evidence of malignancy. A 1 year screeningmammogram is recommended. The patient has been or will be contacted. We recommend annual screening mammography for women at average risk ofbreast cancer beginning at age 40, based on guidelines of the [employer] (ACR Practice Parameter for the Performance of Screening and Diagnostic Mammography) and [employer]. For women with an elevated risk of breast cancer, pleaserefer to the ACR Practice Parameter for specific screening recommendations. The patient will be entered into a reminder system with a target due dateof 1 year for her next screening exam. Electronically signed by: Ja Charles M.D., md/linda:02/05/2019 08:27:03 Lidar Analyst: Greta Asher, [facility] letter sent: Normal Exam Reading location: [facility] BI-RADS: 1 Negative REPORT ELECTRONICALLY SIGNED IN OTHER VENDOR SYSTEM Selena CEJA MAMMO PROCEDURES Final Resul t * GENERAL RADIOLOGY REPORT (02/05/2019 12:00 AM CDT) Anatomical Region Laterality Modality Radiographic Alisa ging Narrative 02/05/2019 12:00 AM CDT Ordered by an unspecified provider. us Historical Provider MD CEJA XR PROCEDURES Final R esult documented in this encounter Visit Diagnoses Not on filedocumented in this encounter Care Teams Custodial Maintenance Worker Relationship Specialty Start Date End Date Dudley Anne MD [address] [place] [address] PCP - General 02/02/19 documented as of this encounter
--- OUTSIDE RECORDS SUMMARY | 2024-07-06 04:52 | XMS_ITS | Encounter Summary ---
Author Organization [facility] Healthcare Address [address] [place] [address] Care Team Providers Care Transfer Specialist Name Role Phone Dudley Anne MD Primary Care Provider [phone] Encounter Details Date Type Department Care Team (Late st Contact Info) Description 08/12/2019 12:30 PM FRUIT SHIPPER - 08/12/2019 4:30 PM FRUIT SHIPPER Surgery [facility] Operating Room [address] [address] [place] [address] [place] [address] EXTENDED ABDOMINOPLASTY Surgery Details Date/Time Status Location OR Service Patient Class Case Cl ass Case Type Trauma Case? 08/12/2019 12:30 PM Posted [facility] OPERATING ROOM OR Plastics Outpatient in Bed Elective Panel 1 Procedure LRB Anes Op Region Wound Class Comments EXTENDED ABDOMINOPLASTY N/A General Abdomen Class I - Clean Bilateral breast augmentatio n, SOFT TOUCH IMPLANTS Bilateral General Breast Class I - Clean Bilateral ELIPSE MASTOPEXY Bilateral General Breast Cla ss I - Clean Surgeon Surgeon Role Service Panel Josias Pedersen MD Primary Plastics 1 Case Notes *ALLERGAN IMPLANTS WILL BE PROVIDED BY THE SURGEON.VENDOR WILL SHIP TO [facility]. REMOVE CHARGE FLAG BEFORE POSTING CHARGES. KV documented in this encounter Social History Tobacco Use Types Packs/Day Years [...] Sign Reading Time Taken Comments Blood Pressure 151/86 08/12/2019 4:30 PM FRUIT SHIPPER Pulse 84 08/12/2019 4:30 PM FRUIT SHIPPER Temperature 36.6 ??C (97.9 ??F) 08/12/2019 4:15 PM CS T Respiratory Rate 18 08/12/2019 4:30 PM FRUIT SHIPPER Oxygen Saturation 97% 08/12/2019 4:30 PM FRUIT SHIPPER Inhaled Oxygen Concentration - - Weight 68 kg (150 lb) 08/12/2019 10:36 AM FRUIT SHIPPER Height 154.9 cm (5' 1 ) 08/12/2019 10:36 AM FRUIT SHIPPER Body Mass Index 28.34 08/12/2019 10:36 AM FRUIT SHIPPER documented in this encounter Medications at Time [...] MD, Last Rate: 100 mL/hr at 08/12/19 1732, 100 mL/hr at 08/12/19 173 ??? diazePAM [...] Range HCG, ur, POC Negative Lot Number [id number] QC Backgroud Clear Acceptable QC Control Line [...] Instructions reviewed in detail. Josias Pedersen MD T SHIPPER * Josias Pedersen MD - 08/12/2019 7:54 [...] 0.2 mg, 0.2 mg, intravenous, Q4H PRN, Josisa Pedersen MD ??? Lactated Ringer's (LR) infusion, [...] 0.5-20 mL, intra-catheter, Q8H RAHUL, Josias Pedersen MD ??? sodium chloride 0.9% [...] Range HCG, ur, POC Negative Lot Number [id number] QC Backgroud Clear Acceptable QC Control Line [...] discharge planned for AM. Josias Pedersen MD T SHIPPER documented in this encounter H&P Notes * [...] Range HCG, ur, POC Negative Lot Number [id number] QC Backgroud Clear Acceptable QC Control Line [...] augmentation. Admission to follow. Josias Pedersen MD T SHIPPER documented in this encounter Nursing Notes * Klei Zamarripa RN - 08/12/2019 7:52 PM CST Right breast increased in size and a bit firm when compared to left. Dr. Pedersen notified and said take down maribell wrap. Dr. Pedersen showed up at bedside and examined patient. He states pt is fine and no abnormalities. Will continue to minitor T SHIPPER * Keli Zamarripa RN - 08/12/2019 6:48 PM CST Low berkowitz output only 30ml over [address] Pedersen aware and new orders obtained. 500ml NSbolus and if berkowitz out picks up may remove berkowitz at 10pm T SHIPPER documented in this encounter Miscellaneous Notes * [...] output will improve Outcome: Adequate for Discharge T SHIPPER * Plan of [place] - Cheryl Arevalo [...] placed within reach, will continue to monitor. T SHIPPER * Plan of Care - Keli Zamarripa RN - 08/12/2019 5:28 PM CST Goals: Clinical Goals for the Shift: (pain control, IS, ankle pumps) Summary: T SHIPPER * Perioperative Nursing Note - Di Paredes RN - 08/12/2019 2:46 PM FRUIT SHIPPER Abdominal tissue removed-773 grams T SHIPPER * Brief Op Note - Josias Pedersen MD - 08/12/2019 1:08 PM CST Operative Progress Note Surgical Team: Surgeon(s) and Role: * Josias Pedersen MD - Primary Anesthesiologist: Aure Mccauley MD OPEN DEVELOPER OPERATOR: Dionne Chaves CRNA Final Assembler: Di Paredes RN; Sarah Kearns RN Scrub: ST Bill Technologist: ST Michelle ASSISTED LIVING ASSISTANT: KM Anaya DATE OF SURGERY : 08/12/2019 [...] Implant Name Type Inv. Item Serial No. Web Mobile Designer Lot No. LRB No. Used [employer] SSF-520 NATRELLE INSPIRA SMOOTH SHELL SURFACE SOFT TOUCH IMPLANT 520CC LATEX FREE - [id number] - [id number] Breast [employer] SSF- 520 Natrelle Inspira Smooth Shell Surface Soft Touch Implant 520cc Latex Free [id number] [employer] [id number] Right 1 [employer] SSF-485 NATRELLE INSPIRA SMOOTH SHELL SURFACE SOFT TOUCH IMPLANT 485CC LATEX FREE - [id number] - [id number] Breast [employer] SSF- 485 Natrelle Inspira Smooth Shell Surface Soft Touch Implant 485cc Latex Free [id number] [employer] [id number] Left 1 Blood/Blood Products Transfused: mls Complications: None Condition on Discharge from the operating room was stable Josias Pedersen MD Date: 08/12/2019 Time: 3:18 PM No Resident involved on case T SHIPPER * Op Note - Josias Pedersen MD - 08/12/2019 12:00 AM CST Attending Physician Josias Pedersen MD Screen Examiner PAT Oneal Preoperative Diagnosis Cosmetic procedure. Postoperative [...] which was a 485 mL device was [id number], serial number for the right device which was a 520 mL device was [id number]. The patient was noted to have very [...] skin edges in a running subcuticular fashion. Steriledressings were placed on top. Attention was turned [...] 2-0 PDS sutures were placed in a [id number] fashion to plicate the abdominal musculature. A [...] Hemostasis was carefully obtained with electrocautery. Two 15-Iraqi round drains were placed on top of [...] counts were accurate. Job ID/VF Job ID: [id number] T SHIPPER * Pre-Procedure Instructions - Carlie Porter NP - 08/02/2019 11:11 AM FRUIT SHIPPER [facility] Planning CPAP Clinic Location: [facility] The night before your surgery: * Do [...] bowel prep or special diet before surgery T SHIPPER * Perioperative Nursing Note - Rula Mayer RN - 07/27/2019 4:45 PM CST [facility] Planning Perioperative Nursing Note Telephone Preoperative Evaluation ([facility]) - TELEPHONE ONLY, NO PHYSICAL EXAM Date: [...] Directive: Patient does not have advance directive Communication/Chief Controller Tower Needs Communication Needs: Glasses Patient's Preferred Language: Danish Assistive Devices/DME: None Discharge Planning Type of Residence: Private residence Living Arrangements: Spouse/significant other Support Systems: Spouse/significant other Patient expects to be discharged to:: Private residence(Stripper Cutter Machine and Caregiver: ) ADDITIONAL COMMENTS/ FOLLOW UP T SHIPPER * Pre-Procedure Instructions - Rula Mayer RN [...] 2 days of your surgery, please call [phone] and ask for your surgeon's office Dr. Pedersen. T SHIPPER documented in this encounter Plan of Treatment Not on file documented as of this encounter Procedures Procedure Name Priority Date/Time Associated Diagnosis Comments MASTOPEXY 08/12/2019 12:40 PM FRUIT SHIPPER Encounter for cosmetic surgery Case Notes *ALLERGAN IMPLANTS WILL BE PROVIDED BY THE SURGEON.VENDOR WILL SHIP TO [facility]. REMOVE CHARGE FLAG BEFORE POSTING CHARGES. KV AUGMENTATION MAMMOPLASTY 08/12/2019 12:40 PM FRUIT SHIPPER Encounter for cosmetic surgery Case Notes *ALLERGAN IMPLANTS WILL BE PROVIDED BY THE SURGEON.[facility] REMOVE CHARGE FLAG BEFORE POSTING CHARGES. KV ABDOMINOPLASTY 08/12/2019 12:40 PM FRUIT SHIPPER Encounter for cosmetic surgery Case Notes *ALLERGAN IMPLANTS WILL BE PROVIDED BY THE SURGEON.[facility] REMOVE CHARGE FLAG BEFORE POSTING CHARGES. KV POCT COTININE Routine 08/12/2019 10:35 AM FRUIT SHIPPER POCT HCG, URINE Routine 08/12/2019 10:34 AM FRUIT SHIPPER documented in this encounter Results * POCT cotinine (08/12/2019 10:35 AM FRUIT SHIPPER) Cotinine, POC Negative Lot Number [id number] QC Negative Control Acceptable QC Positive Control Acceptable Urine 08/12/2019 10:3 5 AM FRUIT SHIPPER [facility] Provider MD POINT OF CARE TEST ORDERA BLES Final Result * POCT hCG, urine (08/12/2019 10:34 AM FRUIT SHIPPER) HCG, ur, POC Negative Lot Number [id number] QC Backgroud Clear Acceptable QC Control Line Acceptable Urine 08/12/2019 10:3 4 AM FRUIT SHIPPER [facility] Provider MD POINT OF CARE TEST ORDERA BLES Final Result documented in this encounter Visit Diagnoses Diagnosis Encounter for cosmetic surgery documented in this encounter Administered Medications Inactive Administered Medications - up to 3 most recent administrations Medication Order MAR Action Action Date Dose Rate Site bacitracin 50,000 Units, ceFAZolin (ANCEF) 1,000 mg, gentamicin (GARAMYCIN) 80 mg in sodium chloride 0.9 % 1,000 mL irrigation solution (bottle) As needed, Starting on Tawny 08/12/19 at 1335, Intra-Op Given 08/12/2019 1:35 PM FRUIT SHIPPER 1,000 mL Surgical Site bupivacaine (MARCAINE) 0.25 % (2.5 mg/mL) preservative free injection As needed, Starting on Tawny 08/12/19 at 1407, Intra-Op Given 08/12/2019 2:07 PM FRUIT SHIPPER 270 mL Abdominal Tissue bupivacaine preservative free 0.25 % in On-Q [...] To be started during procedure., Indications: Postoperative PainIndications:Postope rative Pain bupivacaine preservative free 0.25 % in [...] To be started during procedure., Indications: Postoperative PainIndications:Postope rative Pain ceFAZolin (ANCEF) 2,000 mg/20 mL in sterile water (premix) 2,000 mg 2,000 mg, intravenous, at 400 mL/hr, Administer over 3 Minutes, Every 8 hours, First dose on Tawny 08/12/19 at 2000, For 2 doses, Start 8 hours after pre-op dose., Indications: Prophylaxis, SurgicalIndications:Pro phylaxis, Surgical New Bag 08/13/2019 4:05 AM FRUIT SHIPPER 2,000 mg 400 mL/hr New Bag 08/12/2019 8:15 PM FRUIT SHIPPER 2,000 mg 400 mL/hr dextrose 5% and sodium chloride 0.45% infusion (premix) 100 mL/hr, intravenous, Continuous, Starting on Tawny 08/12/19 at 1730, May discontinue when tolerating PO. New Bag 08/12/2019 5:32 PM FRUIT SHIPPER 100 mL/hr 100 mL/hr diazePAM (VALIUM) tablet 5 mg 5 mg, oral, Every 6 hours PRN, muscle spasms, Starting on Tawny 08/12/19 at 1659, Indications: Muscle SpasmIndications:Muscle Spasm Given 08/13/2019 4:05 AM FRUIT SHIPPER 5 mg Given 08/12/2019 9:10 PM FRUIT SHIPPER 5 mg diphenhydrAMINE (BENADRYL) tab/cap 25 mg 25 mg, oral, Every 6 hours PRN, itching, Starting on Tawny 08/12/19 at 1659, Indications: ItchingIndications:Itching docusate sodium (COLACE) capsule 100 mg 100 mg, oral, 2 times daily, First dose on Tawny 08/12/19 at 2100, Indications: constipationIndications:constipation Given 08/13/2019 8:29 AM FRUIT SHIPPER 100 mg Given 08/12/2019 8:16 PM FRUIT SHIPPER 100 mg fondaparinux (ARIXTRA) injection 2.5 mg 2.5 mg, subcutaneous, Daily, First dose on Fri08/13/19 at 0600, Indications: VTE ProphylaxisIndications:VTE Prophylaxis Given 08/13/2019 5:17 AM FRUIT SHIPPER 2.5 mg Right Outer Thigh HYDROmorphone (DILAUDID) injection 0.2 mg 0.2 mg, intravenous, Administer over 2 Minutes, Every 5 min PRN, 2nd line for pain, Use as 1st line pain med for patients at [facility]. Use as 2nd line at after consulting with anesthesiologist., Starting on Tawny 08/12/19 at 1544, Phase I, Notify Anesthesiologist if total PACU dose reaches 2 mg for inpatients and 1 mg total for outpatients, and pain score 5/10 or more., Indications: PainIndications:Pain Given 08/12/2019 4:12 PM FRUIT SHIPPER 0.2 mg Given 08/12/2019 4:06 PM FRUIT SHIPPER 0.2 mg Given 08/12/2019 4:01 PM FRUIT SHIPPER 0.2 mg HYDROmorphone (DILAUDID) injection 0.2 mg [...] Disease Patients New Bag 08/12/2019 10:48 AM FRUIT SHIPPER 30 mL/hr 30 mL/hr oxyCODONE-acetaminophen (PERCOCET) 5-325 mg per tablet 1 tablet 1 tablet, oral, Every 4 hours PRN, 1st line for pain, Starting on Tawny 08/12/19 at 1659, May repeat in 1 hour if pain is uncontrolled or increasing. Max 2 doses within 1 dosing interval., Indications: PainIndications:Pain Given 08/13/2019 1:42 PM FRUIT SHIPPER 1 tablet Given 08/13/2019 9:08 AM FRUIT SHIPPER 1 tablet Given 08/13/2019 1:10 AM FRUIT SHIPPER 1 tablet povidone-iodine (BETADINE) 10 % external solution As needed, Starting on Tawny 08/12/19 at 1409, Intra-Op Given 08/12/2019 2:09 PM FRUIT SHIPPER 1 application (deactivated) Other (Comment) prochlorperazine (COMPAZINE) injection 10 mg 10 mg, intravenous, Every 6 hours PRN, nausea, vomiting, Use if unable to tolerate PO, Starting on Tawny 08/12/19 at 1659, Indications: Nausea and VomitingIndications:Naus ea and Vomiting prochlorperazine (COMPAZINE) tablet 5 mg 5 mg, oral, Every 6 hours PRN, nausea, vomiting, Starting on Tawny 08/12/19 at 1659, Indications: Nausea and VomitingIndications:Naus ea and Vomiting Given 08/12/2019 8:27 PM FRUIT SHIPPER 5 mg scopolamine patch 72 hour 1 [...] Motion Sickness, Prevention of Post-Operative Nausea and VomitingIndications:Arnel on Sickness,Prevention of Motion Sickness,Prevention of Post-Operative Nausea and Vomiting Medication Applied 08/12/2019 10:43 AM FRUIT SHIPPER 1 patch Behind Left Ear sodium chloride 0.9% bolus 500 mL 500 mL, intravenous, Once, On Tawny 08/12/19 at 1930, For 1 dose New Bag 08/12/2019 8:16 PM FRUIT SHIPPER 500 mL sodium chloride 0.9% flush 0.5-20 mL 0.5-20 mL, intra-catheter, Every 8 hours scheduled, First dose on Tawny 08/12/19 at 1730, Flush volume based on line type and size. , Indications: FlushingIndications:Flus jessee Given 08/12/2019 8:20 PM FRUIT SHIPPER 10 mL sodium chloride 0.9% flush 0.5-20 mL 0.5-20 mL, intra-catheter, As needed, line care, Starting on Tawny 08/12/19 at 1659, Flush volume based on line type and size. Flush before and after each use. , Indications: FlushingIndications:Flus jessee documented in this encounter Discontinued Medications Medication [...] Recently Administered Medications Times are shown in FRUIT SHIPPER. Scheduled Medication Order 08/11/2019 08/12/2019 08/13/2019 ceFAZolin [...] First dose on Fri08/12/19 at 2100, Indications: constipation 2015 (Given - Provider: Cheryl Arevalo RN) 0829 [...] Vomiting 1043 (Medication Applied - Provider: Kalyani Pride, REUBEN) 1410 (Due: Medication Removed - Provider: Automatic Discharge Provider - Comment: Time automatically adjusted from order being discontinued) sodium chloride 0.9% bolus 500 mL (COMPLETED) 500 mL, intravenous, Once, On Tawny 08/12/19 at 1930, For 1 dose 2015 (New Bag - Provider: Cheryl Arevalo RN)2129 (Stopped - Provider: Cheryl Arevalo RN) sodium chloride 0.9% flush 0.5-20 mL 0.5-20 mL, intra-catheter, Every 8 hours scheduled, First dose on Tawny 08/12/19 at 1730, Flush volume based on line type and size. , Indications: Flushing 1856 (Not Given - Provider: Keli Zamarripa RN [...] 1st line pain med for patients at [facility]. Use as 2nd line at after consulting [...] Arevalo RN) 0110 (Given - Provider: Cheryl Arevalo RN)0517 (Not Given - Provider: Cheryl Arevalo RN - Reason: Patient/family refused - Comment: Pt would like to wait. Med returned to [facility].)0908 (Given - Provider: Loan Choudhary RN)1342 (Given - Provider: Loan Choudhary RN) povidone-iodine (BETADINE) 10 % external solution (CANCELED) As needed, Starting on Tawny 08/12/19 at 1409, Intra-Op 1409 (Given - Provider: Josias Pedresen MD - Comment: used in implant irrigation) [...] Ordered Date acetaminophen (TYLENOL) tablet 500 mg bupivacaine (MARCAINE) 0.25 % (2.5 mg/mL) preservative free injection 08/12/2019 bupivacaine preservative alex e 0.25 % in On-Q reservoir 270 mL 2 08/12/2019 ceFAZolin (ANCEF) 1 gram/10 mL in sterile water (premix) 2,000 mg 1 08/12/2019 diphenhydrAMINE (BENADRYL) i njection 12.5 mg 08/12/2019 diphenhydrAMINE (BENADRYL) tab/cap 25 mg 08/12/2019 fentaNYL (SUBLIMAZE) preserv ative free injection 25 mcg 08/12/2019 hydrALAZINE (APRESOLINE) injection 5 mg 1 0 08/12/2019 HYDROcodone-acetaminophen (N ORCO) 5-325 mg per tablet 1 tablet 08/12/2019 HYDROmorphone (DILAUDID) injection 0.2 mg 1 08/12/2019 labetalol (NORMODYNE,TRANDAT E) injection 5 mg 1 08/12/2019 Lactated Ringer's (LR) infusion 0 meperidine (DEMEROL) preserv ative free injection 12.5 mg 08/12/2019 ondansetron (ZOFRAN) injection 4 mg 08/12 prochlorperazine (COMPAZINE) injection 10 mg 08/12/2019 prochlorperazine (COMPAZINE) injection 5 mg 08/12/2019 scopolamine patch 72 hour 1 patch [...] 08/12/2019 documented in this encounter Care Teams Transfer Specialist Relationship Specialty Start Date End Date Dudley Anne MD [address] [place] [address] PCP - General 02/02/19 documented as of this encounter
--- OUTSIDE RECORDS SUMMARY | 2024-07-06 04:52 | XMS_ITS | Encounter Summary ---
Author Organization [facility] Healthcare Address [address] [place] [address] Care Team Providers Care Temporary Administrative Assistant Name Role Phone Dudley Anne MD Primary Care Provider [phone] Encounter Details Date Type Department Care Team (Late st Contact Info) Description 08/12/2019 12:36 PM CANTEEN OPERATOR Anesthesia Event [facility] Operating Room [address] [place] [address] Aure Mccauley MD [address] [place] [address] Samantha Cullne NP [address] [facility] [phone] [place] [address] Anesthesia Record Procedure Summary Procedure Name Responsible Anesthesiologist Anesthesia Start Time Anesthesia Stop Time EXTENDED ABDOMINOPLASTY (Abdomen) Aure Mccauley MD 08/12/19 1236 08/12/19 1540 Events Date Time Event Comment 08/12/2019 1035 1057 AN Equip Check 1236 An Start 1240 In Room 1241 An Start Data 1246 An Induction The patient was reevaluated immediately before moderate or deep sedation use and before anesthesia induction. 1249 An Intubation 1252 Anesthesia Ready 1305 Proc Start 1308 Incision Start 1526 An Extubation 1529 an stop data 1529 Proc Fin 1532 Out of Room 1540 Handoff to RN I completed my handoff to the receiving nurse during which we: 1. Patient identified 2. Responsible provider identified 3. Pertinent medical history reviewed 4. Procedure type and surgical course discussed 5. Intraoperative anesthetic management and any significant issues discussed 6. Expectations and concerns for postop period discussed 7. Questions solicited from receiving nurse 8. Patient disposition at the time of handoff: PACU 1540 An Stop Meds Name Total midazolam 2 mg/2 mL 2 mg fentaNYL PF 200 mcg lidocaine 1 % PF 50 mg propofol 150 mg rocuronium 50 mg HYDROmorphone 2 mg/mL 0.5 mg neostigmine syringe 1 mg/mL 1.5 mg glycopyrrolate 0.2 mg famotidine PF 20 mg metoclopramide 10 mg ondansetron PF 4 mg dexamethasone 10 mg/mL PF 8 mg ceFAZolin (ANCEF) 1 gram/10 mL in steril e water (premix) 2,000 mg 2,000 mg Lactated Ringer's (LR) infusion 1,777 mL * Agents Name O2 Air Sevoflurane Inspired Sevoflurane * Blood No blood administrations on file. Lines, Drains, and Airways Type Details Placement Removal Closed/Suction/Open Drain 08/12/19; 1426; No; 1; Right; Abdomen; Bulb; 15 Fr. 08/12/19 1426 by Di Paredes RN Closed/Suction/Open Drain 08/12/19; 1428; No; 2; Left; Abdomen; Bulb; 15 Fr. 08/12/19 1428 by Di Paredes RN Pump Device (Retired) 08/12/19; 1433; ; Pain pump; Medial; Abdomen; OnQ; No 08/12/19 1433 by Di Paredes RN Peripheral IV Placement Date: 08/12/19; Placement Time: 1047; Catheter Size: 20 G; Orientation: Left; Location: Forearm; Site Prep: Chlorhexidine; Inserted by: Marielos; Insertion Attempts: 1; Patient Tolerance: Tolerated well; Removal Date: 08/13/19; Removal Time: 1350; Removal Reason: Discharge 08/12/19 1047 by Samira Pride RN 08/13/19 1350 by Loan Choudhary RN ETT Placement Date: 08/12/19; Placement Time: 1249 (created via procedure documentation); Technique: Direct laryngoscopy; Type: ETT - single; Single Lumen Tube Size: 7 mm; Cuffed: Yes; Laryngoscope: Tomás; Blade Size: 4; Location: Oral; Grade View: Grade I; Insertion Attempts: 1; Placement Verification: Auscultation, Capnometry; Removal Date: 08/12/19; Removal Time: 15208/12/19 1249 by Dionne Chaves CRNA 08/12/19 1526 by Dionne Chaves CRNA Urethral Catheter Placement Date: 08/12/19; Placement Time: 1255; Inserted by: Stacy; Type: Non-latex; Size: 16 Fr.; Balloon Size: 10 mL; Urine Returned: Yes; Removal Date: 08/13/19; Removal Time: 0115; Removal Reason: Per order 08/12/19 1255 by Di Paredes RN 08/13/19 0115 by Cheryl Arevalo RN RETIRED Surgical Site 08/12/19; 1421; Le ft; Breast; 06/22/24 (Retired LDA, Removed/Completed by [facility] with LDA Utility); 1213 (Retired LDA, Removed/Completed by [facility] with LDA Utility) 08/12/19 1421 by Di Paredes RN 06/22/24 1213 by Discharge Provider, Automatic RETIRED Surgical Site 08/12/19; 1421; Right; Breast; 06/22/24 (Retired LDA, Removed/Completed by [facility] with LDA Utility); 1213 (Retired LDA, Removed/Completed by [facility] with LDA Utility) 08/12/19 1421 by Di Paredes RN 06/22/24 1213 by Discharge Provider, Automatic RETIRED Surgical Site 08/12/19; 1421; Bilateral; Abdomen; 06/22/24 (Retired LDA, Removed/Completed by [facility] with LDA Utility); 1213 (Retired LDA, Removed/Completed by [facility] with LDA Utility) 08/12/19 1421 by Di Paredes RN 06/22/24 1213 by Discharge Provider, Automatic documented in this encounter Social History Tobacco [...] on file documented as of this encounter OR Notes * Anesthesia Postprocedure Evaluation - Aure Mccauley MD - 08/12/2019 4:16 PM CST Patient: Sasha Rae Procedure Summary Date: 08/12/19 Room / Location: [facility] 05 / [facility] Anesthesia Start: 1236 Anesthesia Stop: 1540 Procedures: EXTENDED ABDOMINOPLASTY (N/A Abdomen) Bilateral breast augmentation, SOFT TOUCH IMPLANTS (Bilateral Breast) Bilateral ELIPSE MASTOPEXY (Bilateral Breast) Diagnosis: Encounter for cosmetic surgery (Encounter for cosmetic surgery [Z41.1]) Surgeon: Josias Pedersen MD Responsible Provider: Aure Mccauley MD Anesthesia Type: general ASA Status: 2 Anesthesia Type: general Last vitals BP 158/88 Pulse 82 Temp 36.2 ??C (97.2 ??F) (Temporal) Resp 16 SpO2 100% Anesthesia Post Evaluation Patient location during evaluation: PACU Patient participation: complete - patient participated Level of consciousness: fully awake Pain score: 5 Pain management: adequate Airway patency: adequate and patent Evidence of recall: no Anesthetic complications: no Cardiovascular status: hemodynamically stable and acceptable Respiratory status: acceptable and nasal cannula Hydration status: euvolemic Pt is: normothermic Nausea/Vomiting status: none EEN OPERATOR * Anesthesia Procedure Notes - Dionne Chaves CRNA - 08/12/2019 1:00 PM CSTAssociated Order(s): Airway Airway Patient location: OR Urgency: elective Date/time: 08/12/2019 12:49 PM Indications for airway management: anesthesia Difficult airway: no Emergent airway documentation: Risks and benefits discussed: yes Consent obtained: yes Consent given by: patient Airway prep: Preoxygenated: yes Patient position: sniffing Spontaneous ventilation during airway: absent Sedation level during airway: GA Final airway details: Final airway type: endotracheal airway Tube type: ETT ETT size: 7.0 mm Cuffed: yes Technique used for successful ETT placement: direct laryngoscopy Devices/Methods used in placement: intubating stylet Insertion site: oral Blade type: Tomás Blade size: 4 Cormack-Lehane (direct): grade I - full view of glottis Cuff volume: 8 mL Cuff inflated with: air ETT to teeth: 22 cm Placement verified by: auscultation and CO2 detection Airway secured with: silk tape Number of attempts: 1 Ventilation between attempts: BVM Planned trial extubation: yes EEN OPERATOR * Anesthesia Preprocedure Evaluation - Aure Mccauley MD - 08/02/2019 10:58 AM CST Images from the original note were not included. [facility] for Preoperative Assessment and Planning Preoperative Evaluation Record Evaluation type/location: [facility] from [facility] Date: 08/02/19 Anesthesia Evaluation Sasha Rae is a 39 y.o. female Procedure(s): EXTENED ABDOMINOPLASTY Bilateral breast augmentation, SOFT TOUCH IMPLANTS Bilateral ELLIPSE MASTOPEXY Pre-Op Diagnosis Codes: * Encounter for cosmetic surgery [Z41.1] HISTORY HPI 39 year old with desire for cosmetic surgery evaluated prior to surgical interventions. Past Medical History Information obtained from: patient. Neurological Pertinent negatives: seizures; neuromuscular disease; CVA/stroke; TIA; CEA; ICA stenosis; dementia/mild cognitive impairment and carotid artery stent Cardiovascular Pertinent negatives: hypertension ; CAD ; AR ; CABG ; valvular heart disease; valve replacement; atrial fibrillation; arrhythmia; pacemaker/ICD; PVD; DVT/PE; negative for CHF; drug-eluting stent(s); bare metal stent(s) and coronary angioplasty Respiratory Pertinent negatives: COPD; asthma; sleep apnea (SYLVIA); pulmonary hypertension; no O2 use outside thehospital and non-smoker Hepatic / Heme Pertinent negatives: liver disease; history of anemia; history of thrombocytopenia and history of Oli positive Comments: Factor V Leiden Gastrointestinal Pertinent negatives: GERD and hiatal hernia Renal / Pertinent negatives: renal disease; dialysis and nephrolithiasis Musculoskeletal/Pain Pertinent negatives: chronic pain; chronic opioid use and previous treatment for opioid use disorder Endocrine / Other + Obesity (BMI >30) Pertinent negatives: diabetes mellitus; thyroid disease; cancer history; rheumatological disease and transplanted organ Functional Capacity Functional capacity: 4-6 METs Review of Systems + vision loss (corrective lenses) Pertinent negatives: productive cough; wheezing; SOB; recent cold/flu; fever; chest pain; palpitations; orthopnea; pedal edema; PND; heavy menses; Sickle Cell disease/trait; previous transfusion; transfusion reaction; melena/hematochezia; easy bruising; bleeding problems; syncope; dizziness; muscleweakness; chronic pain; numbness/tingling; hard of hearing; heartburn; nausea; dysphagia; diarrhea;dentures/partials; chipped/loose teeth; abdominal pain; diaphoresis and no unexpected weight change PAT Summary and Plans Cardiac risk classification of planned procedure: low cardiac risk. Preoperative assessment status: lab tests ordered. Additional comments: Sasha Rae is a 39 y.o. female who is being evaluated prior to undergoing a low cardiac risk surgery. Revised Cardiac Risk Index factors are (none) for a total RCRI of 0 out of 6. Functional capacity is 4-6 METs. Obstructive sleep apnea (SYLVIA) screening status is unknown secondary to telephone assessment. No type and screen needed Blood bank needs for day of procedure: none Pending labs/tests include: none This assessment was performed via telephone. Therefore the physical exam has been deferred to the day of surgery team. The patient was provided with preoperative instructions for their medications. The patient was informed that instructions regarding stopping any therapeutic antiplatelet or anticoagulant medications will be provided by the surgeon's office. The patient was instructed that they will likely need to stop their anticoagulant medication prior to surgery and that such instructions will be provided by the surgeon's office. The patient was instructed to shower/bathe the night prior and the morning of the planned procedure using an antibacterial soap. Patient instructions were provided in writing sent via [employer] mail. Patient verbalized understanding of preoperative plan. Preoperative evaluation performed by Carlie Porter NP on 08/02/19 at 11:05 AM.. There is no problem list on file for this patient. Past Medical History: Diagnosis Date ??? Factor V Leiden (CMS/HCC) Past Surgical History: Procedure Laterality Date ??? SECTION 1999, 2005 OB History No obstetric history on file. Allergies Allergen Reactions ??? Ciprofloxacin Rash Med List Status: Nurse Complete Set By: Rula Mayer RN at 07/27/2019 4:38 PM Taking? Last Dose Start Date End Date Provider CALCIUM ORAL -- -- Historical Provider, docosahexanoic acid/epa (FISH OIL ORAL) -- -- Historical Provider, ibuprofen (ADVIL,MOTRIN) 200 mg tab/cap -- -- Historical Provider, vitamin b complex tablet -- -- Historical Provider, No current facility-administered medications for this encounter. Current Outpatient Medications: ??? CALCIUM ORAL ??? docosahexanoic acid/epa (FISH OIL ORAL) ??? ibuprofen (ADVIL,MOTRIN) 200 mg tab/cap ??? vitamin b complex tablet Social History Tobacco Use Smoking Status Never Smoker Smokeless Tobacco Never Used Substance and Sexual Activity Alcohol Use Yes ??? Alcohol/week: 4.0 standard drinks ??? Types: 4 Standard drinks or equivalent per week Substance and Sexual Activity Drug Use Never No family history on file. There were no vitals filed for this visit. PT: No results found for requested labs within last 720 hours. INR: No results found for requested labs within last 720 hours. APTT: No results found for requested labs within last 720 hours. Hgb A1C: No results found for requested labs within last 720 hours. CBC RBC: No results found for requested labs within last 720 hours. RDW: No results found for requested labs within last 720 hours. MCHC: No results found for requested labs within last 720 hours. MCH: No results found for requested labs within last 720 hours. MCV: No results found for requested labs within last 720 hours. Hct: No results found for requested labs within last 720 hours. Hgb: No results found for requested labs within last 720 hours. WBC: No results found for requested labs within last 720 hours. MPV: No results found for requested labs within last 720 hours. Platelets: No results found for requested labs within last 720 hours. RDW CV: No results found for requested labs within last 720 hours. RDW Sd: No results found for requested labs within last 720 hours. BMP Glucose: No results found for requested labs within last 720 hours. Calcium: No results found for requested labs within last 720 hours. Sodium: No results found for requested labs within last 720 hours. Potassium: No results found for requested labs within last 720 hours. CO2: No results found for requested labs within last 720 hours. Chloride: No results found for requested labs within last 720 hours. BUN: No results found for requested labs within last 720 hours. Creatinine: No results found for requested labs within last 720 hours. Jumana index score: 100 DOS Physical Exam Medical history, medications, and allergies reviewed. Attestation: This PAT evaluation Airway Exam: Mallampati: III Cervical ROM: FROM Cardiovascular Exam: Rate: regular Rhythm: regular Pulmonary Exam: LCTA, bilat Anesthesia Plan ASA 2 My patient is approved for the Anesthesia Controlled Medication protocol when under care of a BAR PILOT Planned anesthesia: General Team communication plan: oral ET tube Informed Consent: Anesthesia plan and risks discussed with patient. Consent and Attending signature: I and/or my designee have discussed the anesthesia plan, benefits, possible alternatives, parental presence at time of induction (if indicated), and clinically relevant risks that may include dental injury, unintentional awareness, and/or other complications. The patient and/or parent/legal guardian understand, and agree to proceed. All questions answered. EEN OPERATOR EEN OPERATOR EEN OPERATOR EEN OPERATOR documented in this encounter Plan of Treatment Not on file documented as of this encounter Procedures Procedure Name Priority Date/Time Associated Diagnosis Comments TN AN PROCEDURE PLACEHOLDER Routine 08/12/2019 1:00 PM CANTEEN OPERATOR TN AN ELECTIVE ENDOTRACHEAL AIRWAY Routine 08/12/2019 1:00 PM CANTEEN OPERATOR documented in this encounter Results * TN AN ELECTIVE ENDOTRACHEAL AIRWAY, TN AN PROCEDURE PLACEHOLDER (08/12/2019 1:00 PM CANTEEN OPERATOR) Dionne Yanez CRNA - 08/12/2019 1:00 PM CANTEEN OPERATOR Dionne Chaves CRNA ? 08/12/2019 ??1:00 PM Airway Patient location: OR Urgency: elective Date/time: 08/12/2019 12:49 PM Indications for airway management: anesthesia Difficult airway: no Emergent airway documentation: Risks and benefits discussed: yes Consent obtained: yes Consent given by: patient Airway prep: Preoxygenated: yes Patient position: sniffing Spontaneous ventilation during airway: absent Sedation level during airway: GA Final airway details: Final airway type: endotracheal airway Tube type: ETT ETT size: 7.0 mm Cuffed: yes Technique used for successful ETT placement: direct laryngoscopy Devices/Methods used in placement: intubating stylet Insertion site: oral Blade type: Tomás Blade size: 4 Cormack-Lehane (direct): grade I - full view of glottis Cuff volume: 8 mL Cuff inflated with: air ETT to teeth: 22 cm Placement verified by: auscultation and CO2 detection Airway secured with: silk tape Number of attempts: 1 Ventilation between attempts: BVM Planned trial extubation: yes Aure Mccauley MD ANESTHESIA ORDERABLES Fi nal Result documented in this encounter Visit Diagnoses Not on filedocumented in this encounter Administered Medications Inactive Administered Medications - up to 3 most recent administrations Medication Order MAR Action Action Date Dose Rate Site ceFAZolin (ANCEF) 1 gram/10 mL in sterile water (premix) 2,000 mg 2,000 mg, intravenous, at 400 mL/hr, Administer over 3 Minutes, Once, On Tawny 08/12/19 at 1130, For 1 dose, Pre-Op, Administer within 60 minutes of incision., Indications: Prophylaxis, SurgicalIndications:Prophylaxis , Surgical Given 08/12/2019 12:36 PM CANTEEN OPERATOR 2,000 mg dexAMETHasone (DECADRON) preservative free solution intravenous, Administer over 2 Minutes, As needed, Starting on Tawny 08/12/19 at 1246, Anesthesia Intra-op Given 08/12/2019 12:46 PM CANTEEN OPERATOR 8 mg famotidine (PEPCID) injection intravenous, Administer over 2 Minutes, As needed, Starting on Tawny 08/12/19 at 1236, Anesthesia Intra-op Given 08/12/2019 12:36 PM CANTEEN OPERATOR 20 mg fentaNYL (SUBLIMAZE) preservative free injection intravenous, As needed, Starting on Tawny 08/12/19 at 1246, Anesthesia Intra-op Given 08/12/2019 1:59 PM CANTEEN OPERATOR 50 mcg Given 08/12/2019 1:23 PM CANTEEN OPERATOR 50 mcg Given 08/12/2019 12:58 PM CANTEEN OPERATOR 50 mcg glycopyrrolate (ROBINUL) injection intravenous, Administer over 1 Minutes, As needed, Starting on Tawny 08/12/19 at 1512, Anesthesia Intra-op Given 08/12/2019 3:12 PM CANTEEN OPERATOR 0.2 mg HYDROmorphone (DILAUDID) injection intravenous, Administer over 2 Minutes, As needed, Starting on Tawny 08/12/19 at 1430, Anesthesia Intra-op Given 08/12/2019 2:30 PM CANTEEN OPERATOR 0.5 mg lidocaine PF (XYLOCAINE) 10 mg/mL (1 %) preservative free injection As needed, Starting on Tawny 08/12/19 at 1246, Anesthesia Intra-op Given 08/12/2019 12:46 PM CANTEEN OPERATOR 50 mg metoclopramide (REGLAN) injection intravenous, Administer over 1 Minutes, As needed, Starting on Tawny 08/12/19 at 1236, Anesthesia Intra-op Given 08/12/2019 12:36 PM CANTEEN OPERATOR 10 mg midazolam (VERSED) injection intravenous, As needed, Starting on Tawny 08/12/19 at 1236, Anesthesia Intra-op Given 08/12/2019 12:36 PM CANTEEN OPERATOR 2 mg neostigmine injection intravenous, Administer over 3 Minutes, As needed, Starting on Tawny 08/12/19 at 1512, Anesthesia Intra-op Given 08/12/2019 3:12 PM CANTEEN OPERATOR 1.5 mg ondansetron (ZOFRAN) injection intravenous, Administer over 2 Minutes, As needed, Starting on Tawny 08/12/19 at 1236, Anesthesia Intra-op Given 08/12/2019 12:36 PM CANTEEN OPERATOR 4 mg propofol (DIPRIVAN) IV intravenous, As needed, Starting on Tawny 08/12/19 at 1246, Anesthesia Intra-op Given 08/12/2019 12:46 PM CANTEEN OPERATOR 150 mg rocuronium (ZEMURON) injection intravenous, As needed, Starting on Tawny 08/12/19 at 1246, Anesthesia Intra-op Given 08/12/2019 1:57 PM CANTEEN OPERATOR 20 mg Given 08/12/2019 12:46 PM CANTEEN OPERATOR 30 mg documented in this encounter Care Teams Temporary Administrative Assistant Relationship Specialty Start Date End Date Dudley Anne MD [phone] [place] [address] PCP - General 02/02/19 documented as of this encounter
--- NOTE | 2024-07-06 07:52 | PM.DS ---
DS: Admitting Diagnosis Discharge Date 07/04/24 Admitting Diagnosis Pelvic hematoma S/p robotic assisted laparoscopic hysterectomy DS: Discharge Diagnosis Discharge Diagnosis (1) Pelvic haematoma: Status: Acute (2) S/P laparoscopic hysterectomy: Code(s): Z90.710 - Acquired absence of both cervix and uterus Status: Acute DS: Summary Hospital Course Hospital Course: Rebekah is a 44yo [id number] who presented to the ER with increase in vaginal bleeding. She is s/p RA-TLH/BS/cysto on 06/14/24. She was seen in office recently and had endorsed watery discharge with a small amount of blood mixed in. She denied any odor. She reports her pain was very sharp yesterday (new symptom) and that's what worried her and made her come to the ER. The pain meds in the ER helped. She does endorse some constipation/hard stools. She is tolerating regular diet, slightly decreased appetite. She denies any fever, chills. No issues with her incision. At her post op visit 06/29/24, her significant other reported that she is getting stir crazy and had been quite active (noticed discharge after being active). CT scan in the ER shows a sub-acute pelvic hematoma, [id number]. She was admitted and started on IV antibiotics. She had minimal vaginal discharge. She was afebrile. Her pain had resolved. She was using the restroom normally and labs/vitals were stable. Urine and blood cultures were negative. She was transitioned to PO antibiotics and discharge home with plans for outpatient follow up in office on 07/08/24. She was encouraged to limit activity and be lazy ; no lifting, no extensive walking (less than 15-20minutes ok). Status at Discharge Functional status at discharge: independent ambulation Overall status at discharge: patient is back to baseline Time Spent with Patient Time attestation: Total time spent providing and/or coordinating discharge services: Time spent: Less than 30 minutes Exam Const: General: cooperative, healthy appearing, comfortable and no acute distress Orientation/consciousness: oriented to person, oriented to place and oriented to time Resp: Effort & Inspection: normal respiratory effort Auscultation: clear to auscultation bilaterally Cardio: Rate: regular rate GI: Inspection: incision (healed) Auscultation: normal bowel sounds : Other: ~3cc of brown/red (not bright red) blood on pad Neuro: General: oriented to person, oriented to place and oriented to time DS: Data Data Completed and Pending Labs on day of discharge: Preliminary micro results at discharge 07/02/24 18:23 Blood Culture - Preliminary Blood 07/02/24 18:24 Blood Culture - Preliminary Blood Discharge Plan Discharge Attending physician on discharge: Pat Gonsalez Consulting providers: Victor Hugo Leon; Avery Kelley V. Discharging Clinician: Pat Gonsalez Anticipated Discharge Date/Time: 07/04/24 13:00 Patient Disposition: Home, Self-Care Activity: may shower, no straining and pelvic rest Diet: regular Discharge Instructions: OBGYN Surgery Post-operative Care Instructions Hysterectomy (Vaginal, Laparoscopic, or Abdominal)? - Okay to shower immediately, avoid baths/pools for 6-8 weeks - Nothing in the vagina for 6-8 weeks (no tampons or intercourse) - Limit lifting to less than 10-15 pounds and strenuous exercise for 6-8 weeks Encouraged Activities/OTC Medications that are safe (Unless your doctor specifically told you not to take/do them, and you're not allergic) - Colace 1 capsule twice daily or Miralax daily to prevent constipation - Tylenol 1000mg every?6-8 hours?as needed for pain - Ibuprofen 600mg every?6-8 hours?as needed for pain - You can use heating pads or ice packs as needed if it helps with discomfort - Getting up/walking short distances multiple times daily-- we do not recommend bed rest, but also do not recommend walking LONG distances or prolonged standing/walking for more than 15-20 minutes at a time - Stay hydrated; try to drink 64oz/ 2L daily of water, smaller meals are okay (decreased appetite is common after anesthesia) CALL YOUR DOCTOR/GO TO THE EMERGENCY ROOM IF YOU: - Are having heavy vaginal bleeding (saturating 2 Kotex pads an hour) - Cannot keep food/liquids down - Have not peed in 6 hours or are unable to - Have not had a bowel movement?in 5 days - Have a rash concerning for an allergic reaction - Have a fever greater than 100.4 degrees Fahrenheit - Significant pain not relieved with your prescribed medications +/- OTC meds - Significant redness, drainage, or bleeding from your incision - If you had a hysterectomy and are having abnormal vaginal discharge and/or vaginal bleeding Patient Instructions: Antibiotic Form Patient Language: Surinamese Stand Alone Forms: General Discharge Information Follow-up/Referrals: Pat Gonsalez MD [Physician] - Discharge Medications: New metronidazole 500 mg Tablet 500 mg PO Q12H 14 Days Qty: 28 0RF sulfamethoxazole-trimethoprim 800-160 mg Tablet 1 tablet PO Q12HR 14 Days Qty: 28 0RF Continued fluconazole 150 mg tablet 150 mg PO Q72H Qty: 2 1RF Rx Instructions: as needed for yeast infection due to antibiotic usage acetaminophen 500 mg Tablet 1,000 mg PO Q6HR Qty: 90 0RF docusate sodium 100 mg Capsule 100 mg PO BID Qty: 90 0RF ibuprofen 600 mg Tablet 600 mg PO Q6HR Qty: 40 0RF oxycodone 5 mg tablet 5 mg PO Q6H PRN (Reason: pain) Discontinued amoxicillin-pot clavulanate 875-125 mg tablet 1 tablet PO BID 14 Days Qty: 28 0RF Date of admission: 07/02/24 18:02 Primary Care Provider: Miguelangel Zaidi Admitting Provider: Pat Gonsalez Attending physician on admission: Pat Gonsalez Condition: Stable
== END 2024-07-04 12:30 | disposition home or self-care (01) ==
LOC: ANHED 18:32 → ANH3MEDSUR 18:54
PROVIDERS: Physician Assistant; Admitting Provider Obstetrics & Gynecology; Emergency Provider Emergency Medicine; PCP Family Medicine; Visit Provider Obstetrics & Gynecology
DX: N99.841 Postprocedural hematoma of a genitourinary system organ or structure following other procedure (principal); D68.51 Activated protein C resistance; Z90.710 Acquired absence of both cervix and uterus; Z90.79 Acquired absence of other genital organ(s); Z79.899 Other long term (current) drug therapy; Z88.1 Allergy status to other antibiotic agents
CPT/HCPCS: 36415; 74177; 80053; 81001; 83690; 85025; 85027; 86140; 87040; 87086; 96365; 96366; 96367; 99285; A9270; G0378; J0696; J1836; J7120; Q9967